=== PATIENT | male | born 1945 | race American Indian/Alaskan Native ===

== ENCOUNTER 2022-01-29 15:57 | Inpatient (IN) | payer MEDICARE ==
[2022-01-30 09:55] LABS: Basophils % (Auto) 0.5 % (0.0-1.8); Eosinophils # (Auto) 0.1 K/mm3 (0.0-0.4); Eosinophils % (Auto) 1.6 % (0.0-4.3); Hemoglobin 13.5 gm/dl (11.8-15.2); Lymphocytes # (Auto) 1.5 K/mm3 (1.2-5.4); Lymphocytes % (Auto) 26.8 % (13.4-35.0); Mean Corpuscular HGB Conc 33 % (32-34); Mean Corpuscular Volume 84 fl (84-94); Monocytes # (Auto) 0.6 K/mm3 (0.0-0.8); Monocytes % (Auto) 10.4 % (0.0-7.3); Platelet Count 116 K/mm3 (140-440); Red Blood Count 4.87 M/mm3 (3.65-5.03); Red Cell Distribution Width 14.2 % (13.2-15.2)
[2022-01-30 10:17] LABS: Alanine Aminotransferase 16 units/L (7-56); Albumin 4.1 g/dL (3.9-5); BUN/Creatinine Ratio 13; Blood Urea Nitrogen 16 mg/dL (9-20); Calcium 9.4 mg/dL (8.4-10.2); HDL Cholesterol 50 mg/dL (40-59); Hemolysis Index 10; LDL Cholesterol,Direct 38 mg/dL (50-130)
--- NOTE | 2022-01-30 10:57 | History and Physical Report ---
GP History & Physical - History of Present Illness Date of admission: 01/29/22 Date of Examination: 01/30/22 Reason for Admission: Danger to self, Failure of Outpatient Treatment, Severe anxiety/depression History of Present Illness: HPI: Pt reportedly had made suicidal statements & had been a little bit threatening to others physically & verbally. The patient was seen today. He is a 76y/o male patient who was admitted to the ted-psych unit for suicidal statements and threats toward others. The patient is confused. He has poor insight and unable to be engaged in the evaluation due to his cognition. The patient could not tell me why he was brought to the hospital. He is rambling about "my life, and what they want me to do." PAST PSYCHIATRIC HISTORY: PAST MEDICAL HISTORY: None reported or document Family Psychiatric History: None reported or documented SOCIAL HISTORY REVIEW OF SYSTEMS MENTAL STATUS EXAMINATION Diagnoses: Dementia with behavioral disturbances Treatment Plan: Patient admitted for inpatient psychiatric evaluation, medication adjustment and close monitoring The patient's behavior, mood, sleep and appetite will be closely monitored. Patient enrolled in individual and group therapeutic sessions and encouraged to attend. Patient provided with a safe and structured environment. Patient's physical health needs will be addressed by the Hospitalist. Hospitalist Consulted Labs including CBC, CMP, Lipid profile and Hemoglobin A1C levels ordered for baseline reference Social Assessment will be completed and the Barrel Straightener will work with patient and family to ensure a suitable and safe disposition Medication adjustment will be made as clinically indicated Restarted home meds Usual Wellness Religion/Preservation: - Start Trazodone 50 mg po QHS & 50 mg po QHS PRN between 10 PM & 2 AM for insomnia - Start Melatonin 5 mg po QHS to promote circadian rhythm The patient agreed on the treatment plan, understood the risk, benefit, alternative treatment, potential consequence of no treatment, and gave informed consent. Estimated days: 7 Legal Status: Voluntary Reaction to Hospitalization: Accepting Medications and Allergies Allergies Allergy/AdvReac Type Severity Reaction Status Date / Time No Known Allergies Allergy Verified 01/29/22 22:41 Home Medications Medication Instructions Recorded Confirmed Last Taken Type Albuterol Sulfate [Proair 90 mcg IH BID PRN 01/30/22 01/30/22 Unknown History Respiclick] Apixaban [Eliquis] 5 mg PO BID 01/30/22 01/30/22 Unknown History AtorvaSTATin [Lipitor] 40 mg PO QHS 01/30/22 01/30/22 Unknown History Clopidogrel [Plavix] 75 mg PO QDAY 01/30/22 01/30/22 Unknown History Docusate Sodium [Colace] 100 mg PO BID 01/30/22 01/30/22 Unknown History FLUoxetine [PROzac] 20 mg PO QDAY 01/30/22 01/30/22 Unknown History Gabapentin 200 mg PO TID 01/30/22 01/30/22 Unknown History Insulin Degludec (Nf) [Tresiba 40 units SQ DAILY 01/30/22 01/30/22 Unknown History Flextouch U-100 (Nf)] Losartan [Cozaar] 50 mg PO QDAY 01/30/22 01/30/22 Unknown History Quetiapine Fumarate [SEROquel] 50 mg PO BID 01/30/22 01/30/22 Unknown History Tamsulosin [Flomax] 0.8 mg PO HS 01/30/22 01/30/22 Unknown History amLODIPine [Norvasc] 5 mg PO DAILY 01/30/22 01/30/22 Unknown History donepeziL [Aricept] 5 mg PO HS 01/30/22 01/30/22 Unknown History Results - Results Labs/Vitals: Laboratory Last Values WBC 5.7 K/mm3 (4.5-11.0) 01/30/22 09:02 RBC 4.87 M/mm3 (3.65-5.03) 01/30/22 09:02 Hgb 13.5 gm/dl (11.8-15.2) 01/30/22 09:02 Hct 41.0 % (35.5-45.6) 01/30/22 09:02 MCV 84 fl (84-94) 01/30/22 09:02 MCH 28 pg (28-32) 01/30/22 09:02 MCHC 33 % (32-34) 01/30/22 09:02 RDW 14.2 % (13.2-15.2) 01/30/22 09:02 Plt Count 116 K/mm3 (140-440) L 01/30/22 09:02 Lymph % (Auto) 26.8 % (13.4-35.0) 01/30/22 09:02 [place] % (Auto) 10.4 % (0.0-7.3) H 01/30/22 09:02 Eos % (Auto) 1.6 % (0.0-4.3) 01/30/22 09:02 Baso % (Auto) 0.5 % (0.0-1.8) 01/30/22 09:02 Lymph # (Auto) 1.5 K/mm3 (1.2-5.4) 01/30/22 09:02 [place] # (Auto) 0.6 K/mm3 (0.0-0.8) 01/30/22 09:02 Eos # (Auto) 0.1 K/mm3 (0.0-0.4) 01/30/22 09:02 Baso # (Auto) 0.0 K/mm3 (0.0-0.1) 01/30/22 09:02 Seg Neutrophils % 60.7 % (40.0-70.0) 01/30/22 09:02 Seg Neutrophils # 3.4 K/mm3 (1.8-7.7) 01/30/22 09:02 Sodium 136 mmol/L (137-145) L 01/30/22 09:02 Potassium 4.2 mmol/L (3.6-5.0) 01/30/22 09:02 Chloride 102.6 mmol/L (98-107) 01/30/22 09:02 Carbon Dioxide 22 mmol/L (22-30) 01/30/22 09:02 Anion Gap 16 mmol/L 01/30/22 09:02 BUN 16 mg/dL (9-20) 01/30/22 09:02 Creatinine 1.2 mg/dL (0.8-1.3) 01/30/22 09:02 Estimated GFR > 60 ml/min 01/30/22 09:02 BUN/Creatinine Ratio 13 % 01/30/22 09:02 Glucose 243 mg/dL (75-100) H 01/30/22 09:02 Hemoglobin A1c 8.9 % (4-6) H 01/30/22 09:02 Calcium 9.4 mg/dL (8.4-10.2) 01/30/22 09:02 Total Bilirubin 0.50 mg/dL (0.1-1.2) 01/30/22 09:02 AST 17 units/L (5-40) 01/30/22 09:02 ALT 16 units/L (7-56) 05/20/22 09:02 Alkaline Phosphatase 89 units/L (35-129) 01/30/22 09:02 Total Protein 7.6 g/dL (6.3-8.2) 01/30/22 09:02 Albumin 4.1 g/dL (3.9-5) 01/30/22 09:02 Albumin/Globulin Ratio 1.2 % 01/30/22 09:02 Triglycerides 76 mg/dL (2-149) 01/30/22 09:02 Cholesterol 100 mg/dL (50-199) 01/30/22 09:02 LDL Cholesterol Direct 38 mg/dL (50-130) L 01/30/22 09:02 HDL Cholesterol 50 mg/dL (40-59) 01/30/22 09:02 Cholesterol/HDL Ratio 2.00 % 01/30/22 09:02 TSH 1.020 mlU/mL (0.270-4.200) 01/30/22 09:02 Last Vital Signs Temp 98.1 F 01/29/22 22:41 Pulse 118 H 01/29/22 22:41 Resp 20 01/29/22 22:41 BP 129/88 01/29/22 22:41 Pulse Ox 99 01/29/22 22:41 Physical Examination - Constitutional Vitals: Vital Signs Temp Pulse Resp BP Pulse Ox 98.1 F 118 H 20 129/88 99 01/29/22 22:41 01/29/22 22:41 01/29/22 22:41 01/29/22 22:41 01/29/22 22:41 Temperature -Last 24 Hours Temperature 98.1 F Mental Status Exam - Vital signs Last Vital Signs Temp 98.1 F 01/29/22 22:41 Pulse 118 H 01/29/22 22:41 Resp 20 01/29/22 22:41 BP 129/88 01/29/22 22:41 Pulse Ox 99 01/29/22 22:41 Physician Certification - Certification Statement Physician Certification Statement: This is an acknowledgement statement that JIMENA GUZMÁN is a 76 year old M who requires inpatient psychiatric admission for treatment which could reasonabl y be expected to improve the patient's condition for Estimated period of time patient will need to remain in the hospital: [ ] Plan for post-hospital care: [ ]
[2022-01-30] MEDS ORDERED: NON-FORMULARY EACH (Albuterol Sulfate [Proair Respiclick] 90 MCG Aer.Pow.Ba) IH PRN (11:02)
[2022-01-30 11:05] LABS: Hepatitis B Surface Antigen Non-Reactive (Negative); Hepatitis C Virus Antibody Non-Reactive (NonReactive)
[2022-01-30] MEDS ORDERED: INSULN SQ SCH (11:15)
[2022-01-30] MEDS ORDERED: INSULIN DEGLUDEC 100 UNIT/ML SQ SCH (11:15)
[2022-01-30] MEDS ORDERED: NON-FORMULARY EACH (Quetiapine Fumarate [Seroquel] 50 MG Tablet) PO SCH (11:15)
[2022-01-30] MEDS ORDERED: ALBUTEROL 2.5 MG/3 ML NEBU IH PRN (11:23)
[2022-01-30] MEDS ORDERED: FLUoxetine 20 MG CAP PO SCH (12:00)
[2022-01-30] MEDS: LOSARTAN 50 MG TAB PO SCH (12:20)
[2022-01-30] MEDS: CLOPIDOGREL 75 MG TAB PO SCH (12:21)
[2022-01-30] MEDS: amLODIPine 5 MG TAB PO SCH (12:23)
[2022-01-30] MEDS: DOCUSATE SODIUM 100 MG CAP PO SCH ×2 (12:23→22:03)
[2022-01-30] MEDS: GABAPENTIN 100 MG CAP PO SCH ×2 (13:43→22:04)
[2022-01-30] MEDS ORDERED: DEXTROSE 50% IN WATER (25GM) 50 ML SYRINGE IV PRN (15:15)
[2022-01-30] MEDS: INSULIN LISPRO 100 UNIT/ML SUB-Q SCH ×2 (16:36→22:19)
--- NOTE | 2022-01-30 21:45 | Consultation ---
History of Present Illness - Reason for Consult Consult date: 01/29/22 Medical management Requesting physician: DAVID MAS - History of Present Illness 76 YO Male Vascular Dementia with Behavioral Disturbance, Cerebral Atherosclerosis, DM, HTN, Encephalopathy admitted to [facility] for psychiatric stabilization. Consult placed by Dr. Mas for medical ma nagement. Patient seen and evaluated in the patient room. No reports of fever, chills, chest pain, palpitation, productive cough, skin rash, recent contact, known exposure to COVID-19. Patient resting comfortably. No reported nursing events. Patient exhibits diminished cognition and aphasia. Patient remains at baseline level of cognition and function. Past History Past Medical History: diabetes, hypertension Past Surgical History: No surgical history, Other (Reviewed) Social history: single. denies: smoking, alcohol abuse, prescription drug abuse Family history: hypertension Medications and Allergies Allergies Allergy/AdvReac Type Severity Reaction Status Date / Time No Known Allergies Allergy Verified 01/29/22 22:41 Home Medications Medication Instructions Recorded Confirmed Last Taken Type Albuterol Sulfate [Proair 90 mcg IH BID PRN 01/30/22 01/30/22 Unknown History Respiclick] Apixaban [Eliquis] 5 mg PO BID 01/30/22 01/30/22 Unknown History AtorvaSTATin [Lipitor] 40 mg PO QHS 01/30/22 01/30/22 Unknown History Clopidogrel [Plavix] 75 mg PO QDAY 01/30/22 01/30/22 Unknown History Docusate Sodium [Colace] 100 mg PO BID 01/30/22 01/30/22 Unknown History FLUoxetine [PROzac] 20 mg PO QDAY 01/30/22 01/30/22 Unknown History Gabapentin 200 mg PO TID 01/30/22 01/30/22 Unknown History Insulin Degludec (Nf) [Tresiba 40 units SQ DAILY 01/30/22 01/30/22 Unknown History Flextouch U-100 (Nf)] Losartan [Cozaar] 50 mg PO QDAY 01/30/22 01/30/22 Unknown History Quetiapine Fumarate [SEROquel] 50 mg PO BID 01/30/22 01/30/22 Unknown History Tamsulosin [Flomax] 0.8 mg PO HS 01/30/22 01/30/22 Unknown History amLODIPine [Norvasc] 5 mg PO DAILY 01/30/22 01/30/22 Unknown History donepeziL [Aricept] 5 mg PO HS 01/30/22 01/30/22 Unknown History Active Meds: Active Medications Albuterol (Albuterol 2.5 Mg/3 Ml Nebu) 2.5 mg IH Q4HRT PRN PRN Reason: Shortness Of Breath Amlodipine Besylate (Amlodipine 5 Mg Tab) 5 mg PO DAILY [facility] Last Admin: 01/30/22 12:23 Dose: 5 mg Atorvastatin Calcium (Atorvastatin 40 Mg Tab) 40 mg PO QHS [facility] Clopidogrel Bisulfate (Clopidogrel 75 Mg Tab) 75 mg PO QDAY [facility] Last Admin: 01/30/22 12:21 Dose: 75 mg Dextrose (Dextrose 50% In Water (25gm) 50 Ml Syringe) 50 ml IV Q30MIN PRN; Protocol PRN Reason: Hypoglycemia Docusate Sodium (Docusate Sodium 100 Mg Cap) 100 mg PO BID [facility] Last Admin: 01/30/22 12:23 Dose: 100 mg Donepezil HCl (Donepezil 5 Mg Tab) 5 mg PO [facility] Fluoxetine HCl (Fluoxetine 20 Mg Cap) 20 mg PO QDAY [facility] Last Admin: 01/30/22 12:21 Dose: 20 mg Gabapentin (Gabapentin 100 Mg Cap) 200 mg PO TID [facility] Last Admin: 01/30/22 13:43 Dose: 200 mg Insulin Glargine (Insulin Glargine 100 Units/Ml) 40 units SUB-Q QHS [facility] Insulin Human Lispro (Insulin Lispro 100 Unit/Ml) 0 unit SUB-Q [facility]; Protocol Last Admin: 01/30/22 16:36 Dose: 6 unit Losartan Potassium (Losartan 50 Mg Tab) 50 mg PO QDAY [facility] Last Admin: 01/30/22 12:20 Dose: 50 mg Quetiapine Fumarate (Quetiapine 25 Mg Tab) 50 mg PO BID [facility] Tamsulosin HCl (Tamsulosin 0.4 Mg Cap) 0.8 mg PO [facility] Review of Systems Constitutional: no weight loss, no weight gain, no fever Ears, nose, mouth and throat: no tinnitis, no decreased hearing, no nasal discharge Cardiovascular: no chest pain, no rapid/irregular heart beat, no syncope Respiratory: no cough, no excessive sputum, no shortness of breath Gastrointestinal: no nausea, no diarrhea, no constipation Genitourinary Male: no hematuria, no urinary frequency, no nocturia Rectal: no pain Musculoskeletal: no low back pain, no redness of joints Integumentary: no pruritis, no sores Neurological: no parathesias, no tingling, no seizures, no syncope Psychiatric: confusion, irritability, no anxiety Endocrine: no cold intolerance, no polyphagia, no excessive thirst, no polyuria Hematologic/Lymphatic: no easy bruising Allergic/Immunologic: no urticaria, no wheezing Exam - Constitutional Vitals: Temp Pulse Resp BP Pulse Ox 98.5 F 83 18 158/87 98 01/30/22 20:58 01/30/22 20:58 01/30/22 20:58 01/30/22 20:58 01/30/22 20:58 General appearance: Present: no acute distress - EENT Eyes: Present: PERRL ENT: hearing intact, clear oral mucosa - Neck Neck: Present: supple, normal ROM - Respiratory Respiratory effort: normal Respiratory: bilateral: CTA - Cardiovascular Heart Sounds: Present: S1 & S2. Absent: rub, click - Extremities Extremities: pulses symmetrical, No edema Peripheral Pulses: within normal limits - Abdominal General gastrointestinal: Present: soft, non-tender, non-distended, normal bowel sounds Male genitourinary: Present: normal - Integumentary Integumentary: Present: clear, warm, dry - Musculoskeletal Musculoskeletal: generalized weakness - Psychiatric Psychiatric: no appropriate mood/affect, no intact judgment & insight, no memory intact, agitated - Neurologic Neurologic: CNII-XII intact, moves all extremities, no gait normal Results - Labs CBC & Chem 7: 01/30/22 09:02 01/30/22 09:02 Labs: Abnormal lab results 01/30/22 01/30/22 01/30/22 Range/Units 06:26 09:02 09:02 Plt Count 116 L (140-440) K/mm3 [place] % (Auto) 10.4 H (0.0-7.3) % Sodium 136 L (137-145) mmol/L Glucose 243 H (75-100) mg/dL POC Glucose 190 H (70-105) mg/dL Hemoglobin A1c (4-6) % LDL Cholesterol Direct 38 L (50-130) mg/dL 05/20/22 05/20/22 05/20/22 Range/Units 09:02 11:30 16:11 Plt Count (140-440) K/mm3 [place] % (Auto) (0.0-7.3) % Sodium (137-145) mmol/L Glucose (75-100) mg/dL POC Glucose 281 H 301 H (70-105) mg/dL Hemoglobin A1c 8.9 H (4-6) % LDL Cholesterol Direct (50-130) mg/dL Assessment and Plan - Patient Problems (1) Vascular dementia with behavioral disturbance Current Visit: Yes Status: Acute Plan to address problem: Verbal prompting, verbal redirection, benzodiazepine therapy as clinically indic ated. (2) Cerebral atherosclerosis Current Visit: Yes Status: Acute Plan to address problem: Antiplatelet therapy as clinically indicated, supportive care. (3) Hypertension Current Visit: Yes Status: Acute Qualifiers: Hypertension type: primary hypertension Qualified Code(s): I10 - Essential (primary) hypertension Plan to address problem: Monitor blood pressure every shift, continue medical management. (4) Diabetes Current Visit: Yes Status: Acute Plan to address problem: Consistent carbohydrate diet, Accu-Chek, insulin protocol, hypoglycemia prot ocol. (5) Advance care planning Current Visit: Yes Status: Acute Plan to address problem: Disease education done, care plan discussed, diagnoses discussed, prognosis discussed, +30 minutes.
[2022-01-30] MEDS: QUEtiapine 25 MG TAB PO SCH (22:03)
[2022-01-30] MEDS: TAMSULOSIN 0.4 MG CAP PO SCH (22:04)
[2022-01-30] MEDS: DONEPEZIL 5 MG TAB PO SCH (22:04)
[2022-01-30] MEDS: INSULIN GLARGINE 100 UNITS/ML SUB-Q SCH (22:18)
[2022-01-31] MEDS: INSULIN LISPRO 100 UNIT/ML SUB-Q SCH ×4 (07:30→22:00)
--- NOTE | 2022-01-31 08:49 | Progress Note ---
Subjective Date of service: 01/31/22 Principal diagnosis: Dementia w/behavioral disturbance Subjective Comment: The patient was seen today. He is confused and has poor insight. He says "they woke up with me last night." He's unable to engage in the evaluation due to his insight. REVIEW OF SYSTEMS MENTAL STATUS EXAMINATION Diagnoses: Dementia with behavioral disturbances Treatment Plan: Patient admitted for inpatient psychiatric evaluation, medication adjustment and close monitoring The patient's behavior, mood, sleep and appetite will be closely monitored. Patient enrolled in individual and group therapeutic sessions and encouraged to attend. Patient provided with a safe and structured environment. Patient's physical health needs will be addressed by the Hospitalist. Hospita list Consulted Labs including CBC, CMP, Lipid profile and Hemoglobin A1C levels ordered for baseline reference Social Assessment will be completed and the Clinical Audiologist will work with patient and family to ensure a suitable and safe disposition Medication adjustment will be made as clinically indicated Increased Prozac 30mg po daily Usual Wellness Tenriism/Preservation: - Start Trazodone 50 mg po QHS & 50 mg po QHS PRN between 10 PM & 2 AM for insomnia - Start Melatonin 5 mg po QHS to promote circadian rhythm The patient agreed on the treatment plan, understood the risk, benefit, alternative treatment, potential consequence of no treatment, and gave informed consent. Estimated days: 7 Medications and Allergies Allergies Allergy/AdvReac Type Severity Reaction Status Date / Time No Known Allergies Allergy Verified 01/29/22 22:41 Home Medications Medication Instructions Recorded Confirmed Last Taken Type Albuterol Sulfate [Proair 90 mcg IH BID PRN 01/30/22 01/30/22 Unknown History Respiclick] Apixaban [Eliquis] 5 mg PO BID 01/30/22 01/30/22 Unknown History AtorvaSTATin [Lipitor] 40 mg PO QHS 01/30/22 01/30/22 Unknown History Clopidogrel [Plavix] 75 mg PO QDAY 01/30/22 01/30/22 Unknown History Docusate Sodium [Colace] 100 mg PO BID 01/30/22 01/30/22 Unknown History FLUoxetine [PROzac] 20 mg PO QDAY 01/30/22 01/30/22 Unknown History Gabapentin 200 mg PO TID 01/30/22 01/30/22 Unknown History Insulin Degludec (Nf) [Tresiba 40 units SQ DAILY 01/30/22 01/30/22 Unknown History Flextouch U-100 (Nf)] Losartan [Cozaar] 50 mg PO QDAY 01/30/22 01/30/22 Unknown History Quetiapine Fumarate [SEROquel] 50 mg PO BID 01/30/22 01/30/22 Unknown History Tamsulosin [Flomax] 0.8 mg PO HS 01/30/22 01/30/22 Unknown History amLODIPine [Norvasc] 5 mg PO DAILY 01/30/22 01/30/22 Unknown History donepeziL [Aricept] 5 mg PO HS 01/30/22 01/30/22 Unknown History Active Meds: Active Medications Albuterol (Albuterol 2.5 Mg/3 Ml Nebu) 2.5 mg IH Q4HRT PRN PRN Reason: Shortness Of Breath Amlodipine Besylate (Amlodipine 5 Mg Tab) 5 mg PO DAILY [facility] Last Admin: 01/30/22 12:23 Dose: 5 mg Atorvastatin Calcium (Atorvastatin 40 Mg Tab) 40 mg PO QHS [facility] Last Admin: 01/30/22 22:04 Dose: 40 mg Clopidogrel Bisulfate (Clopidogrel 75 Mg Tab) 75 mg PO QDAY [facility] Last Admin: 01/30/22 12:21 Dose: 75 mg Dextrose (Dextrose 50% In Water (25gm) 50 Ml Syringe) 50 ml IV Q30MIN PRN; Protocol PRN Reason: Hypoglycemia Docusate Sodium (Docusate Sodium 100 Mg Cap) 100 mg PO BID [facility] Last Admin: 01/30/22 22:03 Dose: 100 mg Donepezil HCl (Donepezil 5 Mg Tab) 5 mg PO [facility] Last Admin: 01/30/22 22:04 Dose: 5 mg Fluoxetine HCl (Fluoxetine 20 Mg Cap) 20 mg PO QDAY [facility] Last Admin: 01/30/22 12:21 Dose: 20 mg Gabapentin (Gabapentin 100 Mg Cap) 200 mg PO TID [facility] Last Admin: 01/30/22 22:04 Dose: 200 mg Insulin Glargine (Insulin Glargine 100 Units/Ml) 40 units SUB-Q QHS [facility] Last Admin: 01/30/22 22:18 Dose: 40 units Insulin Human Lispro (Insulin Lispro 100 Unit/Ml) 0 unit SUB-Q [facility]; P rotocol Last Admin: 01/30/22 22:19 Dose: 3 unit Losartan Potassium (Losartan 50 Mg Tab) 50 mg PO QDAY [facility] Last Admin: 01/30/22 12:20 Dose: 50 mg Quetiapine Fumarate (Quetiapine 25 Mg Tab) 50 mg PO BID [facility] Last Admin: 01/30/22 22:03 Dose: 50 mg Tamsulosin HCl (Tamsulosin 0.4 Mg Cap) 0.8 mg PO HS [facility] Last Admin: 01/30/22 22:04 Dose: 0.8 mg Results - Results Labs/Vitals: Laboratory Last Values WBC 5.7 K/mm3 (4.5-11.0) 01/30/22 09:02 RBC 4.87 M/mm3 (3.65-5.03) 01/30/22 09:02 Hgb 13.5 gm/dl (11.8-15.2) 01/30/22 09:02 Hct 41.0 % (35.5-45.6) 01/30/22 09:02 MCV 84 fl (84-94) 01/30/22 09:02 MCH 28 pg (28-32) 01/30/22 09:02 MCHC 33 % (32-34) 01/30/22 09:02 RDW 14.2 % (13.2-15.2) 01/30/22 09:02 Plt Count 116 K/mm3 (140-440) L 01/30/22 09:02 Lymph % (Auto) 26.8 % (13.4-35.0) 01/30/22 09:02 [place] % (Auto) 10.4 % (0.0-7.3) H 01/30/22 09:02 Eos % (Auto) 1.6 % (0.0-4.3) 01/30/22 09:02 Baso % (Auto) 0.5 % (0.0-1.8) 01/30/22 09:02 Lymph # (Auto) 1.5 K/mm3 (1.2-5.4) 01/30/22 09:02 [place] # (Auto) 0.6 K/mm3 (0.0-0.8) 01/30/22 09:02 Eos # (Auto) 0.1 K/mm3 (0.0-0.4) 01/30/22 09:02 Baso # (Auto) 0.0 K/mm3 (0.0-0.1) 01/30/22 09:02 Seg Neutrophils % 60.7 % (40.0-70.0) 01/30/22 09:02 Seg Neutrophils # 3.4 K/mm3 (1.8-7.7) 01/30/22 09:02 Sodium 136 mmol/L (137-145) L 01/30/22 09:02 Potassium 4.2 mmol/L (3.6-5.0) 01/30/22 09:02 Chloride 102.6 mmol/L (98-107) 01/30/22 09:02 Carbon Dioxide 22 mmol/L (22-30) 01/30/22 09:02 Anion Gap 16 mmol/L 01/30/22 09:02 BUN 16 mg/dL (9-20) 01/30/22 09:02 Creatinine 1.2 mg/dL (0.8-1.3) 01/30/22 09:02 Estimated GFR > 60 ml/min 01/30/22 09:02 BUN/Creatinine Ratio 13 % 01/30/22 09:02 Glucose 243 mg/dL (75-100) H 01/30/22 09:02 POC Glucose 240 mg/dL (70-105) H 01/30/22 19:42 Hemoglobin A1c 8.9 % (4-6) H 01/30/22 09:02 Calcium 9.4 mg/dL (8.4-10.2) 01/30/22 09:02 Total Bilirubin 0.50 mg/dL (0.1-1.2) 01/30/22 09:02 AST 17 units/L (5-40) 01/30/22 09:02 ALT 16 units/L (7-56) 01/30/22 09:02 Alkaline Phosphatase 89 units/L (35-129) 01/30/22 09:02 Total Protein 7.6 g/dL (6.3-8.2) 01/30/22 09:02 Albumin 4.1 g/dL (3.9-5) 01/30/22 09:02 Albumin/Globulin Ratio 1.2 % 01/30/22 09:02 Triglycerides 76 mg/dL (2-149) 01/30/22 09:02 Cholesterol 100 mg/dL (50-199) 01/30/22 09:02 LDL Cholesterol Direct 38 mg/dL (50-130) L 01/30/22 09:02 HDL Cholesterol 50 mg/dL (40-59) 01/30/22 09:02 Cholesterol/HDL Ratio 2.00 % 01/30/22 09:02 TSH 1.020 mlU/mL (0.270-4.200) 01/30/22 09:02 Hepatitis A IgM Ab Non-reactive (NonReactive) 01/30/22 09: Hep Bs Antigen Non-reactive (Negative) 01/30/22: Hep B Core IgM Ab Non-reactive (NonReactive) 01/30/22 09:02 Hepatitis C Antibody Non-reactive (NonReactive) 01/30/22 09:02 Last Vital Signs Temp 98.5 F 01/30/22 20:58 Pulse 83 01/30/22 20:58 Resp 18 01/30/22 20:58 BP 158/87 01/30/22 20:58 Pulse Ox 98 01/30/22 20:58
[2022-01-31] MEDS: GABAPENTIN 100 MG CAP PO SCH ×3 (09:04→20:29)
[2022-01-31] MEDS: DOCUSATE SODIUM 100 MG CAP PO SCH ×2 (09:05→21:19)
[2022-01-31] MEDS: CLOPIDOGREL 75 MG TAB PO SCH (09:05)
[2022-01-31] MEDS: QUEtiapine 25 MG TAB PO SCH ×2 (09:05→21:19)
[2022-01-31] MEDS: FLUoxetine 10 MG TAB PO SCH (09:05)
[2022-01-31] MEDS: amLODIPine 5 MG TAB PO SCH (10:07)
[2022-01-31] MEDS: LOSARTAN 50 MG TAB PO SCH (10:08)
[2022-01-31] MEDS: TAMSULOSIN 0.4 MG CAP PO SCH (21:19)
[2022-01-31] MEDS: DONEPEZIL 5 MG TAB PO SCH (21:19)
[2022-02-01] MEDS: INSULIN GLARGINE 100 UNITS/ML SUB-Q SCH ×2 (06:57→21:48)
[2022-02-01] MEDS: INSULIN LISPRO 100 UNIT/ML SUB-Q SCH ×4 (07:30→21:48)
[2022-02-01] MEDS: GABAPENTIN 100 MG CAP PO SCH ×3 (08:19→21:00)
[2022-02-01] MEDS: DOCUSATE SODIUM 100 MG CAP PO SCH ×2 (09:19→21:05)
[2022-02-01] MEDS: FLUoxetine 10 MG TAB PO SCH (09:20)
[2022-02-01] MEDS: LOSARTAN 50 MG TAB PO SCH (09:20)
[2022-02-01] MEDS: QUEtiapine 25 MG TAB PO SCH ×2 (09:20→21:05)
[2022-02-01] MEDS: CLOPIDOGREL 75 MG TAB PO SCH (09:20)
[2022-02-01] MEDS: amLODIPine 5 MG TAB PO SCH (10:00)
--- NOTE | 2022-02-01 10:50 | Progress Note ---
Subjective Date of service: 02/01/22 Principal diagnosis: Dementia w/behavioral disturbance Subjective Comment: The patient was seen today. He is confused and unable to engage in the evaluation. He is talking nonsensically. He says "I don't know who moved me here." He then says "it was supposed to been three numbers." 01/31 The patient was seen today. He is confused and has poor insight. He says "they woke up with me last night." He's unable to engage in the evaluation due to his insight. REVIEW OF SYSTEMS MENTAL STATUS EXAMINATION Diagnoses: Dementia with behavioral disturbances Treatment Plan: Patient admitted for inpatient psychiatric evaluation, medication adjustment and close monitoring The patient's behavior, mood, sleep and appetite will be closely monitored. Patient enrolled in individual and group therapeutic sessions and encouraged to attend. Patient provided with a safe and structured environment. Patient's physical health needs will be addressed by the Hospitalist. Hospitalist Consulted Labs including CBC, CMP, Lipid profile and Hemoglobin A1C levels ordered for baseline reference Social Assessment will be completed and the Elementary Esl Teacher will work with patient and family to ensure a suitable and safe disposition Medication adjustment will be made as clinically indicated Increased Prozac 30mg po daily for underlying depression yesterday Usual Wellness Judaism/Preservation: - Start Trazodone 50 mg po QHS & 50 mg po QHS PRN between 10 PM & 2 AM for insomnia - Start Melatonin 5 mg po QHS to promote circadian rhythm The patient agreed on the treatment plan, understood the risk, benefit, alternative treatment, potential consequence of no treatment, and gave informed consent. Estimated days: 7 Medications and Allergies Allergies Allergy/AdvReac Type Severity Reaction Status Date / Time No Known Allergies Allergy Verified 01/29/22 22:41 Home Medications Medication Instructions Recorded Confirmed Last Taken Type Albuterol Sulfate [Proair 90 mcg IH BID PRN 01/30/22 01/30/22 Unknown History Respiclick] Apixaban [Eliquis] 5 mg PO BID 01/30/22 01/30/22 Unknown History AtorvaSTATin [Lipitor] 40 mg PO QHS 01/30/22 01/30/22 Unknown History Clopidogrel [Plavix] 75 mg PO QDAY 01/30/22 01/30/22 Unknown History Docusate Sodium [Colace] 100 mg PO BID 01/30/22 01/30/22 Unknown History FLUoxetine [PROzac] 20 mg PO QDAY 01/30/22 01/30/22 Unknown History Gabapentin 200 mg PO TID 01/30/22 01/30/22 Unknown History Insulin Degludec (Nf) [Tresiba 40 units SQ DAILY 01/30/22 01/30/22 Unknown History Flextouch U-100 (Nf)] Losartan [Cozaar] 50 mg PO QDAY 01/30/22 01/30/22 Unknown History Quetiapine Fumarate [SEROquel] 50 mg PO BID 01/30/22 01/30/22 Unknown History Tamsulosin [Flomax] 0.8 mg PO HS 01/30/22 01/30/22 Unknown History amLODIPine [Norvasc] 5 mg PO DAILY 01/30/22 01/30/22 Unknown History donepeziL [Aricept] 5 mg PO HS 01/30/22 01/30/22 Unknown History Active Meds: Active Medications Albuterol (Albuterol 2.5 Mg/3 Ml Nebu) 2.5 mg IH Q4HRT PRN PRN Reason: Shortness Of Breath Amlodipine Besylate (Amlodipine 5 Mg Tab) 5 mg PO DAILY [facility] Last Admin: 01/31/22 10:07 Dose: 5 mg Atorvastatin Calcium (Atorvastatin 40 Mg Tab) 40 mg PO QHS [facility] Last Admin: 01/31/22 21:19 Dose: 40 mg Clopidogrel Bisulfate (Clopidogrel 75 Mg Tab) 75 mg PO QDAY [facility] Last Admin: 02/01/22 09:20 Dose: 75 mg Dextrose (Dextrose 50% In Water (25gm) 50 Ml Syringe) 50 ml IV Q30MIN PRN; Protocol PRN Reason: Hypoglycemia Docusate Sodium (Docusate Sodium 100 Mg Cap) 100 mg PO BID [facility] Last Admin: 02/01/22 09:19 Dose: 100 mg Donepezil HCl (Donepezil 5 Mg Tab) 5 mg PO [facility] Last Admin: 01/31/22 21:19 Dose: 5 mg Fluoxetine HCl (Fluoxetine 10 Mg Tab) 30 mg PO QDAY [facility] Last Admin: 02/01/22 09:20 Dose: 30 mg Gabapentin (Gabapentin 100 Mg Cap) 200 mg PO TID [facility] Last Admin: 02/01/22 08:19 Dose: 200 mg Insulin Glargine (Insulin Glargine 100 Units/Ml) 40 units SUB-Q QHS [facility] Last Admin: 02/01/22 06:57 Dose: 40 units Insulin Human Lispro (Insulin Lispro 100 Unit/Ml) 0 unit SUB-Q ACHS [facility]; Protocol Last Admin: 01/31/22 22:00 Dose: 8 unit Losartan Potassium (Losartan 50 Mg Tab) 50 mg PO QDAY [facility] Last Admin: 02/01/22 09:20 Dose: 50 mg Quetiapine Fumarate (Quetiapine 25 Mg Tab) 50 mg PO BID [facility] Last Admin: 02/01/22 09:20 Dose: 50 mg Tamsulosin HCl (Tamsulosin 0.4 Mg Cap) 0.8 mg PO HS [facility] Last Admin: 01/31/22 21:19 Dose: 0.8 mg Results - Results Labs/Vitals: Laboratory Last Values WBC 5.7 K/mm3 (4.5-11.0) 01/30/22 09:02 RBC 4.87 M/mm3 (3.65-5.03) 01/30/22 09:02 Hgb 13.5 gm/dl (11.8-15.2) 01/30/22 09:02 Hct 41.0 % (35.5-45.6) 01/30/22 09:02 MCV 84 fl (84-94) 01/30/22 09:02 MCH 28 pg (28-32) 01/30/22 09:02 MCHC 33 % (32-34) 01/30/22 09:02 RDW 14.2 % (13.2-15.2) 01/30/22 09:02 Plt Count 116 K/mm3 (140-440) L 01/30/22 09:02 Lymph % (Auto) 26.8 % (13.4-35.0) 01/30/22 09:02 [place] % (Auto) 10.4 % (0.0-7.3) H 01/30/22 09:02 Eos % (Auto) 1.6 % (0.0-4.3) 01/30/22 09:02 Baso % (Auto) 0.5 % (0.0-1.8) 01/30/22 09:02 Lymph # (Auto) 1.5 K/mm3 (1.2-5.4) 01/30/22 09:02 [place] # (Auto) 0.6 K/mm3 (0.0-0.8) 01/30/22 09:02 Eos # (Auto) 0.1 K/mm3 (0.0-0.4) 01/30/22 09:02 Baso # (Auto) 0.0 K/mm3 (0.0-0.1) 01/30/22 09:02 Seg Neutrophils % 60.7 % (40.0-70.0) 01/30/22 09:02 Seg Neutrophils # 3.4 K/mm3 (1.8-7.7) 01/30/22 09:02 Sodium 136 mmol/L (137-145) L 01/30/22 09:02 Potassium 4.2 mmol/L (3.6-5.0) 01/30/22 09:02 Chloride 102.6 mmol/L (98-107) 01/30/22 09:02 Carbon Dioxide 22 mmol/L (22-30) 01/30/22 09:02 Anion Gap 16 mmol/L 01/30/22 09:02 BUN 16 mg/dL (9-20) 01/30/22 09:02 Creatinine 1.2 mg/dL (0.8-1.3) 01/30/22 09:02 Estimated GFR > 60 ml/min 01/30/22 09:02 BUN/Creatinine Ratio 13 % 01/30/22 09:02 Glucose 243 mg/dL (75-100) H 01/30/22 09:02 POC Glucose 151 mg/dL (70-105) H 02/01/22 06:26 Hemoglobin A1c 8.9 % (4-6) H 01/30/22 09:02 Calcium 9.4 mg/dL (8.4-10.2) 01/30/22 09:02 Total Bilirubin 0.50 mg/dL (0.1-1.2) 01/30/22 09:02 AST 17 units/L (5-40) 01/30/22 09:02 ALT 16 units/L (7-56) 01/30/22 09:02 Alkaline Phosphatase 89 units/L (35-129) 01/30/22 09:02 Total Protein 7.6 g/dL (6.3-8.2) 01/30/22 09:02 Albumin 4.1 g/dL (3.9-5) 01/30/22 09:02 Albumin/Globulin Ratio 1.2 % 01/30/22 09:02 Triglycerides 76 mg/dL (2-149) 01/30/22 09:02 Cholesterol 100 mg/dL (50-199) 01/30/22 09:02 LDL Cholesterol Direct 38 mg/dL (50-130) L 01/30/22 09:02 HDL Cholesterol 50 mg/dL (40-59) 01/30/22 09:02 Cholesterol/HDL Ratio 2.00 % 01/30/22 09:02 TSH 1.020 mlU/mL (0.270-4.200) 01/30/22 09:02 Hepatitis A IgM Ab Non-reactive (NonReactive) 01/30/22 09:02 Hep Bs Antigen Non-reactive (Negative) 01/30/22 09:02 Hep B Core IgM Ab Non-reactive (NonReactive) 01/30/22 09:02 Hepatitis C Antibody Non-reactive (NonReactive) 01/30/22 09:02 Last Vital Signs Temp 98.2 F 02/01/22 08:21 Pulse 86 02/01/22 09:20 Resp 20 02/01/22 08:21 BP 127/76 02/01/22 09:20 Pulse Ox 100 02/01/22 08:21
[2022-02-01] MEDS: DONEPEZIL 5 MG TAB PO SCH (21:05)
[2022-02-01] MEDS: TAMSULOSIN 0.4 MG CAP PO SCH (21:05)
[2022-02-02] MEDS: INSULIN LISPRO 100 UNIT/ML SUB-Q SCH ×4 (07:43→22:29)
[2022-02-02] MEDS: GABAPENTIN 100 MG CAP PO SCH ×3 (08:09→20:27)
[2022-02-02] MEDS: FLUoxetine 10 MG TAB PO SCH (09:29)
[2022-02-02] MEDS: amLODIPine 5 MG TAB PO SCH (09:29)
[2022-02-02] MEDS: CLOPIDOGREL 75 MG TAB PO SCH (09:30)
[2022-02-02] MEDS: LOSARTAN 50 MG TAB PO SCH (09:30)
[2022-02-02] MEDS: DOCUSATE SODIUM 100 MG CAP PO SCH ×2 (09:30→21:25)
[2022-02-02] MEDS: QUEtiapine 25 MG TAB PO SCH ×2 (09:30→21:25)
--- NOTE | 2022-02-02 10:56 | Progress Note ---
Assessment and Plan - Patient Problems (1) Vascular dementia with behavioral disturbance Current Visit: Yes Status: Acute Plan to address problem: Verbal prompting, verbal redirection, benzodiazepine therapy as clinically indicated. (2) Cerebral atherosclerosis Current Visit: Yes Status: Acute Plan to address problem: Antiplatelet therapy as clinically indicated, supportive care. (3) Hypertension Current Visit: Yes Status: Acute Qualifiers: Hypertension type: primary hypertension Qualified Code(s): I10 - Essential (primary) hypertension Plan to address problem: Monitor blood pressure every shift, continue medical management. (4) Diabetes Current Visit: Yes Status: Acute Plan to address problem: Consistent carbohydrate diet, Accu-Chek, insulin protocol, hypoglycemia protocol. (5) Advance care planning Current Visit: Yes Status: Acute Plan to address problem: Disease education done, care plan discussed, diagnoses discussed, prognosis discussed, +30 minutes. History Interval history: 76 YO Male Vascular Dementia with Behavioral Disturbance, Cerebral Athe rosclerosis, DM, HTN, Encephalopathy admitted to [facility] for psychiatric stabilization. Consult placed by Dr. Zhang for medical management. Patient seen and evaluated in the recreation room. Patient resting comfortably. No reported nursing events. Patient exhibits diminished cognition and aphasia. Patient remains at baseline level of cognition and function. Hospitalist Physical - Constitutional Vitals: Temp Pulse Resp BP Pulse Ox 98.2 F 101 H 18 121/71 98 02/01/22 22:00 02/02/22 09:30 02/01/22 22:00 02/02/22 09:29 02/01/22 22:00 General appearance: Present: no acute distress - EENT Eyes: Present: PERRL ENT: hearing decreased - Neck Neck: Present: supple - Respiratory Respiratory effort: normal Respiratory: bilateral: diminished - Cardiovascular Rhythm: regular Heart Sounds: Present: S1 & S2 - Extremities Extremities: no ischemia Peripheral Pulses: within normal limits - Abdominal General gastrointestinal: soft, non-tender, non-distended - Integumentary Integumentary: Present: clear, dry - Psychiatric Psychiatric: cooperative - Neurologic Neurologic: CNII-XII intact Results - Labs CBC & Chem 7: 01/30/22 09:02 01/30/22 09:02 Labs: Laboratory Last Values WBC 5.7 K/mm3 (4.5-11.0) 01/30/22 09:02 RBC 4.87 M/mm3 (3.65-5.03) 01/30/22 09:02 Hgb 13.5 gm/dl (11.8-15.2) 01/30/22 09:02 Hct 41.0 % (35.5-45.6) 01/30/22 09:02 MCV 84 fl (84-94) 01/30/22 09:02 MCH 28 pg (28-32) 01/30/22 09:02 MCHC 33 % (32-34) 01/30/22 09:02 RDW 14.2 % (13.2-15.2) 01/30/22 09:02 Plt Count 116 K/mm3 (140-440) L 01/30/22 09:02 Lymph % (Auto) 26.8 % (13.4-35.0) 01/30/22 09:02 [place] % (Auto) 10.4 % (0.0-7.3) H 01/30/22 09:02 Eos % (Auto) 1.6 % (0.0-4.3) 01/30/22 09:02 Baso % (Auto) 0.5 % (0.0-1.8) 01/30/22 09:02 Lymph # (Auto) 1.5 K/mm3 (1.2-5.4) 01/30/22 09:02 [place] # (Auto) 0.6 K/mm3 (0.0-0.8) 01/30/22 09:02 Eos # (Auto) 0.1 K/mm3 (0.0-0.4) 01/30/22 09:02 Baso # (Auto) 0.0 K/mm3 (0.0-0.1) 01/30/22 09:02 Seg Neutrophils % 60.7 % (40.0-70.0) 01/30/22 09:02 Seg Neutrophils # 3.4 K/mm3 (1.8-7.7) 01/30/22 09:02 Sodium 136 mmol/L (137-145) L 01/30/22 09:02 Potassium 4.2 mmol/L (3.6-5.0) 01/30/22 09:02 Chloride 102.6 mmol/L (98-107) 01/30/22 09:02 Carbon Dioxide 22 mmol/L (22-30) 01/30/22 09:02 Anion Gap 16 mmol/L 01/30/22 09:02 BUN 16 mg/dL (9-20) 01/30/22 09:02 Creatinine 1.2 mg/dL (0.8-1.3) 01/30/22 09:02 Estimated GFR > 60 ml/min 01/30/22 09:02 BUN/Creatinine Ratio 13 % 01/30/22 09:02 Glucose 243 mg/dL (75-100) H 01/30/22 09:02 POC Glucose 160 mg/dL (70-105) H 02/02/22 06:08 Hemoglobin A1c 8.9 % (4-6) H 01/30/22 09:02 Calcium 9.4 mg/dL (8.4-10.2) 01/30/22 09:02 Total Bilirubin 0.50 mg/dL (0.1-1.2) 01/30/22 09:02 AST 17 units/L (5-40) 01/30/22 09:02 ALT 16 units/L (7-56) 01/30/22 09:02 Alkaline Phosphatase 89 units/L (35-129) 01/30/22 09:02 Total Protein 7.6 g/dL (6.3-8.2) 01/30/22 09:02 Albumin 4.1 g/dL (3.9-5) 01/30/22 09:02 Albumin/Globulin Ratio 1.2 % 01/30/22 09:02 Triglycerides 76 mg/dL (2-149) 01/30/22 09:02 Cholesterol 100 mg/dL (50-199) 01/30/22 09:02 LDL Cholesterol Direct 38 mg/dL (50-130) L 01/30/22 09:02 HDL Cholesterol 50 mg/dL (40-59) 01/30/22 09:02 Cholesterol/HDL Ratio 2.00 % 01/30/22 09:02 TSH 1.020 mlU/mL (0.270-4.200) 01/30/22 09:02 Hepatitis A IgM Ab Non-reactive (NonReactive) 01/30/22: Hep Bs Antigen Non-reactive (Negative) 01/30/22: Hep B Core IgM Ab Non-reactive (NonReactive) 01/30/22 09: Hepatitis C Antibody Non-reactive (NonReactive) 01/30/22 09:02 Manuel/IV: Voiding Method Toilet Active Medications - Current Medications Current Medications: Generic Name Dose Route Start Last Admin Trade Name Freq PRN Reason Stop Dose Admin Albuterol 2.5 mg 01/30/22 11:23 Albuterol 2.5 Mg/3 Ml Nebu IH Q4HRT PRN Shortness Of Breath Amlodipine Besylate 5 mg 01/30/22 12:00 02/02/22 09:29 Amlodipine 5 Mg Tab PO 5 mg DAILY TIFFANIE Administration Atorvastatin Calcium 40 mg 01/30/22 22:00 02/01/22 21:05 Atorvastatin 40 Mg Tab PO 40 mg QHS TIFFANIE Administration Clopidogrel Bisulfate 75 mg 01/30/22 12:00 02/02/22 09:30 Clopidogrel 75 Mg Tab PO 75 mg QDAY TIFFANIE Administration Dextrose 50 ml 01/30/22 15:15 Dextrose 50% In Water (25gm) 50 Ml Syringe IV Q30MIN PRN Hypoglycemia Protocol Docusate Sodium 100 mg 01/30/22 12:00 02/02/22 09:30 Docusate Sodium 100 Mg Cap PO 100 mg BID TIFFANIE Administration Donepezil HCl 5 mg 01/30/22 22:00 02/01/22 21:05 Donepezil 5 Mg Tab PO 5 mg HS TIFFANIE Administration Fluoxetine HCl 30 mg 01/31/22 10:00 02/02/22 09:29 Fluoxetine 10 Mg Tab PO 30 mg QDAY TIFFANIE Administration Gabapentin 200 mg 01/30/22 14:00 02/02/22 08:09 Gabapentin 100 Mg Cap PO 200 mg TID TIFFANIE Administration Insulin Glargine 40 units 01/30/22 22:00 02/01/22 21:48 Insulin Glargine 100 Units/Ml SUB-Q 40 units QHS TIFFANIE Administration Insulin Human Lispro 0 unit 01/30/22 16:30 02/02/22 07:43 Insulin Lispro 100 Unit/Ml SUB-Q 2 unit ACHS TIFFANIE Administration Protocol Losartan Potassium 50 mg 01/30/22 12:00 02/02/22 09:30 Losartan 50 Mg Tab PO 50 mg QDAY TIFFANIE Administration Quetiapine Fumarate 50 mg 01/30/22 22:00 02/02/22 09:30 Quetiapine 25 Mg Tab PO 50 mg BID TIFFANIE Administration Tamsulosin HCl 0.8 mg 01/30/22 22:00 02/01/22 21:05 Tamsulosin 0.4 Mg Cap PO 0.8 mg HS TIFFANIE Administration
--- NOTE | 2022-02-02 12:23 | Progress Note ---
Subjective Date of service: 02/02/22 Principal diagnosis: Dementia w/behavioral disturbance Subjective Comment: The patient was seen today. He is a little less confused today. He says he's doing okay. The patient says "I thought I was going home today." He denies SI/HI or hallucinations. He says he slept okay. 02/01 The patient was seen today. He is confused and unable to engage in the evaluation. He is talking nonsensically. He says "I don't know who moved me here ." He then says "it was supposed to been three numbers." 01/31 The patient was seen today. He is confused and has poor insight. He says "they woke up with me last night." He's unable to engage in the evaluation due to his insight. REVIEW OF SYSTEMS MENTAL STATUS EXAMINATION Diagnoses: Dementia with behavioral disturbances Treatment Plan: Patient admitted for inpatient psychiatric evaluation, medication adjustment and close monitoring The patient's behavior, mood, sleep and appetite will be closely monitored. Patient enrolled in individual and group therapeutic sessions and encouraged to attend. Patient provided with a safe and structured environment. Patient's physical health needs will be addressed by the Hospitalist. Hospitalist Consulted Labs including CBC, CMP, Lipid profile and Hemoglobin A1C levels ordered for baseline reference Social Assessment will be completed and the Channel Marketing Specialist will work with patient and family to ensure a suitable and safe disposition Medication adjustment will be made as clinically indicated Prozac 30mg po daily for underlying depression Usual Wellness Holiness/Preservation: - Start Trazodone 50 mg po QHS & 50 mg po QHS PRN between 10 PM & 2 AM for insomnia - Start Melatonin 5 mg po QHS to promote circadian rhythm The patient agreed on the treatment plan, understood the risk, benefit, alternative treatment, potential consequence of no treatment, and gave informed consent. Estimated days: 7 Medications and Allergies Allergies Allergy/AdvReac Type Severity Reaction Status Date / Time No Known Allergies Allergy Verified 01/29/22 22:41 Home Medications Medication Instructions Recorded Confirmed Last Taken Type Albuterol Sulfate [Proair 90 mcg IH BID PRN 01/30/22 01/30/22 Unknown History Respiclick] Apixaban [Eliquis] 5 mg PO BID 01/30/22 01/30/22 Unknown History AtorvaSTATin [Lipitor] 40 mg PO QHS 01/30/22 01/30/22 Unknown History Clopidogrel [Plavix] 75 mg PO QDAY 01/30/22 01/30/22 Unknown History Docusate Sodium [Colace] 100 mg PO BID 01/30/22 01/30/22 Unknown History FLUoxetine [PROzac] 20 mg PO QDAY 01/30/22 01/30/22 Unknown History Gabapentin 200 mg PO TID 01/30/22 01/30/22 Unknown History Insulin Degludec (Nf) [Tresiba 40 units SQ DAILY 01/30/22 01/30/22 Unknown History Flextouch U-100 (Nf)] Losartan [Cozaar] 50 mg PO QDAY 01/30/22 01/30/22 Unknown History Quetiapine Fumarate [SEROquel] 50 mg PO BID 01/30/22 01/30/22 Unknown History Tamsulosin [Flomax] 0.8 mg PO 01/30/22 01/30/22 Unknown History amLODIPine [Norvasc] 5 mg PO DAILY 01/30/22 01/30/22 Unknown History donepeziL [Aricept] 5 mg PO 01/30/22 01/30/22 Unknown History Active Meds: Active Medications Albuterol (Albuterol 2.5 Mg/3 Ml Nebu) 2.5 mg IH Q4HRT PRN PRN Reason: Shortness Of Breath Amlodipine Besylate (Amlodipine 5 Mg Tab) 5 mg PO DAILY [facility] Last Admin: 02/02/22 09:29 Dose: 5 mg Atorvastatin Calcium (Atorvastatin 40 Mg Tab) 40 mg PO QHS [facility] Last Admin: 02/01/22 21:05 Dose: 40 mg Clopidogrel Bisulfate (Clopidogrel 75 Mg Tab) 75 mg PO QDAY [facility] Last Admin: 02/02/22 09:30 Dose: 75 mg Dextrose (Dextrose 50% In Water (25gm) 50 Ml Syringe) 50 ml IV Q30MIN PRN; Protocol PRN Reason: Hypoglycemia Docusate Sodium (Docusate Sodium 100 Mg Cap) 100 mg PO BID [facility] Last Admin: 02/02/22 09:30 Dose: 100 mg Donepezil HCl (Donepezil 5 Mg Tab) 5 mg PO [facility] Last Admin: 02/01/22 21:05 Dose: 5 mg Fluoxetine HCl (Fluoxetine 10 Mg Tab) 30 mg PO QDAY [facility] Last Admin: 02/02/22 09:29 Dose: 30 mg Gabapentin (Gabapentin 100 Mg Cap) 200 mg PO TID [facility] Last Admin: 02/02/22 08:09 Dose: 200 mg Insulin Glargine (Insulin Glargine 100 Units/Ml) 40 units SUB-Q QHS [facility] Last Admin: 02/01/22 21:48 Dose: 40 units Insulin Human Lispro (Insulin Lispro 100 Unit/Ml) 0 unit SUB-Q ACHS [facility]; Protocol Last Admin: 02/02/22 12:01 Dose: 2 unit Losartan Potassium (Losartan 50 Mg Tab) 50 mg PO QDAY [facility] Last Admin: 02/02/22 09:30 Dose: 50 mg Quetiapine Fumarate (Quetiapine 25 Mg Tab) 50 mg PO BID [facility] Last Admin: 02/02/22 09:30 Dose: 50 mg Tamsulosin HCl (Tamsulosin 0.4 Mg Cap) 0.8 mg PO HS [facility] Last Admin: 02/01/22 21:05 Dose: 0.8 mg Results - Results Labs/Vitals: Laboratory Last Values WBC 5.7 K/mm3 (4.5-11.0) 01/30/22 09:02 RBC 4.87 M/mm3 (3.65-5.03) 01/30/22 09:02 Hgb 13.5 gm/dl (11.8-15.2) 01/30/22 09:02 Hct 41.0 % (35.5-45.6) 01/30/22 09:02 MCV 84 fl (84-94) 01/30/22 09:02 MCH 28 pg (28-32) 01/30/22 09:02 MCHC 33 % (32-34) 01/30/22 09:02 RDW 14.2 % (13.2-15.2) 01/30/22 09:02 Plt Count 116 K/mm3 (140-440) L 01/30/22 09:02 Lymph % (Auto) 26.8 % (13.4-35.0) 01/30/22 09:02 [place] % (Auto) 10.4 % (0.0-7.3) H 01/30/22 09:02 Eos % (Auto) 1.6 % (0.0-4.3) 01/30/22 09:02 Baso % (Auto) 0.5 % (0.0-1.8) 01/30/22 09:02 Lymph # (Auto) 1.5 K/mm3 (1.2-5.4) 01/30/22 09:02 [place] # (Auto) 0.6 K/mm3 (0.0-0.8) 01/30/22 09:02 Eos # (Auto) 0.1 K/mm3 (0.0-0.4) 01/30/22 09:02 Baso # (Auto) 0.0 K/mm3 (0.0-0.1) 01/30/22 09:02 Seg Neutrophils % 60.7 % (40.0-70.0) 01/30/22 09:02 Seg Neutrophils # 3.4 K/mm3 (1.8-7.7) 01/30/22 09:02 Sodium 136 mmol/L (137-145) L 01/30/22 09:02 Potassium 4.2 mmol/L (3.6-5.0) 01/30/22 09:02 Chloride 102.6 mmol/L (98-107) 01/30/22 09:02 Carbon Dioxide 22 mmol/L (22-30) 01/30/22 09:02 Anion Gap 16 mmol/L 01/30/22 09:02 BUN 16 mg/dL (9-20) 01/30/22 09:02 Creatinine 1.2 mg/dL (0.8-1.3) 01/30/22 09:02 Estimated GFR > 60 ml/min 01/30/22 09:02 BUN/Creatinine Ratio 13 % 01/30/22 09:02 Glucose 243 mg/dL (75-100) H 01/30/22 09:02 POC Glucose 160 mg/dL (70-105) H 02/02/22 06:08 Hemoglobin A1c 8.9 % (4-6) H 01/30/22 09:02 Calcium 9.4 mg/dL (8.4-10.2) 01/30/22 09:02 Total Bilirubin 0.50 mg/dL (0.1-1.2) 01/30/22 09:02 AST 17 units/L (5-40) 01/30/22 09:02 ALT 16 units/L (7-56) 01/30/22 09:02 Alkaline Phosphatase 89 units/L (35-129) 01/30/22 09:02 Total Protein 7.6 g/dL (6.3-8.2) 01/30/22 09: Albumin 4.1 g/dL (3.9-5) 01/30/22 09: Albumin/Globulin Ratio 1.2 % 01/30/22 09:02 Triglycerides 76 mg/dL (2-149) 01/30/22 09: Cholesterol 100 mg/dL (50-199) 01/30/22 09: LDL Cholesterol Direct 38 mg/dL (50-130) L 01/30/22 09:02 HDL Cholesterol 50 mg/dL (40-59) 01/30/22 09: Cholesterol/HDL Ratio 2.00 % 01/30/22 09: TSH 1.020 mlU/mL (0.270-4.200) 01/30/22 09:02 Hepatitis A IgM Ab Non-reactive (NonReactive) 01/30/22 09: Hep Bs Antigen Non-reactive (Negative) 01/30/22: Hep B Core IgM Ab Non-reactive (NonReactive) 01/30/22 09: Hepatitis C Antibody Non-reactive (NonReactive) 01/30/22 09:02 Last Vital Signs Temp 98.2 F 02/01/22 22:00 Pulse 101 H 02/02/22 09:30 Resp 18 02/01/22 22:00 BP 121/71 02/02/22 09:29 Pulse Ox 98 02/01/22 22:00
[2022-02-02] MEDS: TAMSULOSIN 0.4 MG CAP PO SCH (21:24)
[2022-02-02] MEDS: DONEPEZIL 5 MG TAB PO SCH (21:24)
[2022-02-02] MEDS: INSULIN GLARGINE 100 UNITS/ML SUB-Q SCH (22:29)
[2022-02-03] MEDS: INSULIN LISPRO 100 UNIT/ML SUB-Q SCH ×4 (07:35→23:00)
--- NOTE | 2022-02-03 10:06 | Progress Note ---
Subjective Date of service: 02/03/22 Principal diagnosis: Dementia w/behavioral disturbance Subjective Comment: The patient was seen today. He has poor insight. He is calm and cooperative. He is confused but answers some simple questions. He says "I have a hard time saying what I want to say." The patient says "I thought I was going home." He could not articulate how he was feeling. 02/02 The patient was seen today. He is a little less confused today. He says he's doing okay. The patient says "I thought I was going home today." He denies SI/HI or hallucinations. He says he slept okay. 02/01 The patient was seen today. He is confused and unable to engage in the evaluation. He is talking nonsensically. He says "I don't know who moved me here." He then says "it was supposed to been three numbers." 01/31 The patient was seen today. He is confused and has poor insight. He says "they woke up with me last night." He's unable to engage in the evaluation due to his insight. REVIEW OF SYSTEMS MENTAL STATUS EXAMINATION Diagnoses: Dementia with behavioral disturbances Treatment Plan: Patient admitted for inpatient psychiatric evaluation, medication adjustment and close monitoring The patient's behavior, mood, sleep and appetite will be closely monitored. Patient enrolled in individual and group therapeutic sessions and encouraged to attend. Patient provided with a safe and structured environment. Patient's physical health needs will be addressed by the Hospitalist. Hospitalist Consulted Labs including CBC, CMP, Lipid profile and Hemoglobin A1C levels ordered for baseline reference Social Assessment will be completed and the Sintering Plant Supervisor will work with patient and family to ensure a suitable and safe disposition Medication adjustment will be made as clinically indicated No changes made today. Usual Wellness Hindu/Preservation: - Start Trazodone 50 mg po QHS & 50 mg po QHS PRN between 10 PM & 2 AM for insomnia - Start Melatonin 5 mg po QHS to promote circadian rhythm The patient agreed on the treatment plan, understood the risk, benefit, al ternative treatment, potential consequence of no treatment, and gave informed consent. Estimated days: 7 Medications and Allergies Allergies Allergy/AdvReac Type Severity Reaction Status Date / Time No Known Allergies Allergy Verified 01/29/22 22:41 Home Medications Medication Instructions Recorded Confirmed Last Taken Type Albuterol Sulfate [Proair 90 mcg IH BID PRN 01/30/22 01/30/22 Unknown History Respiclick] Apixaban [Eliquis] 5 mg PO BID 01/30/22 01/30/22 Unknown History AtorvaSTATin [Lipitor] 40 mg PO QHS 01/30/22 01/30/22 Unknown History Clopidogrel [Plavix] 75 mg PO QDAY 01/30/22 01/30/22 Unknown History Docusate Sodium [Colace] 100 mg PO BID 01/30/22 01/30/22 Unknown History FLUoxetine [PROzac] 20 mg PO QDAY 01/30/22 01/30/22 Unknown History Gabapentin 200 mg PO TID 01/30/22 01/30/22 Unknown History Insulin Degludec (Nf) [Tresiba 40 units SQ DAILY 01/30/22 01/30/22 Unknown History Flextouch U-100 (Nf)] Losartan [Cozaar] 50 mg PO QDAY 01/30/22 01/30/22 Unknown History Quetiapine Fumarate [SEROquel] 50 mg PO BID 01/30/22 01/30/22 Unknown History Tamsulosin [Flomax] 0.8 mg PO HS 01/30/22 01/30/22 Unknown History amLODIPine [Norvasc] 5 mg PO DAILY 01/30/22 01/30/22 Unknown History donepeziL [Aricept] 5 mg PO HS 01/30/22 01/30/22 Unknown History Active Meds: Active Medications Albuterol (Albuterol 2.5 Mg/3 Ml Nebu) 2.5 mg IH Q4HRT PRN PRN Reason: Shortness Of Breath Amlodipine Besylate (Amlodipine 5 Mg Tab) 5 mg PO DAILY [facility] Last Admin: 02/02/22 09:29 Dose: 5 mg Atorvastatin Calcium (Atorvastatin 40 Mg Tab) 40 mg PO QHS [facility] Last Admin: 02/02/22 21:25 Dose: 40 mg Clopidogrel Bisulfate (Clopidogrel 75 Mg Tab) 75 mg PO QDAY [facility] Last Admin: 02/02/22 09:30 Dose: 75 mg Dextrose (Dextrose 50% In Water (25gm) 50 Ml Syringe) 50 ml IV Q30MIN PRN; Protocol PRN Reason: Hypoglycemia Docusate Sodium (Docusate Sodium 100 Mg Cap) 100 mg PO BID [facility] Last Admin: 02/02/22 21:25 Dose: 100 mg Donepezil HCl (Donepezil 5 Mg Tab) 5 mg PO HS [facility] Last Admin: 02/02/22 21:24 Dose: 5 mg Fluoxetine HCl (Fluoxetine 10 Mg Tab) 30 mg PO QDAY [facility] Last Admin: 02/02/22 09:29 Dose: 30 mg Gabapentin (Gabapentin 100 Mg Cap) 200 mg PO TID [facility] Last Admin: 02/02/22 20:27 Dose: 200 mg Insulin Glargine (Insulin Glargine 100 Units/Ml) [facility] Admin: 02/02/22 22:29 Dose: 40 units Insulin Human Lispro (Insulin Lispro 100 Unit/Ml) 0 unit SUB-Q ACHS [facility]; Protocol Last Admin: 02/03/22 07:35 Dose: Not Given Losartan Potassium (Losartan 50 Mg Tab) 50 mg PO QDAY [facility] Last Admin: 02/02/22 09:30 Dose: 50 mg Quetiapine Fumarate (Quetiapine 25 Mg Tab) 50 mg PO BID [facility] Last Admin: 02/02/22 21:25 Dose: 50 mg Tamsulosin HCl (Tamsulosin 0.4 Mg Cap) 0.8 mg PO HS [facility] Last Admin: 02/02/22 21:24 Dose: 0.8 mg Results - Results Labs/Vitals: Laboratory Last Values WBC 5.7 K/mm3 (4.5-11.0) 01/30/22 09:02 RBC 4.87 M/mm3 (3.65-5.03) 01/30/22 09:02 Hgb 13.5 gm/dl (11.8-15.2) 01/30/22 09:02 Hct 41.0 % (35.5-45.6) 01/30/22 09:02 MCV 84 fl (84-94) 01/30/22 09:02 MCH 28 pg (28-32) 01/30/22 09:02 MCHC 33 % (32-34) 01/30/22 09:02 RDW 14.2 % (13.2-15.2) 01/30/22 09:02 Plt Count 116 K/mm3 (140-440) L 01/30/22 09:02 Lymph % (Auto) 26.8 % (13.4-35.0) 01/30/22 09:02 [place] % (Auto) 10.4 % (0.0-7.3) H 01/30/22 09:02 Eos % (Auto) 1.6 % (0.0-4.3) 01/30/22 09:02 Baso % (Auto) 0.5 % (0.0-1.8) 01/30/22 09:02 Lymph # (Auto) 1.5 K/mm3 (1.2-5.4) 01/30/22 09:02 [place] # (Auto) 0.6 K/mm3 (0.0-0.8) 01/30/22 09:02 Eos # (Auto) 0.1 K/mm3 (0.0-0.4) 01/30/22 09:02 Baso # (Auto) 0.0 K/mm3 (0.0-0.1) 01/30/22 09:02 Seg Neutrophils % 60.7 % (40.0-70.0) 01/30/22 09:02 Seg Neutrophils # 3.4 K/mm3 (1.8-7.7) 01/30/22 09:02 Sodium 136 mmol/L (137-145) L 01/30/22 09:02 Potassium 4.2 mmol/L (3.6-5.0) 01/30/22 09:02 Chloride 102.6 mmol/L (98-107) 01/30/22 09:02 Carbon Dioxide 22 mmol/L (22-30) 01/30/22 09:02 Anion Gap 16 mmol/L 01/30/22 09:02 BUN 16 mg/dL (9-20) 01/30/22 09:02 Creatinine 1.2 mg/dL (0.8-1.3) 01/30/22 09:02 Estimated GFR > 60 ml/min 01/30/22 09:02 BUN/Creatinine Ratio 13 % 01/30/22 09:02 Glucose 243 mg/dL (75-100) H 01/30/22 09:02 POC Glucose 134 mg/dL (70-105) H 02/03/22 07:12 Hemoglobin A1c 8.9 % (4-6) H 01/30/22 09:02 Calcium 9.4 mg/dL (8.4-10.2) 01/30/22 09:02 Total Bilirubin 0.50 mg/dL (0.1-1.2) 01/30/22 09:02 AST 17 units/L (5-40) 01/30/22 09:02 ALT 16 units/L (7-56) 01/30/22 09:02 Alkaline Phosphatase 89 units/L (35-129) 01/30/22 09:02 Total Protein 7.6 g/dL (6.3-8.2) 01/30/22 09:02 Albumin 4.1 g/dL (3.9-5) 01/30/22 09:02 Albumin/Globulin Ratio 1.2 % 01/30/22 09:02 Triglycerides 76 mg/dL (2-149) 01/30/22 09:02 Cholesterol 100 mg/dL (50-199) 01/30/22 09:02 LDL Cholesterol Direct 38 mg/dL (50-130) L 01/30/22 09:02 HDL Cholesterol 50 mg/dL (40-59) 01/30/22 09:02 Cholesterol/HDL Ratio 2.00 % 01/30/22 09:02 TSH 1.020 mlU/mL (0.270-4.200) 01/30/22 09:02 Hepatitis A IgM Ab Non-reactive (NonReactive) 01/30/22 09:02 Hep Bs Antigen Non-reactive (Negative) 01/30/22 09: Hep B Core IgM Ab Non-reactive (NonReactive) 01/30/22 09:02 Hepatitis C Antibody Non-reactive (NonReactive) 01/30/22 09:02 Last Vital Signs Temp 97.5 F L 02/02/22: Pulse 82 02/02/22: Resp 18 02/02/22: BP 155/84 02/02/22: Pulse Ox 97 02/02/22 20:22
[2022-02-03] MEDS: GABAPENTIN 100 MG CAP PO SCH ×3 (10:47→22:13)
[2022-02-03] MEDS: FLUoxetine 10 MG TAB PO SCH (10:47)
[2022-02-03] MEDS: QUEtiapine 25 MG TAB PO SCH ×2 (10:47→22:12)
[2022-02-03] MEDS: DOCUSATE SODIUM 100 MG CAP PO SCH ×2 (10:47→22:13)
[2022-02-03] MEDS: CLOPIDOGREL 75 MG TAB PO SCH (10:48)
[2022-02-03] MEDS: amLODIPine 5 MG TAB PO SCH (10:48)
[2022-02-03] MEDS: LOSARTAN 50 MG TAB PO SCH (10:48)
--- NOTE | 2022-02-03 14:49 | Progress Note ---
Assessment and Plan - Patient Problems (1) Vascular dementia with behavioral disturbance Current Visit: Yes Status: Acute Plan to address problem: Verbal prompting, verbal redirection, benzodiazepine therapy as clinically indicated. (2) Cerebral atherosclerosis Current Visit: Yes Status: Acute Plan to address problem: Antiplatelet therapy as clinically indicated, supportive care. (3) Hypertension Current Visit: Yes Status: Acute Qualifiers: Hypertension type: primary hypertension Qualified Code(s): I10 - Essential (primary) hypertension Plan to address problem: Monitor blood pressure every shift, continue medical management. (4) Diabetes Current Visit: Yes Status: Acute Plan to address problem: Consistent carbohydrate diet, Accu-Chek, insulin protocol, hypoglycemia protocol. (5) Advance care planning Current Visit: Yes Status: Acute Plan to address problem: Disease education done, care plan discussed, diagnoses discussed, prognosis discussed, +30 minutes. History Interval history: 76 YO Male Vascular Dementia with Behavioral Disturbance, Cerebral Athe rosclerosis, DM, HTN, Encephalopathy admitted to [facility] for psychiatric stabilization. Consult placed by Dr. Zhang for medical management. Patient seen and evaluated in the recreation room. Patient resting comfortably. No reported nursing events. Patient exhibits diminished cognition and aphasia. Patient remains at baseline level of cognition and function. Hospitalist Physical - Constitutional Vitals: Temp Pulse Resp BP Pulse Ox 97.5 F L 90 16 113/76 99 02/03/22 07:37 02/03/22 07:37 02/03/22 07:37 02/03/22 07:37 02/03/22 07:37 General appearance: Present: no acute distress - EENT Eyes: Present: PERRL ENT: hearing decreased - Neck Neck: Present: supple - Respiratory Respiratory effort: normal Respiratory: bilateral: diminished - Cardiovascular Rhythm: regular Heart Sounds: Present: S1 & S2 - Extremities Extremities: no ischemia Peripheral Pulses: within normal limits - Abdominal General gastrointestinal: soft, non-tender, non-distended - Integumentary Integumentary: Present: clear, dry - Psychiatric Psychiatric: cooperative - Neurologic Neurologic: CNII-XII intact Results - Labs CBC & Chem 7: 01/30/22 09:02 01/30/22 09:02 Labs: Laboratory Last Values WBC 5.7 K/mm3 (4.5-11.0) 01/30/22 09:02 RBC 4.87 M/mm3 (3.65-5.03) 01/30/22 09:02 Hgb 13.5 gm/dl (11.8-15.2) 01/30/22 09:02 Hct 41.0 % (35.5-45.6) 01/30/22 09:02 MCV 84 fl (84-94) 01/30/22 09:02 MCH 28 pg (28-32) 01/30/22 09:02 MCHC 33 % (32-34) 01/30/22 09:02 RDW 14.2 % (13.2-15.2) 01/30/22 09:02 Plt Count 116 K/mm3 (140-440) L 01/30/22 09:02 Lymph % (Auto) 26.8 % (13.4-35.0) 01/30/22 09:02 [place] % (Auto) 10.4 % (0.0-7.3) H 01/30/22 09:02 Eos % (Auto) 1.6 % (0.0-4.3) 01/30/22 09:02 Baso % (Auto) 0.5 % (0.0-1.8) 01/30/22 09:02 Lymph # (Auto) 1.5 K/mm3 (1.2-5.4) 01/30/22 09:02 [place] # (Auto) 0.6 K/mm3 (0.0-0.8) 01/30/22 09:02 Eos # (Auto) 0.1 K/mm3 (0.0-0.4) 01/30/22 09:02 Baso # (Auto) 0.0 K/mm3 (0.0-0.1) 01/30/22 09:02 Seg Neutrophils % 60.7 % (40.0-70.0) 01/30/22 09:02 Seg Neutrophils # 3.4 K/mm3 (1.8-7.7) 01/30/22 09:02 Sodium 136 mmol/L (137-145) L 01/30/22 09:02 Potassium 4.2 mmol/L (3.6-5.0) 01/30/22 09:02 Chloride 102.6 mmol/L (98-107) 01/30/22 09:02 Carbon Dioxide 22 mmol/L (22-30) 01/30/22 09:02 Anion Gap 16 mmol/L 01/30/22 09:02 BUN 16 mg/dL (9-20) 01/30/22 09:02 Creatinine 1.2 mg/dL (0.8-1.3) 01/30/22 09:02 Estimated GFR > 60 ml/min 01/30/22 09:02 BUN/Creatinine Ratio 13 % 01/30/22 09:02 Glucose 243 mg/dL (75-100) H 01/30/22 09:02 POC Glucose 218 mg/dL (70-105) H 02/03/22 11:48 Hemoglobin A1c 8.9 % (4-6) H 01/30/22 09:02 Calcium 9.4 mg/dL (8.4-10.2) 01/30/22 09:02 Total Bilirubin 0.50 mg/dL (0.1-1.2) 01/30/22 09:02 AST 17 units/L (5-40) 01/30/22 09:02 ALT 16 units/L (7-56) 01/30/22 09:02 Alkaline Phosphatase 89 units/L (35-129) 01/30/22 09:02 Total Protein 7.6 g/dL (6.3-8.2) 01/30/22 09:02 Albumin 4.1 g/dL (3.9-5) 01/30/22 09:02 Albumin/Globulin Ratio 1.2 % 01/30/22 09:02 Triglycerides 76 mg/dL (2-149) 01/30/22 09:02 Cholesterol 100 mg/dL (50-199) 01/30/22 09:02 LDL Cholesterol Direct 38 mg/dL (50-130) L 01/30/22 09:02 HDL Cholesterol 50 mg/dL (40-59) 01/30/22 09:02 Cholesterol/HDL Ratio 2.00 % 01/30/22 09:02 TSH 1.020 mlU/mL (0.270-4.200) 01/30/22 09:02 Hepatitis A IgM Ab Non-reactive (NonReactive) 01/30/22: Hep Bs Antigen Non-reactive (Negative) 01/30/22: Hep B Core IgM Ab Non-reactive (NonReactive) 01/30/22 09: Hepatitis C Antibody Non-reactive (NonReactive) 01/30/22 09:02 Manuel/IV: Voiding Method Toilet Active Medications - Current Medications Current Medications: Generic Name Dose Route Start Last Admin Trade Name Freq PRN Reason Stop Dose Admin Albuterol 2.5 mg 01/30/22 11:23 Albuterol 2.5 Mg/3 Ml Nebu IH Q4HRT PRN Shortness Of Breath Amlodipine Besylate 5 mg 01/30/22 12:00 02/03/22 10:48 Amlodipine 5 Mg Tab PO Not Given DAILY TIFF[facility] Atorvastatin Calcium 40 mg 01/30/22 22:00 02/02/22 21:25 Atorvastatin 40 Mg Tab PO 40 mg QHS TIFFANIE Administration Clopidogrel Bisulfate 75 mg 01/30/22 12:00 02/03/22 10:48 Clopidogrel 75 Mg Tab PO 75 mg QDAY TIFFANIE Administration Dextrose 50 ml 01/30/22 15:15 Dextrose 50% In Water (25gm) 50 Ml Syringe IV Q30MIN PRN Hypoglycemia Protocol Docusate Sodium 100 mg 01/30/22 12:00 02/03/22 10:47 Docusate Sodium 100 Mg Cap PO 100 mg BID TIFFANIE Administration Donepezil HCl 5 mg 01/30/22 22:00 02/02/22 21:24 Donepezil 5 Mg Tab PO 5 mg HS TIFF[facility]IE Administration Fluoxetine HCl 30 mg 01/31/22 10:00 02/03/22 10:47 Fluoxetine 10 Mg Tab PO 30 mg QDAY TIFF[facility]IE Administration Gabapentin 200 mg 01/30/22 14:00 02/03/22 14:27 Gabapentin 100 Mg Cap PO 200 mg TID TIFFANIE Administration Insulin Glargine 40 units 01/30/22 22:00 02/02/22 22:29 Insulin Glargine 100 Units/Ml SUB-Q 40 units QHS [facility]FF[facility]IE Administration Insulin Human Lispro 0 unit 01/30/22 16:30 02/03/22 11:57 Insulin Lispro 100 Unit/Ml SUB-Q 3 unit ACHS TIFF[facility]IE Administration Protocol Losartan Potassium 50 mg 01/30/22 12:00 02/03/22 10:48 Losartan 50 Mg Tab PO Not Given QDAY TIFFANIE Quetiapine Fumarate 50 mg 01/30/22 22:00 02/03/22 10:47 Quetiapine 25 Mg Tab PO 50 mg BID [facility] Administration Tamsulosin HCl 0.8 mg 01/30/22 22:00 02/02/22 21:24 Tamsulosin 0.4 Mg Cap PO 0.8 mg HS TIFFANIE Administration
[2022-02-03] MEDS: DONEPEZIL 5 MG TAB PO SCH (22:13)
[2022-02-03] MEDS: TAMSULOSIN 0.4 MG CAP PO SCH (22:13)
[2022-02-03] MEDS: INSULIN GLARGINE 100 UNITS/ML SUB-Q SCH (23:01)
[2022-02-04] MEDS: GABAPENTIN 100 MG CAP PO SCH ×3 (08:30→21:23)
[2022-02-04] MEDS: INSULIN LISPRO 100 UNIT/ML SUB-Q SCH ×4 (09:42→21:29)
--- NOTE | 2022-02-04 11:07 | Progress Note ---
Subjective Date of service: 02/04/22 Principal diagnosis: Dementia w/behavioral disturbance Subjective Comment: The patient was seen today. He is calm and cooperative. It's difficult for him to articulate his thoughts. He did say he's feels okay and slept fine. 02/03 The patient was seen today. He has poor insight. He is calm and cooperative. He is confused but answers some simple questions. He says "I have a hard time saying what I want to say." The patient says "I thought I was going home." He could not articulate how he was feeling. 02/02 The patient was seen today. He is a little less confused today. He says he's doing okay. The patient says "I thought I was going home today." He denies SI/HI or hallucinations. He says he slept okay. 02/01 The patient was seen today. He is confused and unable to engage in the evaluation. He is talking nonsensically. He says "I don't know who moved me here." He then says "it was supposed to been three numbers." 01/31 The patient was seen today. He is confused and has poor insight. He says "they woke up with me last night." He's unable to engage in the evaluation due to his insight. REVIEW OF SYSTEMS MENTAL STATUS EXAMINATION Diagnoses: Dementia with behavioral disturbances Treatment Plan: Patient admitted for inpatient psychiatric evaluation, medication adjustment and close monitoring The patient's behavior, mood, sleep and appetite will be closely monitored. Patient enrolled in individual and group therapeutic sessions and encouraged to attend. Patient provided with a safe and structured environment. Patient's physical health needs will be addressed by the Hospitalist. Hospitalist Consulted Labs including CBC, CMP, Lipid profile and Hemoglobin A1C levels ordered for baseline reference Social Assessment will be completed and the Paper Final Inspector will work with patient and family to ensure a suitable and safe disposition Medication adjustment will be made as clinically indicated No changes made today. Usual Wellness Evangelical/Preservation: - Start Trazodone 50 mg po QHS & 50 mg po QHS PRN between 10 PM & 2 AM for insomnia - Start Melatonin 5 mg po QHS to promote circadian rhythm The patient agreed on the treatment plan, understood the risk, benefit, alternative treatment, potential consequence of no treatment, and gave informed consent. Estimated days: 7 Medications and Allergies Allergies Allergy/AdvReac Type Severity Reaction Status Date / Time No Known Allergies Allergy Verified 01/29/22 22:41 Home Medications Medication Instructions Recorded Confirmed Last Taken Type Albuterol Sulfate [Proair 90 mcg IH BID PRN 01/30/22 01/30/22 Unknown History Respiclick] Apixaban [Eliquis] 5 mg PO BID 01/30/22 01/30/22 Unknown History AtorvaSTATin [Lipitor] 40 mg PO QHS 01/30/22 01/30/22 Unknown History Clopidogrel [Plavix] 75 mg PO QDAY 01/30/22 01/30/22 Unknown History Docusate Sodium [Colace] 100 mg PO BID 01/30/22 01/30/22 Unknown History FLUoxetine [PROzac] 20 mg PO QDAY 01/30/22 01/30/22 Unknown History Gabapentin 200 mg PO TID 01/30/22 01/30/22 Unknown History Insulin Degludec (Nf) [Tresiba 40 units SQ DAILY 01/30/22 01/30/22 Unknown History Flextouch U-100 (Nf)] Losartan [Cozaar] 50 mg PO QDAY 01/30/22 01/30/22 Unknown History Quetiapine Fumarate [SEROquel] 50 mg PO BID 01/30/22 01/30/22 Unknown History Tamsulosin [Flomax] 0.8 mg PO HS 01/30/22 01/30/22 Unknown History amLODIPine [Norvasc] 5 mg PO DAILY 01/30/22 01/30/22 Unknown History donepeziL [Aricept] 5 mg PO HS 01/30/22 01/30/22 Unknown History Active Meds: Active Medications Albuterol (Albuterol 2.5 Mg/3 Ml Nebu) 2.5 mg IH Q4HRT PRN PRN Reason: Shortness Of Breath Amlodipine Besylate (Amlodipine 5 Mg Tab) 5 mg PO DAILY [facility] Last Admin: 02/03/22 10:48 Dose: Not Given Atorvastatin Calcium (Atorvastatin 40 Mg Tab) 40 mg PO QHS [facility] Last Admin: 02/03/22 22:13 Dose: 40 mg Clopidogrel Bisulfate (Clopidogrel 75 Mg Tab) 75 mg PO QDAY [facility] Last Admin: 02/03/22 10:48 Dose: 75 mg Dextrose (Dextrose 50% In Water (25gm) 50 Ml Syringe) 50 ml IV Q30MIN PRN; Protocol PRN Reason: Hypoglycemia Docusate Sodium (Docusate Sodium 100 Mg Cap) 100 mg PO BID [facility] Last Admin: 02/03/22 22:13 Dose: 100 mg Donepezil HCl (Donepezil 5 Mg Tab) 5 mg PO HS [facility] Last Admin: 02/03/22 22:13 Dose: 5 mg Fluoxetine HCl (Fluoxetine 10 Mg Tab) 30 mg PO QDAY [facility] Last Admin: 02/03/22 10:47 Dose: 30 mg Gabapentin (Gabapentin 100 Mg Cap) 200 mg PO TID [facility] Last Admin: 02/03/22 22:13 Dose: 200 mg Insulin Glargine (Insulin Glargine 100 Units/Ml) 40 units SUB-Q QHS [facility] Last Admin: 02/03/22 23:01 Dose: 40 units Insulin Human Lispro (Insulin Lispro 100 Unit/Ml) 0 unit SUB-Q ACHS [facility]; Protocol Last Admin: 02/04/22 09:42 Dose: Not Given Losartan Potassium (Losartan 50 Mg Tab) 50 mg PO QDAY [facility] Last Admin: 02/03/22 10:48 Dose: Not Given Quetiapine Fumarate (Quetiapine 25 Mg Tab) 50 mg PO BID [facility] Last Admin: 02/03/22 22:12 Dose: 50 mg Tamsulosin HCl (Tamsulosin 0.4 Mg Cap) 0.8 mg PO [facility] Last Admin: 02/03/22 22:13 Dose: 0.8 mg Results - Results Labs/Vitals: Laboratory Last Values WBC 5.7 K/mm3 (4.5-11.0) 01/30/22 09:02 RBC 4.87 M/mm3 (3.65-5.03) 01/30/22 09:02 Hgb 13.5 gm/dl (11.8-15.2) 01/30/22 09:02 Hct 41.0 % (35.5-45.6) 01/30/22 09:02 MCV 84 fl (84-94) 01/30/22 09:02 MCH 28 pg (28-32) 01/30/22 09:02 MCHC 33 % (32-34) 01/30/22 09:02 RDW 14.2 % (13.2-15.2) 01/30/22 09:02 Plt Count 116 K/mm3 (140-440) L 01/30/22 09:02 Lymph % (Auto) 26.8 % (13.4-35.0) 01/30/22 09:02 [place] % (Auto) 10.4 % (0.0-7.3) H 01/30/22 09:02 Eos % (Auto) 1.6 % (0.0-4.3) 01/30/22 09:02 Baso % (Auto) 0.5 % (0.0-1.8) 01/30/22 09:02 Lymph # (Auto) 1.5 K/mm3 (1.2-5.4) 01/30/22 09:02 [place] # (Auto) 0.6 K/mm3 (0.0-0.8) 01/30/22 09:02 Eos # (Auto) 0.1 K/mm3 (0.0-0.4) 01/30/22 09:02 Baso # (Auto) 0.0 K/mm3 (0.0-0.1) 01/30/22 09:02 Seg Neutrophils % 60.7 % (40.0-70.0) 01/30/22 09:02 Seg Neutrophils # 3.4 K/mm3 (1.8-7.7) 01/30/22 09:02 Sodium 136 mmol/L (137-145) L 01/30/22 09:02 Potassium 4.2 mmol/L (3.6-5.0) 01/30/22 09:02 Chloride 102.6 mmol/L (98-107) 01/30/22 09:02 Carbon Dioxide 22 mmol/L (22-30) 01/30/22 09:02 Anion Gap 16 mmol/L 01/30/22 09:02 BUN 16 mg/dL (9-20) 01/30/22 09:02 Creatinine 1.2 mg/dL (0.8-1.3) 01/30/22 09:02 Estimated GFR > 60 ml/min 01/30/22 09:02 BUN/Creatinine Ratio 13 % 01/30/22 09:02 Glucose 243 mg/dL (75-100) H 01/30/22 09:02 POC Glucose 180 mg/dL (70-105) H 02/04/22 07:44 Hemoglobin A1c 8.9 % (4-6) H 01/30/22 09:02 Calcium 9.4 mg/dL (8.4-10.2) 01/30/22 09:02 Total Bilirubin 0.50 mg/dL (0.1-1.2) 01/30/22 09:02 AST 17 units/L (5-40) 01/30/22 09:02 ALT 16 units/L (7-56) 01/30/22 09:02 Alkaline Phosphatase 89 units/L (35-129) 01/30/22 09:02 Total Protein 7.6 g/dL (6.3-8.2) 01/30/22 09:02 Albumin 4.1 g/dL (3.9-5) 01/30/22 09: Albumin/Globulin Ratio 1.2 % 01/30/22 09:02 Triglycerides 76 mg/dL (2-149) 01/30/22 09:02 Cholesterol 100 mg/dL (50-199) 01/30/22 09:02 LDL Cholesterol Direct 38 mg/dL (50-130) L 01/30/22 09:02 HDL Cholesterol 50 mg/dL (40-59) 01/30/22 09:02 Cholesterol/HDL Ratio 2.00 % 01/30/22 09:02 TSH 1.020 mlU/mL (0.270-4.200) 01/30/22 09:02 Hepatitis A IgM Ab Non-reactive (NonReactive) 01/30/22 09:02 Hep Bs Antigen Non-reactive (Negative) 01/30/22 09: Hep B Core IgM Ab Non-reactive (NonReactive) 01/30/22 09:02 Hepatitis C Antibody Non-reactive (NonReactive) 01/30/22 09:02 Last Vital Signs Temp 98.3 F 02/03/22 20:00 Pulse 76 02/03/22 20:00 Resp 18 02/03/22 20:00 BP 151/84 02/03/22 20:00 Pulse Ox 98 02/03/22 20:00
--- NOTE | 2022-02-04 11:36 | Event Note ---
Date: 02/04/22 I attempted to speak to the pateint's daughter, Filippo Wisdom ([phone]) to update her on the patient's progress, treatment plan and discharge plan. I got a message saying "call rejected."
[2022-02-04] MEDS: amLODIPine 5 MG TAB PO SCH (12:48)
[2022-02-04] MEDS: DOCUSATE SODIUM 100 MG CAP PO SCH ×2 (12:48→21:25)
[2022-02-04] MEDS: FLUoxetine 10 MG TAB PO SCH (12:48)
[2022-02-04] MEDS: CLOPIDOGREL 75 MG TAB PO SCH (12:48)
[2022-02-04] MEDS: QUEtiapine 25 MG TAB PO SCH ×2 (12:48→21:23)
[2022-02-04] MEDS: LOSARTAN 50 MG TAB PO SCH (12:50)
--- NOTE | 2022-02-04 19:54 | Progress Note ---
Assessment and Plan - Patient Problems (1) Vascular dementia with behavioral disturbance Current Visit: Yes Status: Acute Plan to address problem: Verbal prompting, verbal redirection, benzodiazepine therapy as clinically indicated. (2) Cerebral atherosclerosis Current Visit: Yes Status: Acute Plan to address problem: Antiplatelet therapy as clinically indicated, supportive care. (3) Hypertension Current Visit: Yes Status: Acute Qualifiers: Hypertension type: primary hypertension Qualified Code(s): I10 - Essential (primary) hypertension Plan to address problem: Monitor blood pressure every shift, continue medical management. (4) Diabetes Current Visit: Yes Status: Acute Plan to address problem: Consistent carbohydrate diet, Accu-Chek, insulin protocol, hypoglycemia protocol. (5) Advance care planning Current Visit: Yes Status: Acute Plan to address problem: Disease education done, care plan discussed, diagnoses discussed, prognosis discussed, +30 minutes. History Interval history: 76 YO Male Vascular Dementia with Behavioral Disturbance, Cerebral Athe rosclerosis, DM, HTN, Encephalopathy admitted to [facility] for psychiatric stabilization. Consult placed by Dr. Zhang for medical management. Patient seen and evaluated in the recreation room. Patient resting comfortably. No reported nursing events. Patient exhibits diminished cognition and aphasia. Patient remains at baseline level of cognition and function. Hospitalist Physical - Constitutional Vitals: Temp Pulse Resp BP Pulse Ox 98.4 F 90 16 159/85 99 02/04/22 11:25 02/04/22 11:25 02/04/22 11:25 02/04/22 11:25 02/04/22 11:25 General appearance: Present: no acute distress - EENT Eyes: Present: PERRL ENT: hearing decreased - Neck Neck: Present: supple - Respiratory Respiratory effort: normal Respiratory: bilateral: diminished - Cardiovascular Rhythm: regular Heart Sounds: Present: S1 & S2 - Extremities Extremities: no ischemia Peripheral Pulses: within normal limits - Abdominal General gastrointestinal: soft, non-tender, non-distended - Integumentary Integumentary: Present: clear, dry - Psychiatric Psychiatric: cooperative - Neurologic Neurologic: CNII-XII intact Results - Labs CBC & Chem 7: 01/30/22 09:02 01/30/22 09:02 Labs: Laboratory Last Values WBC 5.7 K/mm3 (4.5-11.0) 01/30/22 09:02 RBC 4.87 M/mm3 (3.65-5.03) 01/30/22 09:02 Hgb 13.5 gm/dl (11.8-15.2) 01/30/22 09:02 Hct 41.0 % (35.5-45.6) 01/30/22 09:02 MCV 84 fl (84-94) 01/30/22 09:02 MCH 28 pg (28-32) 01/30/22 09:02 MCHC 33 % (32-34) 01/30/22 09:02 RDW 14.2 % (13.2-15.2) 01/30/22 09:02 Plt Count 116 K/mm3 (140-440) L 01/30/22 09:02 Lymph % (Auto) 26.8 % (13.4-35.0) 01/30/22 09:02 [place] % (Auto) 10.4 % (0.0-7.3) H 01/30/22 09:02 Eos % (Auto) 1.6 % (0.0-4.3) 01/30/22 09:02 Baso % (Auto) 0.5 % (0.0-1.8) 01/30/22 09:02 Lymph # (Auto) 1.5 K/mm3 (1.2-5.4) 01/30/22 09:02 [place] # (Auto) 0.6 K/mm3 (0.0-0.8) 01/30/22 09:02 Eos # (Auto) 0.1 K/mm3 (0.0-0.4) 01/30/22 09:02 Baso # (Auto) 0.0 K/mm3 (0.0-0.1) 01/30/22 09:02 Seg Neutrophils % 60.7 % (40.0-70.0) 01/30/22 09:02 Seg Neutrophils # 3.4 K/mm3 (1.8-7.7) 01/30/22 09:02 Sodium 136 mmol/L (137-145) L 01/30/22 09:02 Potassium 4.2 mmol/L (3.6-5.0) 01/30/22 09:02 Chloride 102.6 mmol/L (98-107) 01/30/22 09:02 Carbon Dioxide 22 mmol/L (22-30) 01/30/22 09:02 Anion Gap 16 mmol/L 01/30/22 09:02 BUN 16 mg/dL (9-20) 01/30/22 09:02 Creatinine 1.2 mg/dL (0.8-1.3) 01/30/22 09:02 Estimated GFR > 60 ml/min 01/30/22 09:02 BUN/Creatinine Ratio 13 % 01/30/22 09:02 Glucose 243 mg/dL (75-100) H 01/30/22 09:02 POC Glucose 284 mg/dL (70-105) H 02/04/22 16:32 Hemoglobin A1c 8.9 % (4-6) H 01/30/22 09:02 Calcium 9.4 mg/dL (8.4-10.2) 01/30/22 09:02 Total Bilirubin 0.50 mg/dL (0.1-1.2) 01/30/22 09:02 AST 17 units/L (5-40) 01/30/22 09:02 ALT 16 units/L (7-56) 01/30/22 09:02 Alkaline Phosphatase 89 units/L (35-129) 01/30/22 09:02 Total Protein 7.6 g/dL (6.3-8.2) 01/30/22 09:02 Albumin 4.1 g/dL (3.9-5) 01/30/22 09:02 Albumin/Globulin Ratio 1.2 % 01/30/22 09:02 Triglycerides 76 mg/dL (2-149) 01/30/22 09:02 Cholesterol 100 mg/dL (50-199) 01/30/22 09:02 LDL Cholesterol Direct 38 mg/dL (50-130) L 01/30/22 09:02 HDL Cholesterol 50 mg/dL (40-59) 01/30/22 09:02 Cholesterol/HDL Ratio 2.00 % 01/30/22 09:02 TSH 1.020 mlU/mL (0.270-4.200) 01/30/22 09:02 Hepatitis A IgM Ab Non-reactive (NonReactive) 01/30/22 09: Hep Bs Antigen Non-reactive (Negative) 01/30/22: Hep B Core IgM Ab Non-reactive (NonReactive) 01/30/22 09: Hepatitis C Antibody Non-reactive (NonReactive) 05/20/22 09:02 Manuel/IV: Voiding Method Toilet Active Medications - Current Medications Current Medications: Generic Name Dose Route Start Last Admin Trade Name Freq PRN Reason Stop Dose Admin Albuterol 2.5 mg 01/30/22 11:23 Albuterol 2.5 Mg/3 Ml Nebu IH Q4HRT PRN Shortness Of Breath Amlodipine Besylate 5 mg 01/30/22 12:00 02/04/22 12:48 Amlodipine 5 Mg Tab PO 5 mg DAILY TIFFANIE Administration Atorvastatin Calcium 40 mg 01/30/22 22:00 02/03/22 22:13 Atorvastatin 40 Mg Tab PO 40 mg QHS TIFFANIE Administration Clopidogrel Bisulfate 75 mg 01/30/22 12:00 02/04/22 12:48 Clopidogrel 75 Mg Tab PO 75 mg QDAY TIFFANIE Administration Dextrose 50 ml 01/30/22 15:15 Dextrose 50% In Water (25gm) 50 Ml Syringe IV Q30MIN PRN Hypoglycemia Protocol Docusate Sodium 100 mg 01/30/22 12:00 02/04/22 12:48 Docusate Sodium 100 Mg Cap PO 100 mg BID TIFFANIE Administration Donepezil HCl 5 mg 01/30/22 22:00 02/03/22 22:13 Donepezil 5 Mg Tab PO 5 mg HS TIFFANIE Administration Fluoxetine HCl 30 mg 01/31/22 10:00 02/04/22 12:48 Fluoxetine 10 Mg Tab PO 30 mg QDAY TIFFANIE Administration Gabapentin 200 mg 01/30/22 14:00 02/04/22 13:24 Gabapentin 100 Mg Cap PO 200 mg TID TIFFANIE Administration Insulin Glargine 40 units 01/30/22 22:00 02/03/22 23:01 Insulin Glargine 100 Units/Ml SUB-Q 40 units QHS TIFFANIE Administration Insulin Human Lispro 0 unit 01/30/22 16:30 02/04/22 16:43 Insulin Lispro 100 Unit/Ml SUB-Q 4 unit ACHS TIFFANIE Administration Protocol Losartan Potassium 50 mg 01/30/22 12:00 02/04/22 12:50 Losartan 50 Mg Tab PO 50 mg QDAY TIFFANIE Administration Quetiapine Fumarate 50 mg 01/30/22 22:00 02/04/22 12:48 Quetiapine 25 Mg Tab PO 50 mg BID TIFFANIE Administration Tamsulosin HCl 0.8 mg 01/30/22 22:00 02/03/22 22:13 Tamsulosin 0.4 Mg Cap PO 0.8 mg HS TIFFANIE Administration
[2022-02-04] MEDS: TAMSULOSIN 0.4 MG CAP PO SCH (21:24)
[2022-02-04] MEDS: DONEPEZIL 5 MG TAB PO SCH (21:26)
[2022-02-04] MEDS: INSULIN GLARGINE 100 UNITS/ML SUB-Q SCH (21:27)
[2022-02-05] MEDS: INSULIN LISPRO 100 UNIT/ML SUB-Q SCH ×4 (07:58→22:11)
--- NOTE | 2022-02-05 08:27 | Progress Note ---
Subjective Date of service: 02/05/22 Principal diagnosis: Dementia w/behavioral disturbance Subjective Comment: The patient was seen today. He is sitting in the dayroom eating breakfast. He is calm and cooperative. The patient is confused, but pleasant. He says he slept good. The patient says "I'm hoping to go home" he then laughs. He denies SI/HI or hallucinations. 02/04 The patient was seen today. He is calm and cooperative. It's difficult for him to articulate his thoughts. He did say he's feels okay and slept fine. 02/03 The patient was seen today. He has poor insight. He is calm and cooperative. He is confused but answers some simple questions. He says "I have a hard time saying what I want to say." The patient says "I thought I was going home." He could not articulate how he was feeling. 02/02 The patient was seen today. He is a little less confused today. He says he's doing okay. The patient says "I thought I was going home today." He denies SI/HI or hallucinations. He says he slept okay. 02/01 The patient was seen today. He is confused and unable to engage in the evaluation. He is talking nonsensically. He says "I don't know who moved me here." He then says "it was supposed to been three numbers." 01/31 The patient was seen today. He is confused and has poor insight. He says "they woke up with me last night." He's unable to engage in the evaluation due to his insight. REVIEW OF SYSTEMS MENTAL STATUS EXAMINATION Diagnoses: Dementia with behavioral disturbances Treatment Plan: Patient admitted for inpatient psychiatric evaluation, medication adjustment and close monitoring The patient's behavior, mood, sleep and appetite will be closely monitored. Patient enrolled in individual and group therapeutic sessions and encouraged to attend. Patient provided with a safe and structured environment. Patient's physical health needs will be addressed by the Hospitalist. Hospitalist Consulted Labs including CBC, CMP, Lipid profile and Hemoglobin A1C levels ordered for baseline reference Social Assessment will be completed and the [facility] will work with patient and family to ensure a suitable and safe disposition Medication adjustment will be made as clinically indicated No changes made today. Usual Wellness [employer]/Preservation: - Start Trazodone 50 mg po QHS & 50 mg po QHS PRN between 10 PM & 2 AM for insomnia - Start Melatonin 5 mg po QHS to promote circadian rhythm The patient agreed on the treatment plan, understood the risk, benefit, alternative treatment, potential consequence of no treatment, and gave informed consent. Estimated days: 7 Medications and Allergies Allergies Allergy/AdvReac Type Severity Reaction Status Date / Time No Known Allergies Allergy Verified 01/29/22 22:41 Home Medications Medication Instructions Recorded Confirmed Last Taken Type Albuterol Sulfate [Proair 90 mcg IH BID PRN 01/30/22 01/30/22 Unknown History Respiclick] Apixaban [Eliquis] 5 mg PO BID 01/30/22 01/30/22 Unknown History AtorvaSTATin [Lipitor] 40 mg PO QHS 01/30/22 01/30/22 Unknown History Clopidogrel [Plavix] 75 mg PO QDAY 01/30/22 01/30/22 Unknown History Docusate Sodium [Colace] 100 mg PO BID 01/30/22 01/30/22 Unknown History FLUoxetine [PROzac] 20 mg PO QDAY 01/30/22 01/30/22 Unknown History Gabapentin 200 mg PO TID 01/30/22 01/30/22 Unknown History Insulin Degludec (Nf) [Tresiba 40 units SQ DAILY 01/30/22 01/30/22 Unknown History Flextouch U-100 (Nf)] Losartan [Cozaar] 50 mg PO QDAY 01/30/22 01/30/22 Unknown History Quetiapine Fumarate [SEROquel] 50 mg PO BID 01/30/22 01/30/22 Unknown History Tamsulosin [Flomax] 0.8 mg PO HS 01/30/22 01/30/22 Unknown History amLODIPine [Norvasc] 5 mg PO DAILY 01/30/22 01/30/22 Unknown History donepeziL [Aricept] 5 mg PO HS 01/30/22 01/30/22 Unknown History Active Meds: Active Medications Albuterol (Albuterol 2.5 Mg/3 Ml Nebu) 2.5 mg IH Q4HRT PRN PRN Reason: Shortness Of Breath Amlodipine Besylate (Amlodipine 5 Mg Tab) 5 mg PO DAILY TIFFANIE Last Admin: 02/04/22 12:48 Dose: 5 mg Atorvastatin Calcium (Atorvastatin 40 Mg Tab) 40 mg PO QHS REPLACED BY [facility] Last Admin: 02/04/22 21:24 Dose: 40 mg Clopidogrel Bisulfate (Clopidogrel 75 Mg Tab) 75 mg PO QDAY REPLACED BY [facility] Last Admin: 02/04/22 12:48 Dose: 75 mg Dextrose (Dextrose 50% In Water (25gm) 50 Ml Syringe) 50 ml IV Q30MIN PRN; Protocol PRN Reason: Hypoglycemia Docusate Sodium (Docusate Sodium 100 Mg Cap) 100 mg PO BID REPLACED BY [facility] Last Admin: 02/04/22 21:25 Dose: 100 mg Donepezil HCl (Donepezil 5 Mg Tab) 5 mg PO HS REPLACED BY [facility] Last Admin: 02/04/22 21:26 Dose: 5 mg Fluoxetine HCl (Fluoxetine 10 Mg Tab) 30 mg PO QDAY REPLACED BY [facility] Last Admin: 02/04/22 12:48 Dose: 30 mg Gabapentin (Gabapentin 100 Mg Cap) 200 mg PO TID REPLACED BY [facility] Last Admin: 02/04/22 21:23 Dose: 200 mg Insulin Glargine (Insulin Glargine 100 Units/Ml) 40 units SUB-Q QHS REPLACED BY [facility] Last Admin: 02/04/22 21:27 Dose: 40 units Insulin Human Lispro (Insulin Lispro 100 Unit/Ml) 0 unit SUB-Q [facility] REPLACED BY [facility]; Protocol Last Admin: 02/04/22 21:29 Dose: 4 unit Losartan Potassium (Losartan 50 Mg Tab) 50 mg PO QDAY REPLACED BY [facility] Last Admin: 02/04/22 12:50 Dose: 50 mg Quetiapine Fumarate (Quetiapine 25 Mg Tab) 50 mg PO BID REPLACED BY [facility] Last Admin: 02/04/22 21:23 Dose: 50 mg Tamsulosin HCl (Tamsulosin 0.4 Mg Cap) 0.8 mg PO [facility] Last Admin: 02/04/22 21:24 Dose: 0.8 mg Results - Results Labs/Vitals: Laboratory Last Values WBC 5.7 K/mm3 (4.5-11.0) 01/30/22 09:02 RBC 4.87 M/mm3 (3.65-5.03) 01/30/22 09:02 Hgb 13.5 gm/dl (11.8-15.2) 01/30/22 09:02 Hct 41.0 % (35.5-45.6) 01/30/22 09:02 MCV 84 fl (84-94) 01/30/22 09:02 MCH 28 pg (28-32) 01/30/22 09:02 MCHC 33 % (32-34) 01/30/22 09:02 RDW 14.2 % (13.2-15.2) 01/30/22 09:02 Plt Count 116 K/mm3 (140-440) L 01/30/22 09:02 Lymph % (Auto) 26.8 % (13.4-35.0) 01/30/22 09:02 [place] % (Auto) 10.4 % (0.0-7.3) H 01/30/22 09:02 Eos % (Auto) 1.6 % (0.0-4.3) 01/30/22 09:02 Baso % (Auto) 0.5 % (0.0-1.8) 01/30/22 09:02 Lymph # (Auto) 1.5 K/mm3 (1.2-5.4) 01/30/22 09:02 [place] # (Auto) 0.6 K/mm3 (0.0-0.8) 01/30/22 09:02 Eos # (Auto) 0.1 K/mm3 (0.0-0.4) 01/30/22 09:02 Baso # (Auto) 0.0 K/mm3 (0.0-0.1) 01/30/22 09:02 Seg Neutrophils % 60.7 % (40.0-70.0) 01/30/22 09:02 Seg Neutrophils # 3.4 K/mm3 (1.8-7.7) 01/30/22 09:02 Sodium 136 mmol/L (137-145) L 01/30/22 09:02 Potassium 4.2 mmol/L (3.6-5.0) 01/30/22 09:02 Chloride 102.6 mmol/L (98-107) 01/30/22 09:02 Carbon Dioxide 22 mmol/L (22-30) 01/30/22 09:02 Anion Gap 16 mmol/L 01/30/22 09:02 BUN 16 mg/dL (9-20) 01/30/22 09:02 Creatinine 1.2 mg/dL (0.8-1.3) 01/30/22 09:02 Estimated GFR > 60 ml/min 01/30/22 09:02 BUN/Creatinine Ratio 13 % 01/30/22 09:02 Glucose 243 mg/dL (75-100) H 01/30/22 09:02 POC Glucose 311 mg/dL (70-105) H 02/05/22 05:33 Hemoglobin A1c 8.9 % (4-6) H 01/30/22 09:02 Calcium 9.4 mg/dL (8.4-10.2) 01/30/22 09:02 Total Bilirubin 0.50 mg/dL (0.1-1.2) 01/30/22 09:02 AST 17 units/L (5-40) 01/30/22 09:02 ALT 16 units/L (7-56) 01/30/22 09:02 Alkaline Phosphatase 89 units/L (35-129) 01/30/22 09:02 Total Protein 7.6 g/dL (6.3-8.2) 01/30/22 09:02 Albumin 4.1 g/dL (3.9-5) 01/30/22 09:02 Albumin/Globulin Ratio 1.2 % 01/30/22 09:02 Triglycerides 76 mg/dL (2-149) 01/30/22 09:02 Cholesterol 100 mg/dL (50-199) 01/30/22 09:02 LDL Cholesterol Direct 38 mg/dL (50-130) L 01/30/22 09:02 HDL Cholesterol 50 mg/dL (40-59) 01/30/22 09:02 Cholesterol/HDL Ratio 2.00 % 01/30/22 09:02 TSH 1.020 mlU/mL (0.270-4.200) 01/30/22 09:02 Hepatitis A IgM Ab Non-reactive (NonReactive) 01/30/22 09:02 Hep Bs Antigen Non-reactive (Negative) 01/30/22 09:02 Hep B Core IgM Ab Non-reactive (NonReactive) 01/30/22 09:02 Hepatitis C Antibody Non-reactive (NonReactive) 01/30/22 09:02 Last Vital Signs Temp 98.4 F 02/04/22 11:25 Pulse 90 02/04/22 11:25 Resp 16 02/04/22 11:25 BP 159/85 02/04/22 11:25 Pulse Ox 99 02/04/22 11:25
[2022-02-05] MEDS: FLUoxetine 10 MG TAB PO SCH (10:19)
[2022-02-05] MEDS: CLOPIDOGREL 75 MG TAB PO SCH (10:19)
[2022-02-05] MEDS: QUEtiapine 25 MG TAB PO SCH ×2 (10:19→21:23)
[2022-02-05] MEDS: GABAPENTIN 100 MG CAP PO SCH ×3 (10:19→21:22)
[2022-02-05] MEDS: DOCUSATE SODIUM 100 MG CAP PO SCH ×2 (10:19→21:23)
[2022-02-05] MEDS: amLODIPine 5 MG TAB PO SCH (10:22)
[2022-02-05] MEDS: LOSARTAN 50 MG TAB PO SCH (10:22)
--- NOTE | 2022-02-05 18:39 | Progress Note ---
Assessment and Plan - Patient Problems (1) Vascular dementia with behavioral disturbance Current Visit: Yes Status: Acute Plan to address problem: Verbal prompting, verbal redirection, benzodiazepine therapy as clinically indicated. (2) Cerebral atherosclerosis Current Visit: Yes Status: Acute Plan to address problem: Antiplatelet therapy as clinically indicated, supportive care. (3) Hypertension Current Visit: Yes Status: Acute Qualifiers: Hypertension type: primary hypertension Qualified Code(s): I10 - Essential (primary) hypertension Plan to address problem: Monitor blood pressure every shift, continue medical management. (4) Diabetes Current Visit: Yes Status: Acute Plan to address problem: Consistent carbohydrate diet, Accu-Chek, insulin protocol, hypoglycemia protocol. (5) Advance care planning Current Visit: Yes Status: Acute Plan to address problem: Disease education done, care plan discussed, diagnoses discussed, prognosis discussed, +30 minutes. History Interval history: 76 YO Male Vascular Dementia with Behavioral Disturbance, Cerebral Athe rosclerosis, DM, HTN, Encephalopathy admitted to [facility] for psychiatric stabilization. Consult placed by Dr. Zhang for medical management. Patient seen and evaluated in the recreation room. Patient resting comfortably. No reported nursing events. Patient exhibits diminished cognition and aphasia. Patient remains at baseline level of cognition and function. Hospitalist Physical - Constitutional Vitals: Temp Pulse Resp BP Pulse Ox 98.4 F 90 16 159/85 99 02/04/22 11:25 02/04/22 11:25 02/04/22 11:25 02/04/22 11:25 02/04/22 11:25 General appearance: Present: no acute distress - EENT Eyes: Present: PERRL ENT: hearing intact - Neck Neck: Present: supple - Respiratory Respiratory effort: normal Respiratory: bilateral: diminished - Cardiovascular Rhythm: regular Heart Sounds: Present: S1 & S2 - Extremities Extremities: no ischemia Peripheral Pulses: within normal limits - Abdominal General gastrointestinal: soft, non-tender, non-distended - Integumentary Integumentary: Present: clear, dry - Psychiatric Psychiatric: cooperative - Neurologic Neurologic: CNII-XII intact Results - Labs CBC & Chem 7: 01/30/22 09:02 01/30/22 09:02 Labs: Laboratory Last Values WBC 5.7 K/mm3 (4.5-11.0) 01/30/22 09:02 RBC 4.87 M/mm3 (3.65-5.03) 01/30/22 09:02 Hgb 13.5 gm/dl (11.8-15.2) 01/30/22 09:02 Hct 41.0 % (35.5-45.6) 01/30/22 09:02 MCV 84 fl (84-94) 01/30/22 09:02 MCH 28 pg (28-32) 01/30/22 09:02 MCHC 33 % (32-34) 01/30/22 09:02 RDW 14.2 % (13.2-15.2) 01/30/22 09:02 Plt Count 116 K/mm3 (140-440) L 01/30/22 09:02 Lymph % (Auto) 26.8 % (13.4-35.0) 01/30/22 09:02 [place] % (Auto) 10.4 % (0.0-7.3) H 01/30/22 09:02 Eos % (Auto) 1.6 % (0.0-4.3) 01/30/22 09:02 Baso % (Auto) 0.5 % (0.0-1.8) 01/30/22 09:02 Lymph # (Auto) 1.5 K/mm3 (1.2-5.4) 01/30/22 09:02 [place] # (Auto) 0.6 K/mm3 (0.0-0.8) 01/30/22 09:02 Eos # (Auto) 0.1 K/mm3 (0.0-0.4) 01/30/22 09:02 Baso # (Auto) 0.0 K/mm3 (0.0-0.1) 01/30/22 09:02 Seg Neutrophils % 60.7 % (40.0-70.0) 01/30/22 09:02 Seg Neutrophils # 3.4 K/mm3 (1.8-7.7) 01/30/22 09:02 Sodium 136 mmol/L (137-145) L 01/30/22 09:02 Potassium 4.2 mmol/L (3.6-5.0) 01/30/22 09:02 Chloride 102.6 mmol/L (98-107) 01/30/22 09:02 Carbon Dioxide 22 mmol/L (22-30) 01/30/22 09:02 Anion Gap 16 mmol/L 01/30/22 09:02 BUN 16 mg/dL (9-20) 01/30/22 09:02 Creatinine 1.2 mg/dL (0.8-1.3) 01/30/22 09:02 Estimated GFR > 60 ml/min 01/30/22 09:02 BUN/Creatinine Ratio 13 % 01/30/22 09:02 Glucose 243 mg/dL (75-100) H 01/30/22 09:02 POC Glucose 300 mg/dL (70-105) H 02/05/22 16:11 Hemoglobin A1c 8.9 % (4-6) H 01/30/22 09:02 Calcium 9.4 mg/dL (8.4-10.2) 01/30/22 09:02 Total Bilirubin 0.50 mg/dL (0.1-1.2) 01/30/22 09:02 AST 17 units/L (5-40) 01/30/22 09:02 ALT 16 units/L (7-56) 01/30/22 09:02 Alkaline Phosphatase 89 units/L (35-129) 01/30/22 09:02 Total Protein 7.6 g/dL (6.3-8.2) 01/30/22 09:02 Albumin 4.1 g/dL (3.9-5) 01/30/22 09:02 Albumin/Globulin Ratio 1.2 % 01/30/22 09:02 Triglycerides 76 mg/dL (2-149) 01/30/22 09:02 Cholesterol 100 mg/dL (50-199) 01/30/22 09:02 LDL Cholesterol Direct 38 mg/dL (50-130) L 01/30/22 09:02 HDL Cholesterol 50 mg/dL (40-59) 01/30/22 09:02 Cholesterol/HDL Ratio 2.00 % 01/30/22 09:02 TSH 1.020 mlU/mL (0.270-4.200) 01/30/22 09:02 Hepatitis A IgM Ab Non-reactive (NonReactive) 01/30/22: Hep Bs Antigen Non-reactive (Negative) 01/30/22: Hep B Core IgM Ab Non-reactive (NonReactive) 01/30/22 09: Hepatitis C Antibody Non-reactive (NonReactive) 05/20/22 09:02 Manuel/IV: Voiding Method Toilet Active Medications - Current Medications Current Medications: Generic Name Dose Route Start Last Admin Trade Name Freq PRN Reason Stop Dose Admin Albuterol 2.5 mg 01/30/22 11:23 Albuterol 2.5 Mg/3 Ml Nebu IH Q4HRT PRN Shortness Of Breath Amlodipine Besylate 5 mg 01/30/22 12:00 02/05/22 10:22 Amlodipine 5 Mg Tab PO Not Given DAILY TIFFANIE Atorvastatin Calcium 40 mg 01/30/22 22:00 02/04/22 21:24 Atorvastatin 40 Mg Tab PO 40 mg QHS TIFFANIE Administration Clopidogrel Bisulfate 75 mg 01/30/22 12:00 02/05/22 10:19 Clopidogrel 75 Mg Tab PO 75 mg QDAY TIFFANIE Administration Dextrose 50 ml 01/30/22 15:15 Dextrose 50% In Water (25gm) 50 Ml Syringe IV Q30MIN PRN Hypoglycemia Protocol Docusate Sodium 100 mg 01/30/22 12:00 02/05/22 10:19 Docusate Sodium 100 Mg Cap PO 100 mg BID TIFFANIE Administration Donepezil HCl 5 mg 01/30/22 22:00 02/04/22 21:26 Donepezil 5 Mg Tab PO 5 mg HS TIFFANIE Administration Fluoxetine HCl 30 mg 01/31/22 10:00 02/05/22 10:19 Fluoxetine 10 Mg Tab PO 30 mg QDAY TIFFANIE Administration Gabapentin 200 mg 01/30/22 14:00 02/05/22 17:41 Gabapentin 100 Mg Cap PO Not Given TID TIFFANIE Insulin Glargine 40 units 01/30/22 22:00 02/04/22 21:27 Insulin Glargine 100 Units/Ml SUB-Q 40 units QHS TIFFANIE Administration Insulin Human Lispro 0 unit 01/30/22 16:30 02/05/22 17:03 Insulin Lispro 100 Unit/Ml SUB-Q 6 unit ACHS TIFFANIE Administration Protocol Losartan Potassium 50 mg 01/30/22 12:00 02/05/22 10:22 Losartan 50 Mg Tab PO Not Given QDAY TIFFANIE Quetiapine Fumarate 50 mg 01/30/22 22:00 02/05/22 10:19 Quetiapine 25 Mg Tab PO 50 mg BID TIFFANIE Administration Tamsulosin HCl 0.8 mg 01/30/22 22:00 02/04/22 21:24 Tamsulosin 0.4 Mg Cap PO 0.8 mg HS TIFFANIE Administration
[2022-02-05] MEDS: TAMSULOSIN 0.4 MG CAP PO SCH (21:23)
[2022-02-05] MEDS: DONEPEZIL 5 MG TAB PO SCH (21:23)
[2022-02-05] MEDS: INSULIN GLARGINE 100 UNITS/ML SUB-Q SCH (22:13)
[2022-02-06] MEDS: GABAPENTIN 100 MG CAP PO SCH ×3 (09:16→20:18)
[2022-02-06] MEDS: INSULIN LISPRO 100 UNIT/ML SUB-Q SCH ×4 (09:16→22:30)
--- NOTE | 2022-02-06 10:00 | Progress Note ---
Subjective Date of service: 02/06/22 Principal diagnosis: Dementia w/behavioral disturbance Subjective Comment: 02/06:The patient was seen today. he is calm and cooperative. the patient continues to present with confusion " I still want to speak with the police." he denies suicidal/homicidal ideation. No changes made today. 02/05: The patient was seen today. He is sitting in the dayroom eating breakfast. He is calm and cooperative. The patient is confused, but pleasant. He says he slept good. The patient says "I'm hoping to go home" he then laughs. He denies SI/HI or hallucinations. 02/04 The patient was seen today. He is calm and cooperative. It's difficult for him to articulate his thoughts. He did say he's feels okay and slept fine. 02/03 The patient was seen today. He has poor insight. He is calm and cooperative. He is confused but answers some simple questions. He says "I have a hard time saying what I want to say." The patient says "I thought I was going home." He could not articulate how he was feeling. 02/02 The patient was seen today. He is a little less confused today. He says he's doing okay. The patient says "I thought I was going home today." He denies SI/HI or hallucinations. He says he slept okay. 02/01 The patient was seen today. He is confused and unable to engage in the evaluation. He is talking nonsensically. He says "I don't know who moved me here." He then says "it was supposed to been three numbers." 01/31 The patient was seen today. He is confused and has poor insight. He says "they woke up with me last night." He's unable to engage in the evaluation due to his insight. REVIEW OF SYSTEMS MENTAL STATUS EXAMINATION Diagnoses: Dementia with behavioral disturbances Treatment Plan: Patient admitted for inpatient psychiatric evaluation, medication adjustment and close monitoring The patient's behavior, mood, sleep and appetite will be closely monitored. Patient enrolled in individual and group therapeutic sessions and encouraged to attend. Patient provided with a safe and structured environment. Patient's physical health needs will be addressed by the Hospitalist. Hospitalist Consulted Labs including CBC, CMP, Lipid profile and Hemoglobin A1C levels ordered for baseline reference Social Assessment will be completed and the Air Carrier Inspector will work with patient and family to ensure a suitable and safe disposition Medication adjustment will be made as clinically indicated No changes made today. Usual Wellness Jew/Preservation: - Start Trazodone 50 mg po QHS & 50 mg po QHS PRN between 10 PM & 2 AM for insomnia - Start Melatonin 5 mg po QHS to promote circadian rhythm The patient agreed on the treatment plan, understood the risk, benefit, alternative treatment, potential consequence of no treatment, and gave informed consent. Estimated days: 7 Medications and Allergies Medications and Allergies Allergies Allergy/AdvReac Type Severity Reaction Status Date / Time No Known Allergies Allergy Verified 01/29/22 22:41 Home Medications Medication Instructions Recorded Confirmed Last Taken Type Albuterol Sulfate [Proair 90 mcg IH BID PRN 01/30/22 01/30/22 Unknown History Respiclick] Apixaban [Eliquis] 5 mg PO BID 01/30/22 01/30/22 Unknown History AtorvaSTATin [Lipitor] 40 mg PO QHS 01/30/22 01/30/22 Unknown History Clopidogrel [Plavix] 75 mg PO QDAY 01/30/22 01/30/22 Unknown History Docusate Sodium [Colace] 100 mg PO BID 01/30/22 01/30/22 Unknown History FLUoxetine [PROzac] 20 mg PO QDAY 01/30/22 01/30/22 Unknown History Gabapentin 200 mg PO TID 01/30/22 01/30/22 Unknown History Insulin Degludec (Nf) [Tresiba 40 units SQ DAILY 01/30/22 01/30/22 Unknown History Flextouch U-100 (Nf)] Losartan [Cozaar] 50 mg PO QDAY 01/30/22 01/30/22 Unknown History Quetiapine Fumarate [SEROquel] 50 mg PO BID 01/30/22 01/30/22 Unknown History Tamsulosin [Flomax] 0.8 mg PO HS 01/30/22 01/30/22 Unknown History amLODIPine [Norvasc] 5 mg PO DAILY 01/30/22 01/30/22 Unknown History donepeziL [Aricept] 5 mg PO HS 01/30/22 01/30/22 Unknown History Active Meds: Active Medications Albuterol (Albuterol 2.5 Mg/3 Ml Nebu) 2.5 mg IH Q4HRT PRN PRN Reason: Shortness Of Breath Amlodipine Besylate (Amlodipine 5 Mg Tab) 5 mg PO DAILY [facility] Last Admin: 02/05/22 10:22 Dose: Not Given Atorvastatin Calcium (Atorvastatin 40 Mg Tab) 40 mg PO QHS [facility] Last Admin: 02/05/22 21:23 Dose: 40 mg Clopidogrel Bisulfate (Clopidogrel 75 Mg Tab) 75 mg PO QDAY [facility] Last Admin: 02/05/22 10:19 Dose: 75 mg Dextrose (Dextrose 50% In Water (25gm) 50 Ml Syringe) 50 ml IV Q30MIN PRN; Protocol PRN Reason: Hypoglycemia Docusate Sodium (Docusate Sodium 100 Mg Cap) 100 mg PO BID [facility] Last Admin: 02/05/22 21:23 Dose: 100 mg Donepezil HCl (Donepezil 5 Mg Tab) 5 mg PO [facility] Last Admin: 02/05/22 21:23 Dose: 5 mg Fluoxetine HCl (Fluoxetine 10 Mg Tab) 30 mg PO QDAY [facility] Last Admin: 02/05/22 10:19 Dose: 30 mg Gabapentin (Gabapentin 100 Mg Cap) 200 mg PO TID [facility] Last Admin: 02/06/22 09:16 Dose: 200 mg Insulin Glargine (Insulin Glargine 100 Units/Ml) 40 units SUB-Q QHS [facility] Last Admin: 02/05/22 22:13 Dose: 40 units Insulin Human Lispro (Insulin Lispro 100 Unit/Ml) 0 unit SUB-Q ACHS [facility]; Protocol Last Admin: 02/06/22 09:16 Dose: Not Given Losartan Potassium (Losartan 50 Mg Tab) 50 mg PO QDAY [facility] Last Admin: 02/05/22 10:22 Dose: Not Given Quetiapine Fumarate (Quetiapine 25 Mg Tab) 50 mg PO BID [facility] Last Admin: 02/05/22 21:23 Dose: 50 mg Tamsulosin HCl (Tamsulosin 0.4 Mg Cap) 0.8 mg PO [facility] Last Admin: 02/05/22 21:23 Dose: 0.8 mg Results - Results Labs/Vitals: Laboratory Last Values WBC 5.7 K/mm3 (4.5-11.0) 01/30/22 09:02 RBC 4.87 M/mm3 (3.65-5.03) 01/30/22 09:02 Hgb 13.5 gm/dl (11.8-15.2) 01/30/22 09:02 Hct 41.0 % (35.5-45.6) 01/30/22 09:02 MCV 84 fl (84-94) 01/30/22 09:02 MCH 28 pg (28-32) 01/30/22 09:02 MCHC 33 % (32-34) 01/30/22 09:02 RDW 14.2 % (13.2-15.2) 01/30/22 09:02 Plt Count 116 K/mm3 (140-440) L 01/30/22 09:02 Lymph % (Auto) 26.8 % (13.4-35.0) 01/30/22 09:02 [place] % (Auto) 10.4 % (0.0-7.3) H 01/30/22 09:02 Eos % (Auto) 1.6 % (0.0-4.3) 01/30/22 09:02 Baso % (Auto) 0.5 % (0.0-1.8) 01/30/22 09:02 Lymph # (Auto) 1.5 K/mm3 (1.2-5.4) 01/30/22 09:02 [place] # (Auto) 0.6 K/mm3 (0.0-0.8) 01/30/22 09:02 Eos # (Auto) 0.1 K/mm3 (0.0-0.4) 01/30/22 09:02 Baso # (Auto) 0.0 K/mm3 (0.0-0.1) 01/30/22 09:02 Seg Neutrophils % 60.7 % (40.0-70.0) 01/30/22 09:02 Seg Neutrophils # 3.4 K/mm3 (1.8-7.7) 01/30/22 09:02 Sodium 136 mmol/L (137-145) L 01/30/22 09:02 Potassium 4.2 mmol/L (3.6-5.0) 01/30/22 09:02 Chloride 102.6 mmol/L (98-107) 01/30/22 09:02 Carbon Dioxide 22 mmol/L (22-30) 01/30/22 09:02 Anion Gap 16 mmol/L 01/30/22 09:02 BUN 16 mg/dL (9-20) 01/30/22 09:02 Creatinine 1.2 mg/dL (0.8-1.3) 01/30/22 09:02 Estimated GFR > 60 ml/min 01/30/22 09:02 BUN/Creatinine Ratio 13 % 01/30/22 09:02 Glucose 243 mg/dL (75-100) H 01/30/22 09:02 POC Glucose 127 mg/dL (70-105) H 02/06/22 07:39 Hemoglobin A1c 8.9 % (4-6) H 01/30/22 09:02 Calcium 9.4 mg/dL (8.4-10.2) 01/30/22 09:02 Total Bilirubin 0.50 mg/dL (0.1-1.2) 01/30/22 09:02 AST 17 units/L (5-40) 01/30/22 09:02 ALT 16 units/L (7-56) 01/30/22 09:02 Alkaline Phosphatase 89 units/L (35-129) 01/30/22 09:02 Total Protein 7.6 g/dL (6.3-8.2) 01/30/22 09:02 Albumin 4.1 g/dL (3.9-5) 01/30/22 09:02 Albumin/Globulin Ratio 1.2 % 01/30/22 09:02 Triglycerides 76 mg/dL (2-149) 01/30/22 09:02 Cholesterol 100 mg/dL (50-199) 01/30/22 09:02 LDL Cholesterol Direct 38 mg/dL (50-130) L 01/30/22 09:02 HDL Cholesterol 50 mg/dL (40-59) 01/30/22 09:02 Cholesterol/HDL Ratio 2.00 % 01/30/22 09:02 TSH 1.020 mlU/mL (0.270-4.200) 01/30/22 09:02 Hepatitis A IgM Ab Non-reactive (NonReactive) 01/30/22 09:02 Hep Bs Antigen Non-reactive (Negative) 01/30/22 09:02 Hep B Core IgM Ab Non-reactive (NonReactive) 01/30/22 09:02 Hepatitis C Antibody Non-reactive (NonReactive) 01/30/22 09:02 Last Vital Signs Temp 98.2 F 02/05/22 19:48 Pulse 85 02/05/22 19:48 Resp 17 02/05/22 19:48 BP 172/88 02/05/22 19:48 Pulse Ox 99 02/05/22 19:48
[2022-02-06] MEDS: amLODIPine 5 MG TAB PO SCH (10:38)
[2022-02-06] MEDS: DOCUSATE SODIUM 100 MG CAP PO SCH ×2 (10:39→21:52)
[2022-02-06] MEDS: LOSARTAN 50 MG TAB PO SCH (10:40)
[2022-02-06] MEDS: QUEtiapine 25 MG TAB PO SCH ×2 (10:41→21:53)
[2022-02-06] MEDS: FLUoxetine 10 MG TAB PO SCH (10:41)
[2022-02-06] MEDS: CLOPIDOGREL 75 MG TAB PO SCH (10:41)
[2022-02-06] MEDS: TAMSULOSIN 0.4 MG CAP PO SCH (21:52)
[2022-02-06] MEDS: DONEPEZIL 5 MG TAB PO SCH (21:52)
[2022-02-06] MEDS: INSULIN GLARGINE 100 UNITS/ML SUB-Q SCH (22:30)
[2022-02-07] MEDS: INSULIN LISPRO 100 UNIT/ML SUB-Q SCH ×4 (08:35→22:08)
[2022-02-07] MEDS: GABAPENTIN 100 MG CAP PO SCH ×3 (08:36→20:36)
--- NOTE | 2022-02-07 09:41 | Progress Note ---
Subjective Date of service: 02/07/22 Principal diagnosis: Dementia w/behavioral disturbance Subjective Comment: 02/07: The patient was seen today. The patient is tangential and confused. " I would like to call the magician helper; I'm trying to get home." 02/06:The patient was seen today. He is calm and cooperative. the patient continues to present with confusion " I still want to speak with the police." he denies suicidal/homicidal ideation. No changes made today. 02/05: The patient was seen today. He is sitting in the dayroom eating breakfast. He is calm and cooperative. The patient is confused, but pleasant. He says he slept good. The patient says "I'm hoping to go home" he then laughs. He denies SI/HI or hallucinations. 02/04 The patient was seen today. He is calm and cooperative. It's difficult for him to articulate his thoughts. He did say he's feels okay and slept fine. 02/03 The patient was seen today. He has poor insight. He is calm and cooperative. He is confused but answers some simple questions. He says "I have a hard time saying what I want to say." The patient says "I thought I was going home." He could not articulate how he was feeling. 02/02 The patient was seen today. He is a little less confused today. He says he's doing okay. The patient says "I thought I was going home today." He denies SI/HI or hallucinations. He says he slept okay. 02/01 The patient was seen today. He is confused and unable to engage in the evaluation. He is talking nonsensically. He says "I don't know who moved me here." He then says "it was supposed to been three numbers." 01/31 The patient was seen today. He is confused and has poor insight. He says "they woke up with me last night." He's unable to engage in the evaluation due to his insight. REVIEW OF SYSTEMS MENTAL STATUS EXAMINATION Diagnoses: Dementia with behavioral disturbances Treatment Plan: Patient admitted for inpatient psychiatric evaluation, medication adjustment and close monitoring The patient's behavior, mood, sleep and appetite will be closely monitored. Patient enrolled in individual and group therapeutic sessions and encouraged to attend. Patient provided with a safe and structured environment. Patient's physical health needs will be addressed by the Hospitalist. Hospitalist Consulted Labs including CBC, CMP, Lipid profile and Hemoglobin A1C levels ordered for baseline reference Social Assessment will be completed and the Coding Analyst will work with patient and family to ensure a suitable and safe disposition Medication adjustment will be made as clinically indicated No changes made today. Usual Wellness Hoahaoism/Preservation: - Start Trazodone 50 mg po QHS & 50 mg po QHS PRN between 10 PM & 2 AM for insomnia - Start Melatonin 5 mg po QHS to promote circadian rhythm The patient agreed on the treatment plan, understood the risk, benefit, alternative treatment, potential consequence of no treatment, and gave informed consent. Estimated days: 7 Medications and Allergies Medications and Allergies Allergies Allergy/AdvReac Type Severity Reaction Status Date / Time No Known Allergies Allergy Verified 01/29/22 22:41 Home Medications Medication Instructions Recorded Confirmed Last Taken Type Albuterol Sulfate [Proair 90 mcg IH BID PRN 01/30/22 01/30/22 Unknown History Respiclick] Apixaban [Eliquis] 5 mg PO BID 01/30/22 01/30/22 Unknown History AtorvaSTATin [Lipitor] 40 mg PO QHS 01/30/22 01/30/22 Unknown History Clopidogrel [Plavix] 75 mg PO QDAY 01/30/22 01/30/22 Unknown History Docusate Sodium [Colace] 100 mg PO BID 01/30/22 01/30/22 Unknown History FLUoxetine [PROzac] 20 mg PO QDAY 01/30/22 01/30/22 Unknown History Gabapentin 200 mg PO TID 01/30/22 01/30/22 Unknown History Insulin Degludec (Nf) [Tresiba 40 units SQ DAILY 01/30/22 01/30/22 Unknown History Flextouch U-100 (Nf)] Losartan [Cozaar] 50 mg PO QDAY 01/30/22 01/30/22 Unknown History Quetiapine Fumarate [SEROquel] 50 mg PO BID 01/30/22 01/30/22 Unknown History Tamsulosin [Flomax] 0.8 mg PO HS 01/30/22 01/30/22 Unknown History amLODIPine [Norvasc] 5 mg PO DAILY 01/30/22 01/30/22 Unknown History donepeziL [Aricept] 5 mg PO HS 01/30/22 01/30/22 Unknown History Active Meds: Active Medications Albuterol (Albuterol 2.5 Mg/3 Ml Nebu) 2.5 mg IH Q4HRT PRN PRN Reason: Shortness Of Breath Amlodipine Besylate (Amlodipine 5 Mg Tab) 5 mg PO DAILY [facility] Last Admin: 02/06/22 10:38 Dose: 5 mg Atorvastatin Calcium (Atorvastatin 40 Mg Tab) 40 mg PO QHS [facility] Last Admin: 02/06/22 21:53 Dose: 40 mg Clopidogrel Bisulfate (Clopidogrel 75 Mg Tab) 75 mg PO QDAY [facility] Last Admin: 02/06/22 10:41 Dose: 75 mg Dextrose (Dextrose 50% In Water (25gm) 50 Ml Syringe) 50 ml IV Q30MIN PRN; Protocol PRN Reason: Hypoglycemia Docusate Sodium (Docusate Sodium 100 Mg Cap) 100 mg PO BID [facility] Last Admin: 02/06/22 21:52 Dose: 100 mg Donepezil HCl (Donepezil 5 Mg Tab) 5 mg PO [facility] Last Admin: 02/06/22 21:52 Dose: 5 mg Fluoxetine HCl (Fluoxetine 10 Mg Tab) 30 mg PO QDAY [facility] Last Admin: 02/06/22 10:41 Dose: 30 mg Gabapentin (Gabapentin 100 Mg Cap) 200 mg PO TID [facility] Last Admin: 02/07/22 08:36 Dose: 200 mg Insulin Glargine (Insulin Glargine 100 Units/Ml) 40 units SUB-Q QHS [facility] Last Admin: 02/06/22 22:30 Dose: 40 units Insulin Human Lispro (Insulin Lispro 100 Unit/Ml) 0 unit SUB-Q [facility]; Protocol Last Admin: 02/07/22 08:35 Dose: 2 unit Losartan Potassium (Losartan 50 Mg Tab) 50 mg PO QDAY [facility] Last Admin: 02/06/22 10:40 Dose: 50 mg Quetiapine Fumarate (Quetiapine 25 Mg Tab) 50 mg PO BID [facility] Last Admin: 02/06/22 21:53 Dose: 50 mg Tamsulosin HCl (Tamsulosin 0.4 Mg Cap) 0.8 mg PO [facility] Last Admin: 02/06/22 21:52 Dose: 0.8 mg Results - Results Labs/Vitals: Laboratory Last Values WBC 5.7 K/mm3 (4.5-11.0) 05/20/22 09:02 RBC 4.87 M/mm3 (3.65-5.03) 01/30/22 09:02 Hgb 13.5 gm/dl (11.8-15.2) 01/30/22 09:02 Hct 41.0 % (35.5-45.6) 01/30/22 09:02 MCV 84 fl (84-94) 01/30/22 09:02 MCH 28 pg (28-32) 01/30/22 09:02 MCHC 33 % (32-34) 01/30/22 09:02 RDW 14.2 % (13.2-15.2) 01/30/22 09:02 Plt Count 116 K/mm3 (140-440) L 01/30/22 09:02 Lymph % (Auto) 26.8 % (13.4-35.0) 01/30/22 09:02 [place] % (Auto) 10.4 % (0.0-7.3) H 01/30/22 09:02 Eos % (Auto) 1.6 % (0.0-4.3) 01/30/22 09:02 Baso % (Auto) 0.5 % (0.0-1.8) 01/30/22 09:02 Lymph # (Auto) 1.5 K/mm3 (1.2-5.4) 01/30/22 09:02 [place] # (Auto) 0.6 K/mm3 (0.0-0.8) 01/30/22 09:02 Eos # (Auto) 0.1 K/mm3 (0.0-0.4) 01/30/22 09:02 Baso # (Auto) 0.0 K/mm3 (0.0-0.1) 01/30/22 09:02 Seg Neutrophils % 60.7 % (40.0-70.0) 01/30/22 09:02 Seg Neutrophils # 3.4 K/mm3 (1.8-7.7) 01/30/22 09:02 Sodium 136 mmol/L (137-145) L 01/30/22 09:02 Potassium 4.2 mmol/L (3.6-5.0) 01/30/22 09:02 Chloride 102.6 mmol/L (98-107) 01/30/22 09:02 Carbon Dioxide 22 mmol/L (22-30) 01/30/22 09:02 Anion Gap 16 mmol/L 01/30/22 09:02 BUN 16 mg/dL (9-20) 01/30/22 09:02 Creatinine 1.2 mg/dL (0.8-1.3) 01/30/22 09:02 Estimated GFR > 60 ml/min 01/30/22 09:02 BUN/Creatinine Ratio 13 % 01/30/22 09:02 Glucose 243 mg/dL (75-100) H 01/30/22 09:02 POC Glucose 181 mg/dL (70-105) H 02/07/22 06:09 Hemoglobin A1c 8.9 % (4-6) H 01/30/22 09:02 Calcium 9.4 mg/dL (8.4-10.2) 01/30/22 09:02 Total Bilirubin 0.50 mg/dL (0.1-1.2) 01/30/22 09:02 AST 17 units/L (5-40) 01/30/22 09:02 ALT 16 units/L (7-56) 01/30/22 09:02 Alkaline Phosphatase 89 units/L (35-129) 01/30/22 09:02 Total Protein 7.6 g/dL (6.3-8.2) 01/30/22 09:02 Albumin 4.1 g/dL (3.9-5) 01/30/22 09:02 Albumin/Globulin Ratio 1.2 % 01/30/22 09:02 Triglycerides 76 mg/dL (2-149) 01/30/22 09:02 Cholesterol 100 mg/dL (50-199) 01/30/22 09:02 LDL Cholesterol Direct 38 mg/dL (50-130) L 01/30/22 09:02 HDL Cholesterol 50 mg/dL (40-59) 01/30/22 09:02 Cholesterol/HDL Ratio 2.00 % 01/30/22 09:02 TSH 1.020 mlU/mL (0.270-4.200) 01/30/22 09:02 Hepatitis A IgM Ab Non-reactive (NonReactive) 01/30/22 09:02 Hep Bs Antigen Non-reactive (Negative) 01/30/22 09:02 Hep B Core IgM Ab Non-reactive (NonReactive) 01/30/22 09:02 Hepatitis C Antibody Non-reactive (NonReactive) 01/30/22 09:02 Last Vital Signs Temp 98.2 F 02/06/22 19:43 Pulse 88 02/06/22 22:00 Resp 17 02/06/22 19:43 BP 171/91 02/06/22 22:00 Pulse Ox 98 02/06/22 22:00
[2022-02-07] MEDS: QUEtiapine 25 MG TAB PO SCH ×2 (11:27→21:36)
[2022-02-07] MEDS: CLOPIDOGREL 75 MG TAB PO SCH (11:28)
[2022-02-07] MEDS: amLODIPine 5 MG TAB PO SCH (11:28)
[2022-02-07] MEDS: FLUoxetine 10 MG TAB PO SCH (11:28)
[2022-02-07] MEDS: DOCUSATE SODIUM 100 MG CAP PO SCH ×2 (11:29→21:36)
[2022-02-07] MEDS: LOSARTAN 50 MG TAB PO SCH (11:30)
[2022-02-07] MEDS: DONEPEZIL 5 MG TAB PO SCH (21:35)
[2022-02-07] MEDS: TAMSULOSIN 0.4 MG CAP PO SCH (21:36)
[2022-02-07] MEDS: INSULIN GLARGINE 100 UNITS/ML SUB-Q SCH (22:08)
[2022-02-08] MEDS: INSULIN LISPRO 100 UNIT/ML SUB-Q SCH ×4 (08:06→23:06)
[2022-02-08] MEDS: GABAPENTIN 100 MG CAP PO SCH ×3 (09:24→20:52)
[2022-02-08] MEDS: DOCUSATE SODIUM 100 MG CAP PO SCH ×2 (09:24→21:42)
[2022-02-08] MEDS: CLOPIDOGREL 75 MG TAB PO SCH (09:25)
[2022-02-08] MEDS: QUEtiapine 25 MG TAB PO SCH ×2 (09:25→21:42)
[2022-02-08] MEDS: FLUoxetine 10 MG TAB PO SCH (09:25)
[2022-02-08] MEDS: LOSARTAN 50 MG TAB PO SCH (09:34)
[2022-02-08] MEDS: amLODIPine 5 MG TAB PO SCH (09:34)
--- NOTE | 2022-02-08 09:58 | Progress Note ---
Subjective Date of service: 02/08/22 Principal diagnosis: Dementia w/behavioral disturbance Subjective Comment: 02/08:The patient was seen in his room this morning. The patient is confused " they're talking about me going back to school. " No changes made. 02/07: The patient was seen today. The patient is tangential and confused. " I would like to call the sheriff sergeant; I'm trying to get home." 02/06:The patient was seen today. He is calm and cooperative. the patient continues to present with confusion " I still want to speak with the police." he denies suicidal/homicidal ideation. No changes made today. 02/05: The patient was seen today. He is sitting in the dayroom eating breakfast. He is calm and cooperative. The patient is confused, but pleasant. He says he slept good. The patient says "I'm hoping to go home" he then laughs. He denies SI/HI or hallucinations. 02/04 The patient was seen today. He is calm and cooperative. It's difficult for him to articulate his thoughts. He did say he's feels okay and slept fine. 02/03 The patient was seen today. He has poor insight. He is calm and cooperative. He is confused but answers some simple questions. He says "I have a hard time saying what I want to say." The patient says "I thought I was going home." He could not articulate how he was feeling. 02/02 The patient was seen today. He is a little less confused today. He says he's doing okay. The patient says "I thought I was going home today." He denies SI/HI or hallucinations. He says he slept okay. 02/01 The patient was seen today. He is confused and unable to engage in the evaluation. He is talking nonsensically. He says "I don't know who moved me here." He then says "it was supposed to been three numbers." 01/31 The patient was seen today. He is confused and has poor insight. He says "they woke up with me last night." He's unable to engage in the evaluation due to his insight. REVIEW OF SYSTEMS MENTAL STATUS EXAMINATION Diagnoses: Dementia with behavioral disturbances Treatment Plan: Patient admitted for inpatient psychiatric evaluation, medication adjustment and close monitoring The patient's behavior, mood, sleep and appetite will be closely monitored. Patient enrolled in individual and group therapeutic sessions and encouraged to attend. Patient provided with a safe and structured environment. Patient's physical health needs will be addressed by the Hospitalist. Hospitalist Consulted Labs including CBC, CMP, Lipid profile and Hemoglobin A1C levels ordered for baseline reference Social Assessment will be completed and the [employer] Farm[employer] will work with patient and family to ensure a suitable and safe disposition Medication adjustment will be made as clinically indicated No changes made today. Usual Wellness Baptism/Preservation: - Start Trazodone 50 mg po QHS & 50 mg po QHS PRN between 10 PM & 2 AM for insomnia - Start Melatonin 5 mg po QHS to promote circadian rhythm The patient agreed on the treatment plan, understood the risk, benefit, alternative treatment, potential consequence of no treatment, and gave informed consent. Estimated days: 7 Medications and Allergies Medications and Allergies Allergies Allergy/AdvReac Type Severity Reaction Status Date / Time No Known Allergies Allergy Verified 01/29/22 22:41 Home Medications Medication Instructions Recorded Confirmed Last Taken Type Albuterol Sulfate [Proair 90 mcg IH BID PRN 01/30/22 01/30/22 Unknown History Respiclick] Apixaban [Eliquis] 5 mg PO BID 01/30/22 01/30/22 Unknown History AtorvaSTATin [Lipitor] 40 mg PO QHS 01/30/22 01/30/22 Unknown History Clopidogrel [Plavix] 75 mg PO QDAY 01/30/22 01/30/22 Unknown History Docusate Sodium [Colace] 100 mg PO BID 01/30/22 01/30/22 Unknown History FLUoxetine [PROzac] 20 mg PO QDAY 01/30/22 01/30/22 Unknown History Gabapentin 200 mg PO TID 01/30/22 01/30/22 Unknown History Insulin Degludec (Nf) [Tresiba 40 units SQ DAILY 01/30/22 01/30/22 Unknown History Flextouch U-100 (Nf)] Losartan [Cozaar] 50 mg PO QDAY 01/30/22 01/30/22 Unknown History Quetiapine Fumarate [SEROquel] 50 mg PO BID 01/30/22 01/30/22 Unknown History Tamsulosin [Flomax] 0.8 mg PO HS 01/30/22 01/30/22 Unknown History amLODIPine [Norvasc] 5 mg PO DAILY 01/30/22 01/30/22 Unknown History donepeziL [Aricept] 5 mg PO HS 01/30/22 01/30/22 Unknown History Active Meds: Active Medications Albuterol (Albuterol 2.5 Mg/3 Ml Nebu) 2.5 mg IH Q4HRT PRN PRN Reason: Shortness Of Breath Amlodipine Besylate (Amlodipine 5 Mg Tab) 5 mg PO DAILY [facility] Last Admin: 02/08/22 09:34 Dose: Not Given Atorvastatin Calcium (Atorvastatin 40 Mg Tab) 40 mg PO QHS [facility] Last Admin: 02/07/22 21:36 Dose: 40 mg Clopidogrel Bisulfate (Clopidogrel 75 Mg Tab) 75 mg PO QDAY [facility] Last Admin: 02/08/22 09:25 Dose: 75 mg Dextrose (Dextrose 50% In Water (25gm) 50 Ml Syringe) 50 ml IV Q30MIN PRN; Protocol PRN Reason: Hypoglycemia Docusate Sodium (Docusate Sodium 100 Mg Cap) 100 mg PO BID [facility] Last Admin: 02/08/22 09:24 Dose: 100 mg Donepezil HCl (Donepezil 5 Mg Tab) 5 mg PO [facility] Last Admin: 02/07/22 21:35 Dose: 5 mg Fluoxetine HCl (Fluoxetine 10 Mg Tab) 30 mg PO QDAY [facility] Last Admin: 02/08/22 09:25 Dose: 30 mg Gabapentin (Gabapentin 100 Mg Cap) 200 mg PO TID [facility] Last Admin: 02/08/22 09:24 Dose: 200 mg Insulin Glargine (Insulin Glargine 100 Units/Ml) [facility] Last Admin: 02/07/22 22:08 Dose: 40 units Insulin Human Lispro (Insulin Lispro 100 Unit/Ml) 0 unit SUB-Q [facility]; Protocol Last Admin: 02/08/22 08:06 Dose: 2 unit Losartan Potassium (Losartan 50 Mg Tab) 50 mg PO QDAY [facility] Last Admin: 02/08/22 09:34 Dose: Not Given Quetiapine Fumarate (Quetiapine 25 Mg Tab) 50 mg PO BID [facility] Last Admin: 02/08/22 09:25 Dose: 50 mg Tamsulosin HCl (Tamsulosin 0.4 Mg Cap) 0.8 mg PO [facility] Last Admin: 02/07/22 21:36 Dose: 0.8 mg Results - Results Labs/Vitals: Laboratory Last Values WBC 5.7 K/mm3 (4.5-11.0) 01/30/22 09:02 RBC 4.87 M/mm3 (3.65-5.03) 01/30/22 09:02 Hgb 13.5 gm/dl (11.8-15.2) 01/30/22 09:02 Hct 41.0 % (35.5-45.6) 01/30/22 09:02 MCV 84 fl (84-94) 01/30/22 09:02 MCH 28 pg (28-32) 01/30/22 09:02 MCHC 33 % (32-34) 01/30/22 09:02 RDW 14.2 % (13.2-15.2) 01/30/22 09:02 Plt Count 116 K/mm3 (140-440) L 01/30/22 09:02 Lymph % (Auto) 26.8 % (13.4-35.0) 01/30/22 09:02 [place] % (Auto) 10.4 % (0.0-7.3) H 01/30/22 09:02 Eos % (Auto) 1.6 % (0.0-4.3) 01/30/22 09:02 Baso % (Auto) 0.5 % (0.0-1.8) 01/30/22 09:02 Lymph # (Auto) 1.5 K/mm3 (1.2-5.4) 01/30/22 09:02 [place] # (Auto) 0.6 K/mm3 (0.0-0.8) 01/30/22 09:02 Eos # (Auto) 0.1 K/mm3 (0.0-0.4) 01/30/22 09:02 Baso # (Auto) 0.0 K/mm3 (0.0-0.1) 01/30/22 09:02 Seg Neutrophils % 60.7 % (40.0-70.0) 01/30/22 09:02 Seg Neutrophils # 3.4 K/mm3 (1.8-7.7) 01/30/22 09:02 Sodium 136 mmol/L (137-145) L 01/30/22 09:02 Potassium 4.2 mmol/L (3.6-5.0) 01/30/22 09:02 Chloride 102.6 mmol/L (98-107) 01/30/22 09:02 Carbon Dioxide 22 mmol/L (22-30) 01/30/22 09:02 Anion Gap 16 mmol/L 01/30/22 09:02 BUN 16 mg/dL (9-20) 01/30/22 09:02 Creatinine 1.2 mg/dL (0.8-1.3) 01/30/22 09:02 Estimated GFR > 60 ml/min 01/30/22 09:02 BUN/Creatinine Ratio 13 % 01/30/22 09:02 Glucose 243 mg/dL (75-100) H 01/30/22 09:02 POC Glucose 161 mg/dL (70-105) H 02/08/22 06:35 Hemoglobin A1c 8.9 % (4-6) H 01/30/22 09:02 Calcium 9.4 mg/dL (8.4-10.2) 01/30/22 09:02 Total Bilirubin 0.50 mg/dL (0.1-1.2) 01/30/22 09:02 AST 17 units/L (5-40) 01/30/22 09:02 ALT 16 units/L (7-56) 01/30/22 09:02 Alkaline Phosphatase 89 units/L (35-129) 01/30/22 09:02 Total Protein 7.6 g/dL (6.3-8.2) 01/30/22 09:02 Albumin 4.1 g/dL (3.9-5) 01/30/22 09:02 Albumin/Globulin Ratio 1.2 % 01/30/22 09:02 Triglycerides 76 mg/dL (2-149) 01/30/22 09:02 Cholesterol 100 mg/dL (50-199) 01/30/22 09:02 LDL Cholesterol Direct 38 mg/dL (50-130) L 01/30/22 09:02 HDL Cholesterol 50 mg/dL (40-59) 01/30/22 09:02 Cholesterol/HDL Ratio 2.00 % 01/30/22 09:02 TSH 1.020 mlU/mL (0.270-4.200) 01/30/22 09:02 Hepatitis A IgM Ab Non-reactive (NonReactive) 01/30/22 09:02 Hep Bs Antigen Non-reactive (Negative) 01/30/22 09:02 Hep B Core IgM Ab Non-reactive (NonReactive) 01/30/22 09:02 Hepatitis C Antibody Non-reactive (NonReactive) 01/30/22 09:02 Last Vital Signs Temp 98.3 F 02/07/22 22:20 Pulse 82 02/07/22 22:20 Resp 16 02/07/22 22:20 BP 151/87 02/07/22 22:20 Pulse Ox 98 02/07/22 22:20
--- NOTE | 2022-02-08 18:52 | Progress Note ---
Assessment and Plan - Patient Problems (1) Vascular dementia with behavioral disturbance Current Visit: Yes Status: Acute Plan to address problem: Verbal prompting, verbal redirection, benzodiazepine therapy as clinically indicated. (2) Cerebral atherosclerosis Current Visit: Yes Status: Acute Plan to address problem: Antiplatelet therapy as clinically indicated, supportive care. (3) Hypertension Current Visit: Yes Status: Acute Qualifiers: Hypertension type: primary hypertension Qualified Code(s): I10 - Essential (primary) hypertension Plan to address problem: Monitor blood pressure every shift, continue medical management. (4) Diabetes Current Visit: Yes Status: Acute Plan to address problem: Consistent carbohydrate diet, Accu-Chek, insulin protocol, hypoglycemia protocol. (5) Advance care planning Current Visit: Yes Status: Acute Plan to address problem: Disease education done, care plan discussed, diagnoses discussed, prognosis discussed, +30 minutes. History Interval history: 76 YO Male Vascular Dementia with Behavioral Disturbance, Cerebral Athe rosclerosis, DM, HTN, Encephalopathy admitted to [facility] for psychiatric stabilization. Consult placed by Dr. Zhang for medical management. Patient seen and evaluated in the recreation room. Patient resting comfortably. No reported nursing events. Patient exhibits diminished cognition and aphasia. Patient remains at baseline level of cognition and function. Hospitalist Physical - Constitutional Vitals: Temp Pulse Resp BP Pulse Ox 97.8 F 92 H 18 152/81 97 02/08/22 18:28 02/08/22 18:28 02/08/22 18:28 02/08/22 18:28 02/08/22 18:28 General appearance: Present: no acute distress - EENT Eyes: Present: PERRL ENT: hearing decreased - Neck Neck: Present: supple - Respiratory Respiratory effort: normal Respiratory: bilateral: diminished - Cardiovascular Rhythm: regular Heart Sounds: Present: S1 & S2 - Extremities Extremities: no ischemia Peripheral Pulses: within normal limits - Abdominal General gastrointestinal: soft, non-tender, non-distended - Integumentary Integumentary: Present: clear, erythema - Psychiatric Psychiatric: cooperative - Neurologic Neurologic: CNII-XII intact Results - Labs CBC & Chem 7: 01/30/22 09:02 01/30/22 09:02 Labs: Laboratory Last Values WBC 5.7 K/mm3 (4.5-11.0) 01/30/22 09:02 RBC 4.87 M/mm3 (3.65-5.03) 01/30/22 09:02 Hgb 13.5 gm/dl (11.8-15.2) 01/30/22 09:02 Hct 41.0 % (35.5-45.6) 01/30/22 09:02 MCV 84 fl (84-94) 01/30/22 09:02 MCH 28 pg (28-32) 01/30/22 09:02 MCHC 33 % (32-34) 01/30/22 09:02 RDW 14.2 % (13.2-15.2) 01/30/22 09:02 Plt Count 116 K/mm3 (140-440) L 01/30/22 09:02 Lymph % (Auto) 26.8 % (13.4-35.0) 01/30/22 09:02 [place] % (Auto) 10.4 % (0.0-7.3) H 01/30/22 09:02 Eos % (Auto) 1.6 % (0.0-4.3) 01/30/22 09:02 Baso % (Auto) 0.5 % (0.0-1.8) 01/30/22 09:02 Lymph # (Auto) 1.5 K/mm3 (1.2-5.4) 01/30/22 09:02 [place] # (Auto) 0.6 K/mm3 (0.0-0.8) 01/30/22 09:02 Eos # (Auto) 0.1 K/mm3 (0.0-0.4) 01/30/22 09:02 Baso # (Auto) 0.0 K/mm3 (0.0-0.1) 01/30/22 09:02 Seg Neutrophils % 60.7 % (40.0-70.0) 01/30/22 09:02 Seg Neutrophils # 3.4 K/mm3 (1.8-7.7) 01/30/22 09:02 Sodium 136 mmol/L (137-145) L 01/30/22 09:02 Potassium 4.2 mmol/L (3.6-5.0) 01/30/22 09:02 Chloride 102.6 mmol/L (98-107) 01/30/22 09:02 Carbon Dioxide 22 mmol/L (22-30) 01/30/22 09:02 Anion Gap 16 mmol/L 01/30/22 09:02 BUN 16 mg/dL (9-20) 01/30/22 09:02 Creatinine 1.2 mg/dL (0.8-1.3) 01/30/22 09:02 Estimated GFR > 60 ml/min 01/30/22 09:02 BUN/Creatinine Ratio 13 % 01/30/22 09:02 Glucose 243 mg/dL (75-100) H 01/30/22 09:02 POC Glucose 347 mg/dL (70-105) H 02/08/22 16:35 Hemoglobin A1c 8.9 % (4-6) H 01/30/22 09:02 Calcium 9.4 mg/dL (8.4-10.2) 01/30/22 09:02 Total Bilirubin 0.50 mg/dL (0.1-1.2) 01/30/22 09:02 AST 17 units/L (5-40) 01/30/22 09:02 ALT 16 units/L (7-56) 01/30/22 09:02 Alkaline Phosphatase 89 units/L (35-129) 01/30/22 09:02 Total Protein 7.6 g/dL (6.3-8.2) 01/30/22 09:02 Albumin 4.1 g/dL (3.9-5) 01/30/22 09:02 Albumin/Globulin Ratio 1.2 % 01/30/22 09:02 Triglycerides 76 mg/dL (2-149) 01/30/22 09:02 Cholesterol 100 mg/dL (50-199) 01/30/22 09:02 LDL Cholesterol Direct 38 mg/dL (50-130) L 01/30/22 09:02 HDL Cholesterol 50 mg/dL (40-59) 01/30/22 09:02 Cholesterol/HDL Ratio 2.00 % 01/30/22 09:02 TSH 1.020 mlU/mL (0.270-4.200) 01/30/22 09:02 Hepatitis A IgM Ab Non-reactive (NonReactive) 01/30/22 09: Hep Bs Antigen Non-reactive (Negative) 01/30/22: Hep B Core IgM Ab Non-reactive (NonReactive) 01/30/22 09: Hepatitis C Antibody Non-reactive (NonReactive) 01/30/22 09:02 Manuel/IV: Voiding Method Toilet Active Medications - Current Medications Current Medications: Generic Name Dose Route Start Last Admin Trade Name Freq PRN Reason Stop Dose Admin Albuterol 2.5 mg 01/30/22 11:23 Albuterol 2.5 Mg/3 Ml Nebu IH Q4HRT PRN Shortness Of Breath Amlodipine Besylate 5 mg 01/30/22 12:00 02/08/22 09:34 Amlodipine 5 Mg Tab PO Not Given DAILY TIFFANIE Atorvastatin Calcium 40 mg 01/30/22 22:00 02/07/22 21:36 Atorvastatin 40 Mg Tab PO 40 mg QHS TIFFANIE Administration Clopidogrel Bisulfate 75 mg 01/30/22 12:00 02/08/22 09:25 Clopidogrel 75 Mg Tab PO 75 mg QDAY TIFFANIE Administration Dextrose 50 ml 01/30/22 15:15 Dextrose 50% In Water (25gm) 50 Ml Syringe IV Q30MIN PRN Hypoglycemia Protocol Docusate Sodium 100 mg 01/30/22 12:00 02/08/22 09:24 Docusate Sodium 100 Mg Cap PO 100 mg BID TIFFANIE Administration Donepezil HCl 5 mg 01/30/22 22:00 02/07/22 21:35 Donepezil 5 Mg Tab PO 5 mg HS TIFFANIE Administration Fluoxetine HCl 30 mg 01/31/22 10:00 02/08/22 09:25 Fluoxetine 10 Mg Tab PO 30 mg QDAY TIFFANIE Administration Gabapentin 200 mg 01/30/22 14:00 02/08/22 13:22 Gabapentin 100 Mg Cap PO 200 mg TID TIFFANIE Administration Insulin Glargine 40 units 01/30/22 22:00 02/07/22 22:08 Insulin Glargine 100 Units/Ml SUB-Q 40 units QHS TIFFANIE Administration Insulin Human Lispro 0 unit 01/30/22 16:30 02/08/22 16:47 Insulin Lispro 100 Unit/Ml SUB-Q 6 unit ACHS TIFFANIE Administration Protocol Losartan Potassium 50 mg 01/30/22 12:00 02/08/22 09:34 Losartan 50 Mg Tab PO Not Given QDAY TIFFANIE Quetiapine Fumarate 50 mg 01/30/22 22:00 02/08/22 09:25 Quetiapine 25 Mg Tab PO 50 mg BID TIFFANIE Administration Tamsulosin HCl 0.8 mg 01/30/22 22:00 02/07/22 21:36 Tamsulosin 0.4 Mg Cap PO 0.8 mg HS TIFFANIE Administration Nutrition/Malnutrition Assess - Dietary Evaluation Nutrition/Malnutrition Findings: Nutrition Notes Start: 02/06/22 11:26 Freq: Status: Active Protocol: Document 02/06/22 11:26 JAMAR (Rec: 02/06/22 11:28 [id number]) Nutrition Notes Need for Assessment generated from: LOS Initial or Follow up Brief Note Current Diet Cardiac/Consistent CHO Height 5 ft 8 in Weight 80 kg [place] Body Weight (kg) 70.00 BMI 26.8 Weight Status Appropriate Subjective/Other Information Pt screened for LOS. He has consumed 100% of meals since admission. Percent of energy/protein needs met: 100% energy and pro Current % PO Good (75-100%) Minimum of two criteria No Is patient on ventilator? No Is Patient Ambulatory and/or Out of Bed Yes REE-([facility]-ambulatory/OOB) [ 1962.350 NUTR.[id number]] [facility] Additional Notes Pro needs 1-1.2g/k-96g/ day Fluid needs 1ml/kcal Nutrition Intervention Revisit per MD consult or patient Sign Off request:
--- NOTE | 2022-02-08 18:53 | Progress Note ---
Assessment and Plan - Patient Problems (1) Vascular dementia with behavioral disturbance Current Visit: Yes Status: Acute Plan to address problem: Verbal prompting, verbal redirection, benzodiazepine therapy as clinically indicated. (2) Cerebral atherosclerosis Current Visit: Yes Status: Acute Plan to address problem: Antiplatelet therapy as clinically indicated, supportive care. (3) Hypertension Current Visit: Yes Status: Acute Qualifiers: Hypertension type: primary hypertension Qualified Code(s): I10 - Essential (primary) hypertension Plan to address problem: Monitor blood pressure every shift, continue medical management. (4) Diabetes Current Visit: Yes Status: Acute Plan to address problem: Consistent carbohydrate diet, Accu-Chek, insulin protocol, hypoglycemia protocol. (5) Advance care planning Current Visit: Yes Status: Acute Plan to address problem: Disease education done, care plan discussed, diagnoses discussed, prognosis discussed, +30 minutes. History Interval history: 76 YO Male Vascular Dementia with Behavioral Disturbance, Cerebral Athe rosclerosis, DM, HTN, Encephalopathy admitted to [facility] for psychiatric stabilization. Consult placed by Dr. Zhang for medical management. Patient seen and evaluated in the recreation room. Patient resting comfortably. No reported nursing events. Patient exhibits diminished cognition and aphasia. Patient remains at baseline level of cognition and function. Hospitalist Physical - Constitutional Vitals: Temp Pulse Resp BP Pulse Ox 97.8 F 92 H 18 152/81 97 02/08/22 18:28 02/08/22 18:28 02/08/22 18:28 02/08/22 18:28 02/08/22 18:28 General appearance: Present: no acute distress - EENT Eyes: Present: PERRL ENT: hearing decreased - Neck Neck: Present: supple - Respiratory Respiratory effort: normal Respiratory: bilateral: CTA - Cardiovascular Rhythm: regular Heart Sounds: Present: S1 & S2 - Extremities Extremities: no ischemia Peripheral Pulses: within normal limits - Abdominal General gastrointestinal: soft, non-tender, non-distended - Integumentary Integumentary: Present: clear, dry - Psychiatric Psychiatric: cooperative - Neurologic Neurologic: CNII-XII intact Results - Labs CBC & Chem 7: 01/30/22 09:02 01/30/22 09:02 Labs: Laboratory Last Values WBC 5.7 K/mm3 (4.5-11.0) 01/30/22 09:02 RBC 4.87 M/mm3 (3.65-5.03) 01/30/22 09:02 Hgb 13.5 gm/dl (11.8-15.2) 01/30/22 09:02 Hct 41.0 % (35.5-45.6) 01/30/22 09:02 MCV 84 fl (84-94) 01/30/22 09:02 MCH 28 pg (28-32) 01/30/22 09:02 MCHC 33 % (32-34) 01/30/22 09:02 RDW 14.2 % (13.2-15.2) 01/30/22 09:02 Plt Count 116 K/mm3 (140-440) L 01/30/22 09:02 Lymph % (Auto) 26.8 % (13.4-35.0) 01/30/22 09:02 [place] % (Auto) 10.4 % (0.0-7.3) H 01/30/22 09:02 Eos % (Auto) 1.6 % (0.0-4.3) 01/30/22 09:02 Baso % (Auto) 0.5 % (0.0-1.8) 01/30/22 09:02 Lymph # (Auto) 1.5 K/mm3 (1.2-5.4) 01/30/22 09:02 [place] # (Auto) 0.6 K/mm3 (0.0-0.8) 01/30/22 09:02 Eos # (Auto) 0.1 K/mm3 (0.0-0.4) 01/30/22 09:02 Baso # (Auto) 0.0 K/mm3 (0.0-0.1) 01/30/22 09:02 Seg Neutrophils % 60.7 % (40.0-70.0) 01/30/22 09:02 Seg Neutrophils # 3.4 K/mm3 (1.8-7.7) 01/30/22 09:02 Sodium 136 mmol/L (137-145) L 01/30/22 09:02 Potassium 4.2 mmol/L (3.6-5.0) 01/30/22 09:02 Chloride 102.6 mmol/L (98-107) 01/30/22 09:02 Carbon Dioxide 22 mmol/L (22-30) 01/30/22 09:02 Anion Gap 16 mmol/L 01/30/22 09:02 BUN 16 mg/dL (9-20) 01/30/22 09:02 Creatinine 1.2 mg/dL (0.8-1.3) 01/30/22 09:02 Estimated GFR > 60 ml/min 01/30/22 09:02 BUN/Creatinine Ratio 13 % 01/30/22 09:02 Glucose 243 mg/dL (75-100) H 01/30/22 09:02 POC Glucose 352 mg/dL (70-105) H 02/08/22 18:46 Hemoglobin A1c 8.9 % (4-6) H 01/30/22 09:02 Calcium 9.4 mg/dL (8.4-10.2) 01/30/22 09:02 Total Bilirubin 0.50 mg/dL (0.1-1.2) 01/30/22 09:02 AST 17 units/L (5-40) 01/30/22 09:02 ALT 16 units/L (7-56) 01/30/22 09:02 Alkaline Phosphatase 89 units/L (35-129) 01/30/22 09:02 Total Protein 7.6 g/dL (6.3-8.2) 01/30/22 09:02 Albumin 4.1 g/dL (3.9-5) 01/30/22 09:02 Albumin/Globulin Ratio 1.2 % 01/30/22 09:02 Triglycerides 76 mg/dL (2-149) 01/30/22 09:02 Cholesterol 100 mg/dL (50-199) 01/30/22 09:02 LDL Cholesterol Direct 38 mg/dL (50-130) L 01/30/22 09:02 HDL Cholesterol 50 mg/dL (40-59) 01/30/22 09:02 Cholesterol/HDL Ratio 2.00 % 01/30/22 09:02 TSH 1.020 mlU/mL (0.270-4.200) 01/30/22 09:02 Hepatitis A IgM Ab Non-reactive (NonReactive) 01/30/22: Hep Bs Antigen Non-reactive (Negative) 01/30/22: Hep B Core IgM Ab Non-reactive (NonReactive) 01/30/22 09: Hepatitis C Antibody Non-reactive (NonReactive) 01/30/22 09:02 Manuel/IV: Voiding Method Toilet Active Medications - Current Medications Current Medications: Generic Name Dose Route Start Last Admin Trade Name Freq PRN Reason Stop Dose Admin Albuterol 2.5 mg 01/30/22 11:23 Albuterol 2.5 Mg/3 Ml Nebu IH Q4HRT PRN Shortness Of Breath Amlodipine Besylate 5 mg 01/30/22 12:00 02/08/22 09:34 Amlodipine 5 Mg Tab PO Not Given DAILY TIFFANIE Atorvastatin Calcium 40 mg 01/30/22 22:00 02/07/22 21:36 Atorvastatin 40 Mg Tab PO 40 mg QHS TIFFANIE Administration Clopidogrel Bisulfate 75 mg 01/30/22 12:00 02/08/22 09:25 Clopidogrel 75 Mg Tab PO 75 mg QDAY TIFFANIE Administration Dextrose 50 ml 01/30/22 15:15 Dextrose 50% In Water (25gm) 50 Ml Syringe IV Q30MIN PRN Hypoglycemia Protocol Docusate Sodium 100 mg 01/30/22 12:00 02/08/22 09:24 Docusate Sodium 100 Mg Cap PO 100 mg BID TIFFANIE Administration Donepezil HCl 5 mg 01/30/22 22:00 02/07/22 21:35 Donepezil 5 Mg Tab PO 5 mg HS TIFFANIE Administration Fluoxetine HCl 30 mg 01/31/22 10:00 02/08/22 09:25 Fluoxetine 10 Mg Tab PO 30 mg QDAY TIFFANIE Administration Gabapentin 200 mg 01/30/22 14:00 02/08/22 13:22 Gabapentin 100 Mg Cap PO 200 mg TID TIFFANIE Administration Insulin Glargine 40 units 01/30/22 22:00 02/07/22 22:08 Insulin Glargine 100 Units/Ml SUB-Q 40 units QHS TIFFANIE Administration Insulin Human Lispro 0 unit 01/30/22 16:30 02/08/22 16:47 Insulin Lispro 100 Unit/Ml SUB-Q 6 unit ACHS TIFFANIE Administration Protocol Losartan Potassium 50 mg 01/30/22 12:00 02/08/22 09:34 Losartan 50 Mg Tab PO Not Given QDAY TIFFANIE Quetiapine Fumarate 50 mg 01/30/22 22:00 02/08/22 09:25 Quetiapine 25 Mg Tab PO 50 mg BID TIFFANIE Administration Tamsulosin HCl 0.8 mg 01/30/22 22:00 02/07/22 21:36 Tamsulosin 0.4 Mg Cap PO 0.8 mg HS TIFFANIE Administration Nutrition/Malnutrition Assess - Dietary Evaluation Nutrition/Malnutrition Findings: Nutrition Notes Start: 02/06/22 11:26 Freq: Status: Active Protocol: Document 02/06/22 11:26 JAMAR (Rec: 02/06/22 11:28 [facility] [id number]) Nutrition Notes Need for Assessment generated from: LOS Initial or Follow up Brief Note Current Diet Cardiac/Consistent CHO Height 5 ft 8 in Weight 80 kg [place] Body Weight (kg) 70.00 BMI 26.8 Weight Status Appropriate Subjective/Other Information Pt screened for LOS. He has consumed 100% of meals since admission. Percent of energy/protein needs met: 100% energy and pro Current % PO Good (75-100%) Minimum of two criteria No Is patient on ventilator? No Is Patient Ambulatory and/or Out of Bed Yes REE-([place]-ambulatory/OOB) [ 1962.350 NUTR.MSJOOB] [facility] Additional Notes Pro needs 1-1.2g/k-96g/ day Fluid needs 1ml/kcal Nutrition Intervention Revisit per MD consult or patient Sign Off request:
[2022-02-08] MEDS: TAMSULOSIN 0.4 MG CAP PO SCH (21:41)
[2022-02-08] MEDS: DONEPEZIL 5 MG TAB PO SCH (21:41)
[2022-02-08] MEDS: INSULIN GLARGINE 100 UNITS/ML SUB-Q SCH (23:05)
--- NOTE | 2022-02-09 09:08 | Progress Note ---
Subjective Date of service: 02/09/22 Principal diagnosis: Dementia w/behavioral disturbance Subjective Comment: 02/09: The patient was seen in his room this morning. He is calm and cooperative. He continues to be confused. Increase Seroquel to 100mg po QHS. 02/08:The patient was seen in his room this morning. The patient is confused " they're talking about me going back to school. " No changes made. 02/07: The patient was seen today. The patient is tangential and confused. " I would like to call the film printer; I'm trying to get home." 02/06:The patient was seen today. He is calm and cooperative. the patient cont inues to present with confusion " I still want to speak with the police." he denies suicidal/homicidal ideation. No changes made today. 02/05: The patient was seen today. He is sitting in the dayroom eating breakfast. He is calm and cooperative. The patient is confused, but pleasant. He says he slept good. The patient says "I'm hoping to go home" he then laughs. He denies SI/HI or hallucinations. 02/04 The patient was seen today. He is calm and cooperative. It's difficult for him to articulate his thoughts. He did say he's feels okay and slept fine. 02/03 The patient was seen today. He has poor insight. He is calm and cooperative. He is confused but answers some simple questions. He says "I have a hard time saying what I want to say." The patient says "I thought I was going home." He could not articulate how he was feeling. 02/02 The patient was seen today. He is a little less confused today. He says he's doing okay. The patient says "I thought I was going home today." He denies SI/HI or hallucinations. He says he slept okay. 02/01 The patient was seen today. He is confused and unable to engage in the evaluation. He is talking nonsensically. He says "I don't know who moved me here." He then says "it was supposed to been three numbers." 01/31 The patient was seen today. He is confused and has poor insight. He says "they woke up with me last night." He's unable to engage in the evaluation due to his insight. REVIEW OF SYSTEMS MENTAL STATUS EXAMINATION Diagnoses: Dementia with behavioral disturbances Treatment Plan: Patient admitted for inpatient psychiatric evaluation, medication adjustment and close monitoring The patient's behavior, mood, sleep and appetite will be closely monitored. Patient enrolled in individual and group therapeutic sessions and encouraged to attend. Patient provided with a safe and structured environment. Patient's physical health needs will be addressed by the Hospitalist. Hospitalist Consulted Labs including CBC, CMP, Lipid profile and Hemoglobin A1C levels ordered for baseline reference Social Assessment will be completed and the Software Licensing Specialist will work with patient and family to ensure a suitable and safe disposition Medication adjustment will be made as clinically indicated No changes made today. Usual Wellness Jainism/Preservation: - Start Trazodone 50 mg po QHS & 50 mg po QHS PRN between 10 PM & 2 AM for insomnia - Start Melatonin 5 mg po QHS to promote circadian rhythm The patient agreed on the treatment plan, understood the risk, benefit, alternative treatment, potential consequence of no treatment, and gave informed consent. Estimated days: 7 Medications and Allergies Medications and Allergies Allergies Allergy/AdvReac Type Severity Reaction Status Date / Time No Known Allergies Allergy Verified 01/29/22 22:41 Home Medications Medication Instructions Recorded Confirmed Last Taken Type Albuterol Sulfate [Proair 90 mcg IH BID PRN 01/30/22 01/30/22 Unknown History Respiclick] Apixaban [Eliquis] 5 mg PO BID 01/30/22 01/30/22 Unknown History AtorvaSTATin [Lipitor] 40 mg PO QHS 01/30/22 01/30/22 Unknown History Clopidogrel [Plavix] 75 mg PO QDAY 01/30/22 01/30/22 Unknown History Docusate Sodium [Colace] 100 mg PO BID 01/30/22 01/30/22 Unknown History FLUoxetine [PROzac] 20 mg PO QDAY 01/30/22 01/30/22 Unknown History Gabapentin 200 mg PO TID 01/30/22 01/30/22 Unknown History Insulin Degludec (Nf) [Tresiba 40 units SQ DAILY 01/30/22 01/30/22 Unknown History Flextouch U-100 (Nf)] Losartan [Cozaar] 50 mg PO QDAY 01/30/22 01/30/22 Unknown History Quetiapine Fumarate [SEROquel] 50 mg PO BID 01/30/22 01/30/22 Unknown History Tamsulosin [Flomax] 0.8 mg PO HS 01/30/22 01/30/22 Unknown History amLODIPine [Norvasc] 5 mg PO DAILY 01/30/22 01/30/22 Unknown History donepeziL [Aricept] 5 mg PO HS 01/30/22 01/30/22 Unknown History Active Meds: Active Medications Albuterol (Albuterol 2.5 Mg/3 Ml Nebu) 2.5 mg IH Q4HRT PRN PRN Reason: Shortness Of Breath Amlodipine Besylate (Amlodipine 5 Mg Tab) 5 mg PO DAILY [facility] Last Admin: 02/08/22 09:34 Dose: Not Given Atorvastatin Calcium (Atorvastatin 40 Mg Tab) 40 mg PO QHS [facility] Last Admin: 02/08/22 21:41 Dose: 40 mg Clopidogrel Bisulfate (Clopidogrel 75 Mg Tab) 75 mg PO QDAY [facility] Last Admin: 02/08/22 09:25 Dose: 75 mg Dextrose (Dextrose 50% In Water (25gm) 50 Ml Syringe) 50 ml IV Q30MIN PRN; Protocol PRN Reason: Hypoglycemia Docusate Sodium (Docusate Sodium 100 Mg Cap) 100 mg PO BID [facility] Last Admin: 02/08/22 21:42 Dose: 100 mg Donepezil HCl (Donepezil 5 Mg Tab) 5 mg PO [facility] Last Admin: 02/08/22 21:41 Dose: 5 mg Fluoxetine HCl (Fluoxetine 10 Mg Tab) 30 mg PO QDAY [facility] Last Admin: 02/08/22 09:25 Dose: 30 mg Gabapentin (Gabapentin 100 Mg Cap) 200 mg PO TID [facility] Last Admin: 02/08/22 20:52 Dose: 200 mg Insulin Glargine (Insulin Glargine 100 Units/Ml) 40 units SUB-Q QHS [facility] Last Admin: 02/08/22 23:05 Dose: 40 units Insulin Human Lispro (Insulin Lispro 100 Unit/Ml) 0 unit SUB-Q ACHS [facility]; Protocol Last Admin: 02/08/22 23:06 Dose: 8 unit Losartan Potassium (Losartan 50 Mg Tab) 50 mg PO QDAY [facility] Last Admin: 02/08/22 09:34 Dose: Not Given Quetiapine Fumarate (Quetiapine 25 Mg Tab) 50 mg PO BID [facility] Last Admin: 02/08/22 21:42 Dose: 50 mg Tamsulosin HCl (Tamsulosin 0.4 Mg Cap) 0.8 mg PO HS [facility] Last Admin: 02/08/22 21:41 Dose: 0.8 mg Results - Results Labs/Vitals: Laboratory Last Values WBC 5.7 K/mm3 (4.5-11.0) 01/30/22 09:02 RBC 4.87 M/mm3 (3.65-5.03) 01/30/22 09:02 Hgb 13.5 gm/dl (11.8-15.2) 01/30/22 09:02 Hct 41.0 % (35.5-45.6) 01/30/22 09:02 MCV 84 fl (84-94) 01/30/22 09:02 MCH 28 pg (28-32) 01/30/22 09:02 MCHC 33 % (32-34) 01/30/22 09:02 RDW 14.2 % (13.2-15.2) 01/30/22 09:02 Plt Count 116 K/mm3 (140-440) L 01/30/22 09:02 Lymph % (Auto) 26.8 % (13.4-35.0) 01/30/22 09:02 [place] % (Auto) 10.4 % (0.0-7.3) H 01/30/22 09:02 Eos % (Auto) 1.6 % (0.0-4.3) 01/30/22 09:02 Baso % (Auto) 0.5 % (0.0-1.8) 01/30/22 09:02 Lymph # (Auto) 1.5 K/mm3 (1.2-5.4) 01/30/22 09:02 [place] # (Auto) 0.6 K/mm3 (0.0-0.8) 01/30/22 09:02 Eos # (Auto) 0.1 K/mm3 (0.0-0.4) 01/30/22 09:02 Baso # (Auto) 0.0 K/mm3 (0.0-0.1) 01/30/22 09:02 Seg Neutrophils % 60.7 % (40.0-70.0) 01/30/22 09:02 Seg Neutrophils # 3.4 K/mm3 (1.8-7.7) 01/30/22 09:02 Sodium 136 mmol/L (137-145) L 01/30/22 09:02 Potassium 4.2 mmol/L (3.6-5.0) 01/30/22 09:02 Chloride 102.6 mmol/L (98-107) 01/30/22 09:02 Carbon Dioxide 22 mmol/L (22-30) 01/30/22 09:02 Anion Gap 16 mmol/L 01/30/22 09:02 BUN 16 mg/dL (9-20) 01/30/22 09:02 Creatinine 1.2 mg/dL (0.8-1.3) 01/30/22 09:02 Estimated GFR > 60 ml/min 01/30/22 09:02 BUN/Creatinine Ratio 13 % 01/30/22 09:02 Glucose 243 mg/dL (75-100) H 01/30/22 09:02 POC Glucose 154 mg/dL (70-105) H 02/09/22 06:51 Hemoglobin A1c 8.9 % (4-6) H 01/30/22 09:02 Calcium 9.4 mg/dL (8.4-10.2) 01/30/22 09:02 Total Bilirubin 0.50 mg/dL (0.1-1.2) 01/30/22 09:02 AST 17 units/L (5-40) 01/30/22 09:02 ALT 16 units/L (7-56) 01/30/22 09:02 Alkaline Phosphatase 89 units/L (35-129) 01/30/22 09:02 Total Protein 7.6 g/dL (6.3-8.2) 01/30/22 09:02 Albumin 4.1 g/dL (3.9-5) 01/30/22 09:02 Albumin/Globulin Ratio 1.2 % 01/30/22 09:02 Triglycerides 76 mg/dL (2-149) 01/30/22 09:02 Cholesterol 100 mg/dL (50-199) 01/30/22 09:02 LDL Cholesterol Direct 38 mg/dL (50-130) L 01/30/22 09:02 HDL Cholesterol 50 mg/dL (40-59) 01/30/22 09:02 Cholesterol/HDL Ratio 2.00 % 01/30/22 09:02 TSH 1.020 mlU/mL (0.270-4.200) 01/30/22 09:02 Hepatitis A IgM Ab Non-reactive (NonReactive) 01/30/22 09:02 Hep Bs Antigen Non-reactive (Negative) 01/30/22 09:02 Hep B Core IgM Ab Non-reactive (NonReactive) 01/30/22 09:02 Hepatitis C Antibody Non-reactive (NonReactive) 01/30/22 09:02 Last Vital Signs Temp 98.3 F 02/09/22 06:38 Pulse 94 H 02/09/22 06:38 Resp 18 02/09/22 06:38 BP 131/84 02/09/22 06:38 Pulse Ox 97 02/09/22 06:38
[2022-02-09] MEDS: INSULIN LISPRO 100 UNIT/ML SUB-Q SCH ×4 (09:11→22:34)
[2022-02-09] MEDS: GABAPENTIN 100 MG CAP PO SCH ×3 (09:50→21:46)
[2022-02-09] MEDS: QUEtiapine 25 MG TAB PO SCH (10:10)
[2022-02-09] MEDS: amLODIPine 5 MG TAB PO SCH (10:10)
[2022-02-09] MEDS: LOSARTAN 50 MG TAB PO SCH (10:10)
[2022-02-09] MEDS: DOCUSATE SODIUM 100 MG CAP PO SCH ×2 (10:10→21:49)
[2022-02-09] MEDS: FLUoxetine 10 MG TAB PO SCH (10:10)
[2022-02-09] MEDS: CLOPIDOGREL 75 MG TAB PO SCH (10:10)
[2022-02-09] MEDS: INSULIN GLARGINE 100 UNITS/ML SUB-Q SCH (21:46)
[2022-02-09] MEDS: DONEPEZIL 5 MG TAB PO SCH (21:47)
[2022-02-09] MEDS: TAMSULOSIN 0.4 MG CAP PO SCH (21:48)
[2022-02-09] MEDS: QUEtiapine 100 MG TAB PO SCH (21:50)
--- NOTE | 2022-02-10 07:58 | Progress Note ---
Assessment and Plan Assessment and Plan - Patient Problems (1) Vascular dementia with behavioral disturbance Current Visit: Yes Status: Acute Plan to address problem: Verbal prompting, verbal redirection, benzodiazepine therapy as clinically indicated. (2) Cerebral atherosclerosis Current Visit: Yes Status: Acute Plan to address problem: Antiplatelet therapy as clinically indicated, supportive care. (3) Hypertension Current Visit: Yes Status: Acute Qualifiers: Hypertension type: primary hypertension Qualified Code(s): I10 - Essential (primary) hypertension Plan to address problem: Monitor blood pressure every shift, continue medical management. (4) Diabetes Current Visit: Yes Status: Acute Plan to address problem: Consistent carbohydrate diet, Accu-Chek, insulin protocol, hypoglycemia protocol. (5) Advance care planning Current Visit: Yes Status: Acute Plan to address problem: Disease education done, care plan discussed, diagnoses discussed, prognosis discussed, +30 minutes. Subjective Date of service: 02/09/22 Principal diagnosis: Dementia w/behavioral disturbance Interval history: History Interval history: 76 YO Male Vascular Dementia with Behavioral Disturbance, Cerebral Atherosclerosis, DM, HTN, Encephalopathy admitted to [facility] for psychiatric stabilization. Consult placed by Dr. Zhang for medical management. Patient seen and evaluated in the recreation room. Patient resting comfortably. No reported nursing events. Patient exhibits diminished cognition and aphasia. Patient remains at baseline level of cognition and function. Objective - Constitutional General appearance: Present: no acute distress, well-nourished - EENT Eyes: PERRL, EOM intact ENT: hearing intact, clear oral mucosa Ears: bilateral: normal - Neck Neck: supple, normal ROM - Respiratory Respiratory effort: normal Respiratory: bilateral: CTA - Breasts Breasts: normal - Cardiovascular Rhythm: regular Heart Sounds: Present: S1 & S2. Absent: gallop, rub Extremities: pulses intact, No edema, normal color, Full ROM - Gastrointestinal General gastrointestinal: Present: soft, non-tender, non-distended, normal bowel sounds - Genitourinary Male genitourinary: normal - Integumentary Integumentary: clear, warm, dry - Musculoskeletal Musculoskeletal: 1, strength equal bilaterally - Neurologic Neurologic: moves all extremities - Psychiatric Psychiatric: memory intact, appropriate mood/affect, intact judgment & insight - Labs CBC & Chem 7: 01/30/22 09:02 01/30/22 09:02 Labs: Abnormal lab results 05/02/09/22 02/09/22 Range/Units 11:33 16:26 19:41 POC Glucose 270 H 244 H 327 H (70-105) mg/dL 02/10/22 Range/Units 06:20 POC Glucose 159 H (70-105) mg/dL
[2022-02-10] MEDS: GABAPENTIN 100 MG CAP PO SCH ×3 (08:29→22:26)
[2022-02-10] MEDS: INSULIN LISPRO 100 UNIT/ML SUB-Q SCH ×4 (08:41→22:35)
[2022-02-10] MEDS: amLODIPine 5 MG TAB PO SCH (09:16)
[2022-02-10] MEDS: LOSARTAN 50 MG TAB PO SCH (09:17)
[2022-02-10] MEDS: DOCUSATE SODIUM 100 MG CAP PO SCH ×2 (09:17→22:25)
[2022-02-10] MEDS: CLOPIDOGREL 75 MG TAB PO SCH (09:18)
[2022-02-10] MEDS: FLUoxetine 10 MG TAB PO SCH (09:18)
[2022-02-10] MEDS: QUEtiapine 25 MG TAB PO SCH (09:19)
--- NOTE | 2022-02-10 09:57 | Progress Note ---
Subjective Date of service: 02/10/22 Principal diagnosis: Dementia w/behavioral disturbance Subjective Comment: 02/10:The patient was seen in his room this morning.He is calm and cooperative.He continues to be confused and hard to understand. No changes made today. 02/09: The patient was seen in his room this morning. He is calm and cooperative. He continues to be confused. Increase Seroquel to 100mg po QHS. 02/08:The patient was seen in his room this morning. The patient is confused " they're talking about me going back to school. " No changes made. 02/07: The patient was seen today. The patient is tangential and confused. " I would like to call the greens planter; I'm trying to get home." 02/06:The patient was seen today. He is calm and cooperative. the patient continues to present with confusion " I still want to speak with the police." he denies suicidal/homicidal ideation. No changes made today. 02/05: The patient was seen today. He is sitting in the dayroom eating breakfast. He is calm and cooperative. The patient is confused, but pleasant. He says he slept good. The patient says "I'm hoping to go home" he then laughs. He denies SI/HI or hallucinations. 02/04 The patient was seen today. He is calm and cooperative. It's difficult for him to articulate his thoughts. He did say he's feels okay and slept fine. 02/03 The patient was seen today. He has poor insight. He is calm and cooperative. He is confused but answers some simple questions. He says "I have a hard time saying what I want to say." The patient says "I thought I was going home." He could not articulate how he was feeling. 02/02 The patient was seen today. He is a little less confused today. He says he's doing okay. The patient says "I thought I was going home today." He denies SI/HI or hallucinations. He says he slept okay. 02/01 The patient was seen today. He is confused and unable to engage in the evaluation. He is talking nonsensically. He says "I don't know who moved me here." He then says "it was supposed to been three numbers." 01/31 The patient was seen today. He is confused and has poor insight. He says "they woke up with me last night." He's unable to engage in the evaluation due to his insight. REVIEW OF SYSTEMS MENTAL STATUS EXAMINATION Diagnoses: Dementia with behavioral disturbances Treatment Plan: Patient admitted for inpatient psychiatric evaluation, medication adjustment and close monitoring The patient's behavior, mood, sleep and appetite will be closely monitored. Patient enrolled in individual and group therapeutic sessions and encouraged to attend. Patient provided with a safe and structured environment. Patient's physical health needs will be addressed by the Hospitalist. Hospitalist Consulted Labs including CBC, CMP, Lipid profile and Hemoglobin A1C levels ordered for baseline reference Social Assessment will be completed and the City Driver will work with patient and family to ensure a suitable and safe disposition Medication adjustment will be made as clinically indicated No changes made today. Usual Wellness Jewish/Preservation: - Start Trazodone 50 mg po QHS & 50 mg po QHS PRN between 10 PM & 2 AM for insomnia - Start Melatonin 5 mg po QHS to promote circadian rhythm The patient agreed on the treatment plan, understood the risk, benefit, alternative treatment, potential consequence of no treatment, and gave informed consent. Estimated days: 7 Medications and Allergies Medications and Allergies Allergies Allergy/AdvReac Type Severity Reaction Status Date / Time No Known Allergies Allergy Verified 01/29/22 22:41 Home Medications Medication Instructions Recorded Confirmed Last Taken Type Albuterol Sulfate [Proair 90 mcg IH BID PRN 01/30/22 01/30/22 Unknown History Respiclick] Apixaban [Eliquis] 5 mg PO BID 01/30/22 01/30/22 Unknown History AtorvaSTATin [Lipitor] 40 mg PO QHS 01/30/22 01/30/22 Unknown History Clopidogrel [Plavix] 75 mg PO QDAY 01/30/22 01/30/22 Unknown History Docusate Sodium [Colace] 100 mg PO BID 01/30/22 01/30/22 Unknown History FLUoxetine [PROzac] 20 mg PO QDAY 01/30/22 01/30/22 Unknown History Gabapentin 200 mg PO TID 01/30/22 01/30/22 Unknown History Insulin Degludec (Nf) [Tresiba 40 units SQ DAILY 01/30/22 01/30/22 Unknown History Flextouch U-100 (Nf)] Losartan [Cozaar] 50 mg PO QDAY 01/30/22 01/30/22 Unknown History Quetiapine Fumarate [SEROquel] 50 mg PO BID 01/30/22 01/30/22 Unknown History Tamsulosin [Flomax] 0.8 mg PO 01/30/22 01/30/22 Unknown History amLODIPine [Norvasc] 5 mg PO DAILY 01/30/22 01/30/22 Unknown History donepeziL [Aricept] 5 mg PO HS 01/30/22 01/30/22 Unknown History Active Meds: Active Medications Albuterol (Albuterol 2.5 Mg/3 Ml Nebu) 2.5 mg IH Q4HRT PRN PRN Reason: Shortness Of Breath Amlodipine Besylate (Amlodipine 5 Mg Tab) 5 mg PO DAILY [facility] Last Admin: 02/10/22 09:16 Dose: 5 mg Atorvastatin Calcium (Atorvastatin 40 Mg Tab) 40 mg PO QHS [facility] Last Admin: 02/09/22 21:47 Dose: 40 mg Clopidogrel Bisulfate (Clopidogrel 75 Mg Tab) 75 mg PO QDAY [facility] Last Admin: 02/10/22 09:18 Dose: 75 mg Dextrose (Dextrose 50% In Water (25gm) 50 Ml Syringe) 50 ml IV Q30MIN PRN; Protocol PRN Reason: Hypoglycemia Docusate Sodium (Docusate Sodium 100 Mg Cap) 100 mg PO BID [facility] Last Admin: 02/10/22 09:17 Dose: 100 mg Donepezil HCl (Donepezil 5 Mg Tab) 5 mg PO [facility] Last Admin: 02/09/22 21:47 Dose: 5 mg Fluoxetine HCl (Fluoxetine 10 Mg Tab) 30 mg PO QDAY [facility] Last Admin: 02/10/22 09:18 Dose: 30 mg Gabapentin (Gabapentin 100 Mg Cap) 200 mg PO TID [facility] Last Admin: 02/10/22 08:29 Dose: 200 mg Insulin Glargine (Insulin Glargine 100 Units/Ml) 40 units SUB-Q QHS [facility] Last Admin: 02/09/22 21:46 Dose: 40 units Insulin Human Lispro (Insulin Lispro 100 Unit/Ml) 0 unit SUB-Q [facility]; Protocol Last Admin: 02/10/22 08:41 Dose: 1 unit Losartan Potassium (Losartan 50 Mg Tab) 50 mg PO QDAY [facility] Last Admin: 02/10/22 09:17 Dose: 50 mg Quetiapine Fumarate (Quetiapine 100 Mg Tab) 100 mg PO QHS [facility] Last Admin: 02/09/22 21:50 Dose: 100 mg Quetiapine Fumarate (Quetiapine 25 Mg Tab) 50 mg PO DAILY [facility] Last Admin: 02/10/22 09:19 Dose: 50 mg Tamsulosin HCl (Tamsulosin 0.4 Mg Cap) 0.8 mg PO HS [facility] Last Admin: 02/09/22 21:48 Dose: 0.8 mg Results - Results Labs/Vitals: Laboratory Last Values WBC 5.7 K/mm3 (4.5-11.0) 01/30/22 09:02 RBC 4.87 M/mm3 (3.65-5.03) 01/30/22 09:02 Hgb 13.5 gm/dl (11.8-15.2) 01/30/22 09:02 Hct 41.0 % (35.5-45.6) 01/30/22 09:02 MCV 84 fl (84-94) 01/30/22 09:02 MCH 28 pg (28-32) 01/30/22 09:02 MCHC 33 % (32-34) 01/30/22 09:02 RDW 14.2 % (13.2-15.2) 01/30/22 09:02 Plt Count 116 K/mm3 (140-440) L 01/30/22 09:02 Lymph % (Auto) 26.8 % (13.4-35.0) 01/30/22 09:02 [place] % (Auto) 10.4 % (0.0-7.3) H 01/30/22 09:02 Eos % (Auto) 1.6 % (0.0-4.3) 01/30/22 09:02 Baso % (Auto) 0.5 % (0.0-1.8) 01/30/22 09:02 Lymph # (Auto) 1.5 K/mm3 (1.2-5.4) 01/30/22 09:02 [place] # (Auto) 0.6 K/mm3 (0.0-0.8) 01/30/22 09:02 Eos # (Auto) 0.1 K/mm3 (0.0-0.4) 01/30/22 09:02 Baso # (Auto) 0.0 K/mm3 (0.0-0.1) 01/30/22 09:02 Seg Neutrophils % 60.7 % (40.0-70.0) 01/30/22 09:02 Seg Neutrophils # 3.4 K/mm3 (1.8-7.7) 01/30/22 09:02 Sodium 136 mmol/L (137-145) L 01/30/22 09:02 Potassium 4.2 mmol/L (3.6-5.0) 01/30/22 09:02 Chloride 102.6 mmol/L (98-107) 01/30/22 09:02 Carbon Dioxide 22 mmol/L (22-30) 01/30/22 09:02 Anion Gap 16 mmol/L 01/30/22 09:02 BUN 16 mg/dL (9-20) 01/30/22 09:02 Creatinine 1.2 mg/dL (0.8-1.3) 01/30/22 09:02 Estimated GFR > 60 ml/min 01/30/22 09:02 BUN/Creatinine Ratio 13 % 01/30/22 09:02 Glucose 243 mg/dL (75-100) H 01/30/22 09:02 POC Glucose 159 mg/dL (70-105) H 02/10/22 06:20 Hemoglobin A1c 8.9 % (4-6) H 01/30/22 09:02 Calcium 9.4 mg/dL (8.4-10.2) 01/30/22 09:02 Total Bilirubin 0.50 mg/dL (0.1-1.2) 01/30/22 09:02 AST 17 units/L (5-40) 01/30/22 09:02 ALT 16 units/L (7-56) 01/30/22 09:02 Alkaline Phosphatase 89 units/L (35-129) 01/30/22 09:02 Total Protein 7.6 g/dL (6.3-8.2) 01/30/22 09:02 Albumin 4.1 g/dL (3.9-5) 01/30/22 09:02 Albumin/Globulin Ratio 1.2 % 01/30/22 09:02 Triglycerides 76 mg/dL (2-149) 01/30/22 09:02 Cholesterol 100 mg/dL (50-199) 01/30/22 09:02 LDL Cholesterol Direct 38 mg/dL (50-130) L 01/30/22 09:02 HDL Cholesterol 50 mg/dL (40-59) 01/30/22 09:02 Cholesterol/HDL Ratio 2.00 % 01/30/22 09:02 TSH 1.020 mlU/mL (0.270-4.200) 01/30/22 09:02 Hepatitis A IgM Ab Non-reactive (NonReactive) 01/30/22 09:02 Hep Bs Antigen Non-reactive (Negative) 01/30/22 09:02 Hep B Core IgM Ab Non-reactive (NonReactive) 01/30/22 09:02 Hepatitis C Antibody Non-reactive (NonReactive) 01/30/22 09:02 Last Vital Signs Temp 97.4 F L 02/10/22 08:00 Pulse 76 02/10/22 09:17 Resp 18 02/10/22 08:00 BP 120/71 02/10/22 09:17 Pulse Ox 97 02/10/22 07:25
[2022-02-10] MEDS: DONEPEZIL 5 MG TAB PO SCH (22:25)
[2022-02-10] MEDS: QUEtiapine 100 MG TAB PO SCH (22:25)
[2022-02-10] MEDS: TAMSULOSIN 0.4 MG CAP PO SCH (22:25)
[2022-02-10] MEDS: INSULIN GLARGINE 100 UNITS/ML SUB-Q SCH (22:36)
--- NOTE | 2022-02-11 07:55 | Progress Note ---
Assessment and Plan Assessment and Plan - Patient Problems (1) Vascular dementia with behavioral disturbance Current Visit: Yes Status: Acute Plan to address problem: Verbal prompting, verbal redirection, benzodiazepine therapy as clinically indicated. (2) Cerebral atherosclerosis Current Visit: Yes Status: Acute Plan to address problem: Antiplatelet therapy as clinically indicated, supportive care. (3) Hypertension Current Visit: Yes Status: Acute Qualifiers: Hypertension type: primary hypertension Qualified Code(s): I10 - Essential (primary) hypertension Plan to address problem: Monitor blood pressure every shift, continue medical management. (4) Diabetes Current Visit: Yes Status: Acute Plan to address problem: Consistent carbohydrate diet, Accu-Chek, insulin protocol, hypoglycemia protocol. (5) Advance care planning Current Visit: Yes Status: Acute Plan to address problem: Disease education done, care plan discussed, diagnoses discussed, prognosis discussed, +30 minutes. Subjective Date of service: 02/10/22 Principal diagnosis: Dementia w/behavioral disturbance Interval history: History Interval history: 76 YO Male Vascular Dementia with Behavioral Disturbance, Cerebral Atherosclerosis, DM, HTN, Encephalopathy admitted to [facility] for psychiatric stabilization. Consult placed by Dr. Zhang for medical management. Patient seen and evaluated in the recreation room. Patient resting comfortably. No reported nursing events. Patient exhibits diminished cognition and aphasia. Patient remains at baseline level of cognition and function. Objective - Constitutional Vitals: Vital Signs - 12hr 02/10/22 21:14 Temperature 98.2 F Pulse Rate 80 Respiratory 16 Rate Blood Pressure 125/76 [Left] O2 Sat by Pulse 97 Oximetry General appearance: Present: no acute distress, well-nourished - EENT Eyes: PERRL, EOM intact ENT: hearing intact, clear oral mucosa Ears: bilateral: normal - Neck Neck: supple, normal ROM - Respiratory Respiratory effort: normal Respiratory: bilateral: CTA - Breasts Breasts: normal - Cardiovascular Rhythm: regular Heart Sounds: Present: S1 & S2. Absent: gallop, rub Extremities: pulses intact, No edema, normal color, Full ROM - Gastrointestinal General gastrointestinal: Present: soft, non-tender, non-distended, normal bowel sounds - Genitourinary Male genitourinary: normal - Integumentary Integumentary: clear, warm, dry - Musculoskeletal Musculoskeletal: 1, strength equal bilaterally - Neurologic Neurologic: moves all extremities - Psychiatric Psychiatric: memory intact, appropriate mood/affect, intact judgment & insight - Labs CBC & Chem 7: 01/30/22 09:02 01/30/22 09:02 Labs: Abnormal lab results 02/10/22 02/10/22 02/10/22 Range/Units 11:19 15:55 22:30 POC Glucose 234 H 285 H 282 H (70-105) mg/dL 02/11/22 Range/Units 07:36 POC Glucose 135 H (70-105) mg/dL
[2022-02-11] MEDS: INSULIN LISPRO 100 UNIT/ML SUB-Q SCH ×4 (08:17→21:32)
[2022-02-11] MEDS: QUEtiapine 25 MG TAB PO SCH (09:29)
[2022-02-11] MEDS: GABAPENTIN 100 MG CAP PO SCH ×3 (09:29→20:31)
[2022-02-11] MEDS: CLOPIDOGREL 75 MG TAB PO SCH (09:29)
[2022-02-11] MEDS: FLUoxetine 10 MG TAB PO SCH (09:29)
[2022-02-11] MEDS: DOCUSATE SODIUM 100 MG CAP PO SCH ×2 (09:29→21:31)
--- NOTE | 2022-02-11 10:16 | Progress Note ---
Subjective Date of service: 02/11/22 Principal diagnosis: Dementia w/behavioral disturbance Subjective Comment: 02/11:he patient was seen in his room this morning. He states he could not sleep last night. The patient continues to mumble, difficult to understand. 02/10:The patient was seen in his room this morning.He is calm and cooperative. He continues to be confused and hard to understand. No changes made today. 02/09: The patient was seen in his room this morning. He is calm and cooperative. He continues to be confused. Increase Seroquel to 100mg po QHS. 02/08:The patient was seen in his room this morning. The patient is confused " they're talking about me going back to school. " No changes made. 02/07: The patient was seen today. The patient is tangential and confused. " I would like to call the page makeup system operator; I'm trying to get home." 02/06:The patient was seen today. He is calm and cooperative. the patient continues to present with confusion " I still want to speak with the police." he denies suicidal/homicidal ideation. No changes made today. 02/05: The patient was seen today. He is sitting in the dayroom eating breakf ast. He is calm and cooperative. The patient is confused, but pleasant. He says he slept good. The patient says "I'm hoping to go home" he then laughs. He denies SI/HI or hallucinations. 02/04 The patient was seen today. He is calm and cooperative. It's difficult for him to articulate his thoughts. He did say he's feels okay and slept fine. 02/03 The patient was seen today. He has poor insight. He is calm and cooperative. He is confused but answers some simple questions. He says "I have a hard time saying what I want to say." The patient says "I thought I was going home." He could not articulate how he was feeling. 02/02 The patient was seen today. He is a little less confused today. He says he's doing okay. The patient says "I thought I was going home today." He denies SI/HI or hallucinations. He says he slept okay. 02/01 The patient was seen today. He is confused and unable to engage in the evaluation. He is talking nonsensically. He says "I don't know who moved me here." He then says "it was supposed to been three numbers." 01/31 The patient was seen today. He is confused and has poor insight. He says "they woke up with me last night." He's unable to engage in the evaluation due to his insight. REVIEW OF SYSTEMS MENTAL STATUS EXAMINATION Diagnoses: Dementia with behavioral disturbances Treatment Plan: Patient admitted for inpatient psychiatric evaluation, medication adjustment and close monitoring The patient's behavior, mood, sleep and appetite will be closely monitored. Patient enrolled in individual and group therapeutic sessions and encouraged to attend. Patient provided with a safe and structured environment. Patient's physical health needs will be addressed by the Hospitalist. Hospitalist Consulted Labs including CBC, CMP, Lipid profile and Hemoglobin A1C levels ordered for baseline reference Social Assessment will be completed and the Wheat Combine Driver will work with patient and family to ensure a suitable and safe disposition Medication adjustment will be made as clinically indicated No changes made today. Usual Wellness Evangelical/Preservation: - Start Trazodone 50 mg po QHS & 50 mg po QHS PRN between 10 PM & 2 AM for insomnia - Start Melatonin 5 mg po QHS to promote circadian rhythm The patient agreed on the treatment plan, understood the risk, benefit, alternative treatment, potential consequence of no treatment, and gave informed consent. Estimated days: 7 Medications and Allergies Medications and Allergies Allergies Allergy/AdvReac Type Severity Reaction Status Date / Time No Known Allergies Allergy Verified 01/29/22 22:41 Home Medications Medication Instructions Recorded Confirmed Last Taken Type Albuterol Sulfate [Proair 90 mcg IH BID PRN 01/30/22 01/30/22 Unknown History Respiclick] Apixaban [Eliquis] 5 mg PO BID 01/30/22 01/30/22 Unknown History AtorvaSTATin [Lipitor] 40 mg PO QHS 01/30/22 01/30/22 Unknown History Clopidogrel [Plavix] 75 mg PO QDAY 01/30/22 01/30/22 Unknown History Docusate Sodium [Colace] 100 mg PO BID 01/30/22 01/30/22 Unknown History FLUoxetine [PROzac] 20 mg PO QDAY 01/30/22 01/30/22 Unknown History Gabapentin 200 mg PO TID 01/30/22 01/30/22 Unknown History Insulin Degludec (Nf) [Tresiba 40 units SQ DAILY 01/30/22 01/30/22 Unknown History Flextouch U-100 (Nf)] Losartan [Cozaar] 50 mg PO QDAY 01/30/22 01/30/22 Unknown History Quetiapine Fumarate [SEROquel] 50 mg PO BID 01/30/22 01/30/22 Unknown History Tamsulosin [Flomax] 0.8 mg PO HS 01/30/22 01/30/22 Unknown History amLODIPine [Norvasc] 5 mg PO DAILY 01/30/22 01/30/22 Unknown History donepeziL [Aricept] 5 mg PO HS 01/30/22 01/30/22 Unknown History Active Meds: Active Medications Albuterol (Albuterol 2.5 Mg/3 Ml Nebu) 2.5 mg IH Q4HRT PRN PRN Reason: Shortness Of Breath Amlodipine Besylate (Amlodipine 5 Mg Tab) 5 mg PO DAILY [facility] Last Admin: 02/10/22 09:16 Dose: 5 mg Atorvastatin Calcium (Atorvastatin 40 Mg Tab) 40 mg PO QHS [facility] Last Admin: 02/10/22 22:26 Dose: 40 mg Clopidogrel Bisulfate (Clopidogrel 75 Mg Tab) 75 mg PO QDAY [facility] Last Admin: 02/11/22 09:29 Dose: 75 mg Dextrose (Dextrose 50% In Water (25gm) 50 Ml Syringe) 50 ml IV Q30MIN PRN; Protocol PRN Reason: Hypoglycemia Docusate Sodium (Docusate Sodium 100 Mg Cap) 100 mg PO BID [facility] Last Admin: 02/11/22 09:29 Dose: 100 mg Donepezil HCl (Donepezil 5 Mg Tab) 5 mg PO [facility] Last Admin: 02/10/22 22:25 Dose: 5 mg Fluoxetine HCl (Fluoxetine 10 Mg Tab) 30 mg PO QDAY [facility] Last Admin: 02/11/22 09:29 Dose: 30 mg Gabapentin (Gabapentin 100 Mg Cap) 200 mg PO TID [facility] Last Admin: 02/11/22 09:29 Dose: 200 mg Insulin Glargine (Insulin Glargine 100 Units/Ml) 40 units SUB-Q QHS [facility] Last Admin: 02/10/22 22:36 Dose: 40 units Insulin Human Lispro (Insulin Lispro 100 Unit/Ml) 0 unit SUB-Q ACHS [facility]; Protocol Last Admin: 02/11/22 08:17 Dose: Not Given Losartan Potassium (Losartan 50 Mg Tab) 50 mg PO QDAY [facility] Last Admin: 02/10/22 09:17 Dose: 50 mg Quetiapine Fumarate (Quetiapine 100 Mg Tab) 100 mg PO QHS [facility] Last Admin: 02/10/22 22:25 Dose: 100 mg Quetiapine Fumarate (Quetiapine 25 Mg Tab) 50 mg PO DAILY [facility] Last Admin: 02/11/22 09:29 Dose: 50 mg Tamsulosin HCl (Tamsulosin 0.4 Mg Cap) 0.8 mg PO HS [facility] Last Admin: 02/10/22 22:25 Dose: 0.8 mg Results - Results Labs/Vitals: Laboratory Last Values WBC 5.7 K/mm3 (4.5-11.0) 01/30/22 09:02 RBC 4.87 M/mm3 (3.65-5.03) 01/30/22 09:02 Hgb 13.5 gm/dl (11.8-15.2) 01/30/22 09:02 Hct 41.0 % (35.5-45.6) 01/30/22 09:02 MCV 84 fl (84-94) 01/30/22 09:02 MCH 28 pg (28-32) 01/30/22 09:02 MCHC 33 % (32-34) 01/30/22 09:02 RDW 14.2 % (13.2-15.2) 01/30/22 09:02 Plt Count 116 K/mm3 (140-440) L 01/30/22 09:02 Lymph % (Auto) 26.8 % (13.4-35.0) 01/30/22 09:02 [place] % (Auto) 10.4 % (0.0-7.3) H 01/30/22 09:02 Eos % (Auto) 1.6 % (0.0-4.3) 01/30/22 09:02 Baso % (Auto) 0.5 % (0.0-1.8) 01/30/22 09:02 Lymph # (Auto) 1.5 K/mm3 (1.2-5.4) 01/30/22 09:02 [place] # (Auto) 0.6 K/mm3 (0.0-0.8) 01/30/22 09:02 Eos # (Auto) 0.1 K/mm3 (0.0-0.4) 01/30/22 09:02 Baso # (Auto) 0.0 K/mm3 (0.0-0.1) 01/30/22 09:02 Seg Neutrophils % 60.7 % (40.0-70.0) 01/30/22 09:02 Seg Neutrophils # 3.4 K/mm3 (1.8-7.7) 01/30/22 09:02 Sodium 136 mmol/L (137-145) L 01/30/22 09:02 Potassium 4.2 mmol/L (3.6-5.0) 01/30/22 09:02 Chloride 102.6 mmol/L (98-107) 01/30/22 09:02 Carbon Dioxide 22 mmol/L (22-30) 01/30/22 09:02 Anion Gap 16 mmol/L 01/30/22 09:02 BUN 16 mg/dL (9-20) 01/30/22 09:02 Creatinine 1.2 mg/dL (0.8-1.3) 01/30/22 09:02 Estimated GFR > 60 ml/min 01/30/22 09:02 BUN/Creatinine Ratio 13 % 01/30/22 09:02 Glucose 243 mg/dL (75-100) H 01/30/22 09:02 POC Glucose 135 mg/dL (70-105) H 02/11/22 07:36 Hemoglobin A1c 8.9 % (4-6) H 01/30/22 09:02 Calcium 9.4 mg/dL (8.4-10.2) 01/30/22 09:02 Total Bilirubin 0.50 mg/dL (0.1-1.2) 01/30/22 09:02 AST 17 units/L (5-40) 01/30/22 09:02 ALT 16 units/L (7-56) 01/30/22 09:02 Alkaline Phosphatase 89 units/L (35-129) 01/30/22 09:02 Total Protein 7.6 g/dL (6.3-8.2) 01/30/22 09:02 Albumin 4.1 g/dL (3.9-5) 01/30/22 09:02 Albumin/Globulin Ratio 1.2 % 01/30/22 09:02 Triglycerides 76 mg/dL (2-149) 01/30/22 09:02 Cholesterol 100 mg/dL (50-199) 01/30/22 09:02 LDL Cholesterol Direct 38 mg/dL (50-130) L 01/30/22 09:02 HDL Cholesterol 50 mg/dL (40-59) 01/30/22 09:02 Cholesterol/HDL Ratio 2.00 % 01/30/22 09:02 TSH 1.020 mlU/mL (0.270-4.200) 01/30/22 09:02 Hepatitis A IgM Ab Non-reactive (NonReactive) 01/30/22 09:02 Hep Bs Antigen Non-reactive (Negative) 01/30/22 09:02 Hep B Core IgM Ab Non-reactive (NonReactive) 01/30/22 09:02 Hepatitis C Antibody Non-reactive (NonReactive) 01/30/22 09:02 Last Vital Signs Temp 98.2 F 02/10/22 21:14 Pulse 80 02/10/22 21:14 Resp 16 02/10/22 21:14 BP 125/76 02/10/22 21:14 Pulse Ox 97 02/10/22 21:14
[2022-02-11] MEDS: amLODIPine 5 MG TAB PO SCH (11:33)
[2022-02-11] MEDS: LOSARTAN 50 MG TAB PO SCH (11:33)
[2022-02-11] MEDS: DONEPEZIL 5 MG TAB PO SCH (21:31)
[2022-02-11] MEDS: TAMSULOSIN 0.4 MG CAP PO SCH (21:31)
[2022-02-11] MEDS: QUEtiapine 100 MG TAB PO SCH (21:31)
[2022-02-11] MEDS: INSULIN GLARGINE 100 UNITS/ML SUB-Q SCH (21:32)
[2022-02-12] MEDS: INSULIN LISPRO 100 UNIT/ML SUB-Q SCH ×4 (07:30→21:20)
[2022-02-12] MEDS: LOSARTAN 50 MG TAB PO SCH ×2 (08:44→10:22)
[2022-02-12] MEDS: GABAPENTIN 100 MG CAP PO SCH ×3 (08:44→20:48)
[2022-02-12] MEDS: FLUoxetine 10 MG TAB PO SCH ×2 (08:44→10:23)
[2022-02-12] MEDS: amLODIPine 5 MG TAB PO SCH ×2 (08:45→10:22)
[2022-02-12] MEDS: DOCUSATE SODIUM 100 MG CAP PO SCH ×3 (08:45→21:14)
[2022-02-12] MEDS: QUEtiapine 25 MG TAB PO SCH ×2 (08:45→10:22)
[2022-02-12] MEDS: CLOPIDOGREL 75 MG TAB PO SCH ×2 (08:48→10:22)
--- NOTE | 2022-02-12 09:15 | Progress Note ---
Subjective Date of service: 02/12/22 Principal diagnosis: Dementia w/behavioral disturbance Subjective Comment: 02/12:The patient was seen in his room this morning. He is calm and cooperative. He reports doing well. He continues to have periods of confusion. No changes made. 02/11:The patient was seen in his room this morning. He states he could not sleep last night. The patient continues to mumble, difficult to understand. 02/10:The patient was seen in his room this morning.He is calm and cooperative. He continues to be confused and hard to understand. No changes made today. 02/09: The patient was seen in his room this morning. He is calm and cooperative. He continues to be confused. Increase Seroquel to 100mg po QHS. 02/08:The patient was seen in his room this morning. The patient is confused " they're talking about me going back to school. " No changes made. 02/07: The patient was seen today. The patient is tangential and confused. " I would like to call the inspector balance wheel motion; I'm trying to get home." 02/06:The patient was seen today. He is calm and cooperative. the patient continues to present with confusion " I still want to speak with the police." he denies suicidal/homicidal ideation. No changes made today. 02/05: The patient was seen today. He is sitting in the dayroom eating breakfast. He is calm and cooperative. The patient is confused, but pleasant. He says he slept good. The patient says "I'm hoping to go home" he then laughs. He denies SI/HI or hallucinations. 02/04 The patient was seen today. He is calm and cooperative. It's difficult for him to articulate his thoughts. He did say he's feels okay and slept fine. 02/03 The patient was seen today. He has poor insight. He is calm and cooperative. He is confused but answers some simple questions. He says "I have a hard time saying what I want to say." The patient says "I thought I was going home." He could not articulate how he was feeling. 02/02 The patient was seen today. He is a little less confused today. He says he's doing okay. The patient says "I thought I was going home today." He denies SI/HI or hallucinations. He says he slept okay. 02/01 The patient was seen today. He is confused and unable to engage in the evaluation. He is talking nonsensically. He says "I don't know who moved me here." He then says "it was supposed to been three numbers." 01/31 The patient was seen today. He is confused and has poor insight. He says "they woke up with me last night." He's unable to engage in the evaluation due to his insight. REVIEW OF SYSTEMS MENTAL STATUS EXAMINATION Diagnoses: Dementia with behavioral disturbances Treatment Plan: Patient admitted for inpatient psychiatric evaluation, medication adjustment and close monitoring The patient's behavior, mood, sleep and appetite will be closely monitored. Patient enrolled in individual and group therapeutic sessions and encouraged to attend. Patient provided with a safe and structured environment. Patient's physical health needs will be addressed by the Hospitalist. Hospitalist Consulted Labs including CBC, CMP, Lipid profile and Hemoglobin A1C levels ordered for baseline reference Social Assessment will be completed and the Foundry Melt Supervisor will work with patient and family to ensure a suitable and safe disposition Medication adjustment will be made as clinically indicated No changes made today. Usual Wellness Christian/Preservation: - Start Trazodone 50 mg po QHS & 50 mg po QHS PRN between 10 PM & 2 AM for insomnia - Start Melatonin 5 mg po QHS to promote circadian rhythm The patient agreed on the treatment plan, understood the risk, benefit, alternative treatment, potential consequence of no treatment, and gave informed consent. Estimated days: 7 Medications and Allergies Medications and Allergies Allergies Allergy/AdvReac Type Severity Reaction Status Date / Time No Known Allergies Allergy Verified 01/29/22 22:41 Home Medications Medication Instructions Recorded Confirmed Last Taken Type Albuterol Sulfate [Proair 90 mcg IH BID PRN 01/30/22 01/30/22 Unknown History Respiclick] Apixaban [Eliquis] 5 mg PO BID 01/30/22 01/30/22 Unknown History AtorvaSTATin [Lipitor] 40 mg PO QHS 01/30/22 01/30/22 Unknown History Clopidogrel [Plavix] 75 mg PO QDAY 01/30/22 01/30/22 Unknown History Docusate Sodium [Colace] 100 mg PO BID 01/30/22 01/30/22 Unknown History FLUoxetine [PROzac] 20 mg PO QDAY 01/30/22 01/30/22 Unknown History Gabapentin 200 mg PO TID 01/30/22 01/30/22 Unknown History Insulin Degludec (Nf) [Tresiba 40 units SQ DAILY 01/30/22 01/30/22 Unknown History Flextouch U-100 (Nf)] Losartan [Cozaar] 50 mg PO QDAY 01/30/22 01/30/22 Unknown History Quetiapine Fumarate [SEROquel] 50 mg PO BID 01/30/22 01/30/22 Unknown History Tamsulosin [Flomax] 0.8 mg PO HS 01/30/22 01/30/22 Unknown History amLODIPine [Norvasc] 5 mg PO DAILY 01/30/22 01/30/22 Unknown History donepeziL [Aricept] 5 mg PO HS 01/30/22 01/30/22 Unknown History Active Meds: Active Medications Albuterol (Albuterol 2.5 Mg/3 Ml Nebu) 2.5 mg IH Q4HRT PRN PRN Reason: Shortness Of Breath Amlodipine Besylate (Amlodipine 5 Mg Tab) 5 mg PO DAILY [facility] Last Admin: 02/12/22 08:45 Dose: 5 mg Atorvastatin Calcium (Atorvastatin 40 Mg Tab) 40 mg PO QHS [facility] Last Admin: 02/11/22 21:34 Dose: 40 mg Clopidogrel Bisulfate (Clopidogrel 75 Mg Tab) 75 mg PO QDAY [facility] Last Admin: 02/12/22 08:48 Dose: 75 mg Dextrose (Dextrose 50% In Water (25gm) 50 Ml Syringe) 50 ml IV Q30MIN PRN; Protocol PRN Reason: Hypoglycemia Docusate Sodium (Docusate Sodium 100 Mg Cap) 100 mg PO BID [facility] Last Admin: 02/12/22 08:45 Dose: 100 mg Donepezil HCl (Donepezil 5 Mg Tab) 5 mg PO [facility] Last Admin: 02/11/22 21:31 Dose: 5 mg Fluoxetine HCl (Fluoxetine 10 Mg Tab) 30 mg PO QDAY [facility] Last Admin: 02/12/22 08:44 Dose: 30 mg Gabapentin (Gabapentin 100 Mg Cap) 200 mg PO TID [facility] Last Admin: 02/12/22 08:44 Dose: 200 mg Insulin Glargine (Insulin Glargine 100 Units/Ml) 40 units SUB-Q QHS [facility] Last Admin: 02/11/22 21:32 Dose: 40 units Insulin Human Lispro (Insulin Lispro 100 Unit/Ml) 0 unit SUB-Q [facility]; Protocol Last Admin: 02/12/22 07:30 Dose: Not Given Losartan Potassium (Losartan 50 Mg Tab) 50 mg PO QDAY [facility] Last Admin: 02/12/22 08:44 Dose: 50 mg Quetiapine Fumarate (Quetiapine 100 Mg Tab) 100 mg PO QHS [facility] Last Admin: 02/11/22 21:31 Dose: 100 mg Quetiapine Fumarate (Quetiapine 25 Mg Tab) 50 mg PO DAILY [facility] Last Admin: 02/12/22 08:45 Dose: 50 mg Tamsulosin HCl (Tamsulosin 0.4 Mg Cap) 0.8 mg PO [facility] Last Admin: 02/11/22 21:31 Dose: 0.8 mg Results - Results Labs/Vitals: Laboratory Last Values WBC 5.7 K/mm3 (4.5-11.0) 01/30/22 09:02 RBC 4.87 M/mm3 (3.65-5.03) 01/30/22 09:02 Hgb 13.5 gm/dl (11.8-15.2) 01/30/22 09:02 Hct 41.0 % (35.5-45.6) 01/30/22 09:02 MCV 84 fl (84-94) 01/30/22 09:02 MCH 28 pg (28-32) 01/30/22 09:02 MCHC 33 % (32-34) 01/30/22 09:02 RDW 14.2 % (13.2-15.2) 01/30/22 09:02 Plt Count 116 K/mm3 (140-440) L 01/30/22 09:02 Lymph % (Auto) 26.8 % (13.4-35.0) 01/30/22 09:02 [place] % (Auto) 10.4 % (0.0-7.3) H 01/30/22 09:02 Eos % (Auto) 1.6 % (0.0-4.3) 01/30/22 09:02 Baso % (Auto) 0.5 % (0.0-1.8) 01/30/22 09:02 Lymph # (Auto) 1.5 K/mm3 (1.2-5.4) 01/30/22 09:02 [place] # (Auto) 0.6 K/mm3 (0.0-0.8) 01/30/22 09:02 Eos # (Auto) 0.1 K/mm3 (0.0-0.4) 01/30/22 09:02 Baso # (Auto) 0.0 K/mm3 (0.0-0.1) 01/30/22 09:02 Seg Neutrophils % 60.7 % (40.0-70.0) 01/30/22 09:02 Seg Neutrophils # 3.4 K/mm3 (1.8-7.7) 01/30/22 09:02 Sodium 136 mmol/L (137-145) L 01/30/22 09:02 Potassium 4.2 mmol/L (3.6-5.0) 01/30/22 09:02 Chloride 102.6 mmol/L (98-107) 01/30/22 09:02 Carbon Dioxide 22 mmol/L (22-30) 01/30/22 09:02 Anion Gap 16 mmol/L 01/30/22 09:02 BUN 16 mg/dL (9-20) 01/30/22 09:02 Creatinine 1.2 mg/dL (0.8-1.3) 01/30/22 09:02 Estimated GFR > 60 ml/min 01/30/22 09:02 BUN/Creatinine Ratio 13 % 01/30/22 09:02 Glucose 243 mg/dL (75-100) H 01/30/22 09:02 POC Glucose 101 mg/dL (70-105) 02/12/22 06:07 Hemoglobin A1c 8.9 % (4-6) H 01/30/22 09:02 Calcium 9.4 mg/dL (8.4-10.2) 01/30/22 09:02 Total Bilirubin 0.50 mg/dL (0.1-1.2) 01/30/22 09:02 AST 17 units/L (5-40) 01/30/22 09:02 ALT 16 units/L (7-56) 01/30/22 09:02 Alkaline Phosphatase 89 units/L (35-129) 01/30/22 09:02 Total Protein 7.6 g/dL (6.3-8.2) 01/30/22 09: Albumin 4.1 g/dL (3.9-5) 01/30/22 09:02 Albumin/Globulin Ratio 1.2 % 01/30/22 09:02 Triglycerides 76 mg/dL (2-149) 01/30/22 09: Cholesterol 100 mg/dL (50-199) 01/30/22 09:02 LDL Cholesterol Direct 38 mg/dL (50-130) L 01/30/22 09: HDL Cholesterol 50 mg/dL (40-59) 01/30/22 09:02 Cholesterol/HDL Ratio 2.00 % 01/30/22 09: TSH 1.020 mlU/mL (0.270-4.200) 01/30/22 09:02 Hepatitis A IgM Ab Non-reactive (NonReactive) 01/30/22 09: Hep Bs Antigen Non-reactive (Negative) 01/30/22 09: Hep B Core IgM Ab Non-reactive (NonReactive) 01/30/22 09:02 Hepatitis C Antibody Non-reactive (NonReactive) 01/30/22 09:02 Last Vital Signs Temp 97.6 F 02/12/22 08:38 Pulse 90 02/12/22 08:45 Resp 16 02/12/22 08:38 BP 131/77 02/12/22 08:45 Pulse Ox 98 02/12/22 08:38
--- NOTE | 2022-02-12 19:34 | Progress Note ---
Assessment and Plan Assessment and Plan - Patient Problems (1) Vascular dementia with behavioral disturbance Current Visit: Yes Status: Acute Plan to address problem: Verbal prompting, verbal redirection, benzodiazepine therapy as clinically indicated. (2) Cerebral atherosclerosis Current Visit: Yes Status: Acute Plan to address problem: Antiplatelet therapy as clinically indicated, supportive care. (3) Hypertension Current Visit: Yes Status: Acute Qualifiers: Hypertension type: primary hypertension Qualified Code(s): I10 - Essential (primary) hypertension Plan to address problem: Monitor blood pressure every shift, continue medical management. (4) Diabetes Current Visit: Yes Status: Acute Plan to address problem: Consistent carbohydrate diet, Accu-Chek, insulin protocol, hypoglycemia protocol. (5) Advance care planning Current Visit: Yes Status: Acute Plan to address problem: Disease education done, care plan discussed, diagnoses discussed, prognosis discussed, +30 minutes. Subjective Date of service: 02/11/22 Principal diagnosis: Dementia w/behavioral disturbance Interval history: History Interval history: 76 YO Male Vascular Dementia with Behavioral Disturbance, Cerebral Atherosclerosis, DM, HTN, Encephalopathy admitted to [facility] for psychiatric stabilization. Consult placed by Dr. Zhang for medical management. Patient seen and evaluated in the recreation room. Patient resting comfortably. No reported nursing events. Patient exhibits diminished cognition and aphasia. Patient remains at baseline level of cognition and function. Objective - Constitutional Vitals: Vital Signs - 12hr 02/12/22 02/12/22 02/12/22 08:38 08:44 08:45 Temperature 97.6 F Pulse Rate 90 90 90 Respiratory 16 Rate Blood Pressure 131/77 131/77 131/77 O2 Sat by Pulse 98 Oximetry General appearance: Present: no acute distress, well-nourished - EENT Eyes: PERRL, EOM intact ENT: hearing intact, clear oral mucosa Ears: bilateral: normal - Neck Neck: supple, normal ROM - Respiratory Respiratory effort: normal Respiratory: bilateral: CTA - Breasts Breasts: normal - Cardiovascular Rhythm: regular Heart Sounds: Present: S1 & S2. Absent: gallop, rub Extremities: pulses intact, No edema, normal color, Full ROM - Gastrointestinal General gastrointestinal: Present: soft, non-tender, non-distended, normal bowel sounds - Genitourinary Male genitourinary: normal - Integumentary Integumentary: clear, warm, dry - Musculoskeletal Musculoskeletal: 1, strength equal bilaterally - Neurologic Neurologic: moves all extremities - Psychiatric Psychiatric: memory intact, appropriate mood/affect, intact judgment & insight - Labs CBC & Chem 7: 01/30/22 09:02 01/30/22 09:02 Labs: Abnormal lab results 02/11/22 02/12/22 02/12/22 Range/Units 19:48 11:34 16:08 POC Glucose 200 H 178 H 213 H (70-105) mg/dL
[2022-02-12] MEDS: QUEtiapine 100 MG TAB PO SCH (21:14)
[2022-02-12] MEDS: TAMSULOSIN 0.4 MG CAP PO SCH (21:14)
[2022-02-12] MEDS: DONEPEZIL 5 MG TAB PO SCH (21:14)
[2022-02-12] MEDS: INSULIN GLARGINE 100 UNITS/ML SUB-Q SCH (21:20)
[2022-02-13] MEDS: INSULIN LISPRO 100 UNIT/ML SUB-Q SCH ×4 (08:20→21:22)
[2022-02-13] MEDS: FLUoxetine 10 MG TAB PO SCH (09:10)
[2022-02-13] MEDS: QUEtiapine 25 MG TAB PO SCH (09:10)
[2022-02-13] MEDS: GABAPENTIN 100 MG CAP PO SCH ×3 (09:10→20:28)
[2022-02-13] MEDS: LOSARTAN 50 MG TAB PO SCH (09:11)
[2022-02-13] MEDS: amLODIPine 5 MG TAB PO SCH (09:11)
[2022-02-13] MEDS: CLOPIDOGREL 75 MG TAB PO SCH (09:11)
[2022-02-13] MEDS: DOCUSATE SODIUM 100 MG CAP PO SCH ×2 (09:11→21:21)
--- NOTE | 2022-02-13 10:34 | Progress Note ---
Subjective Date of service: 02/13/22 Principal diagnosis: Dementia w/behavioral disturbance Subjective Comment: 02/13: The patient was seen today. He is pleasantly confused. He does not answer questions appropriately and talks incomprehensibly. Per nurses note, he is calm and compliant with medications. He often presents with confusion. Patient is unable to care for self and requires placement and 24-hr supervision 02/12:The patient was seen in his room this morning. He is calm and cooperative. He reports doing well. He continues to have periods of confusion. No changes made. 02/11:The patient was seen in his room this morning. He states he could not sleep last night. The patient continues to mumble, difficult to understand. 02/10:The patient was seen in his room this morning.He is calm and cooperative. He continues to be confused and hard to understand. No changes made today. 02/09: The patient was seen in his room this morning. He is calm and cooperative. He continues to be confused. Increase Seroquel to 100mg po QHS. 02/08:The patient was seen in his room this morning. The patient is confused " they're talking about me going back to school. " No changes made. 02/07: The patient was seen today. The patient is tangential and confused. " I would like to call the sheriff officer; I'm trying to get home." 02/06:The patient was seen today. He is calm and cooperative. the patient continues to present with confusion " I still want to speak with the police." he denies suicidal/homicidal ideation. No changes made today. 02/05: The patient was seen today. He is sitting in the dayroom eating breakfast. He is calm and cooperative. The patient is confused, but pleasant. He says he slept good. The patient says "I'm hoping to go home" he then laughs. He denies SI/HI or hallucinations. 02/04 The patient was seen today. He is calm and cooperative. It's difficult for him to articulate his thoughts. He did say he's feels okay and slept fine. 02/03 The patient was seen today. He has poor insight. He is calm and cooperative. He is confused but answers some simple questions. He says "I have a hard time saying what I want to say." The patient says "I thought I was going home." He could not articulate how he was feeling. 02/02 The patient was seen today. He is a little less confused today. He says he's doing okay. The patient says "I thought I was going home today." He denies SI/HI or hallucinations. He says he slept okay. 02/01 The patient was seen today. He is confused and unable to engage in the evaluation. He is talking nonsensically. He says "I don't know who moved me here." He then says "it was supposed to been three numbers." 01/31 The patient was seen today. He is confused and has poor insight. He says "they woke up with me last night." He's unable to engage in the evaluation due to his insight. REVIEW OF SYSTEMS MENTAL STATUS EXAMINATION Diagnoses: Dementia with behavioral disturbances Treatment Plan: Patient admitted for inpatient psychiatric evaluation, medication adjustment and close monitoring The patient's behavior, mood, sleep and appetite will be closely monitored. Patient enrolled in individual and group therapeutic sessions and encouraged to attend. Patient provided with a safe and structured environment. Patient's physical health needs will be addressed by the Hospitalist. Hospitalist Consulted Labs including CBC, CMP, Lipid profile and Hemoglobin A1C levels ordered for baseline reference Social Assessment will be completed and the Supervising Floorperson will work with patient and family to ensure a suitable and safe disposition Medication adjustment will be made as clinically indicated No changes made today. [employer]: - Start Trazodone 50 mg po QHS & 50 mg po QHS PRN between 10 PM & 2 AM for insomnia - Start Melatonin 5 mg po QHS to promote circadian rhythm The patient agreed on the treatment plan, understood the risk, benefit, alternative treatment, potential consequence of no treatment, and gave informed consent. Estimated days: 7 Medications and Allergies Allergies Allergy/AdvReac Type Severity Reaction Status Date / Time No Known Allergies Allergy Verified 01/29/22 22:41 Home Medications Medication Instructions Recorded Confirmed Last Taken Type Albuterol Sulfate [Proair 90 mcg IH BID PRN 01/30/22 01/30/22 Unknown History Respiclick] Apixaban [Eliquis] 5 mg PO BID 01/30/22 01/30/22 Unknown History AtorvaSTATin [Lipitor] 40 mg PO QHS 01/30/22 01/30/22 Unknown History Clopidogrel [Plavix] 75 mg PO QDAY 01/30/22 01/30/22 Unknown History Docusate Sodium [Colace] 100 mg PO BID 01/30/22 01/30/22 Unknown History FLUoxetine [PROzac] 20 mg PO QDAY 01/30/22 01/30/22 Unknown History Gabapentin 200 mg PO TID 01/30/22 01/30/22 Unknown History Insulin Degludec (Nf) [Tresiba 40 units SQ DAILY 01/30/22 01/30/22 Unknown History Flextouch U-100 (Nf)] Losartan [Cozaar] 50 mg PO QDAY 01/30/22 01/30/22 Unknown History Quetiapine Fumarate [SEROquel] 50 mg PO BID 01/30/22 01/30/22 Unknown History Tamsulosin [Flomax] 0.8 mg PO 01/30/22 01/30/22 Unknown History amLODIPine [Norvasc] 5 mg PO DAILY 01/30/22 01/30/22 Unknown History donepeziL [Aricept] 5 mg PO 01/30/22 01/30/22 Unknown History Active Meds: Active Medications Albuterol (Albuterol 2.5 Mg/3 Ml Nebu) 2.5 mg IH Q4HRT PRN PRN Reason: Shortness Of Breath Amlodipine Besylate (Amlodipine 5 Mg Tab) 5 mg PO DAILY [facility] Last Admin: 02/13/22 09:11 Dose: 5 mg Atorvastatin Calcium (Atorvastatin 40 Mg Tab) 40 mg PO QHS [facility] Last Admin: 02/12/22 21:14 Dose: 40 mg Clopidogrel Bisulfate (Clopidogrel 75 Mg Tab) 75 mg PO QDAY [facility] Last Admin: 02/13/22 09:11 Dose: 75 mg Dextrose (Dextrose 50% In Water (25gm) 50 Ml Syringe) 50 ml IV Q30MIN PRN; Protocol PRN Reason: Hypoglycemia Docusate Sodium (Docusate Sodium 100 Mg Cap) 100 mg PO BID [facility] Last Admin: 02/13/22 09:11 Dose: 100 mg Donepezil HCl (Donepezil 5 Mg Tab) 5 mg PO [facility] Last Admin: 02/12/22 21:14 Dose: 5 mg Fluoxetine HCl (Fluoxetine 10 Mg Tab) 30 mg PO QDAY [facility] Last Admin: 02/13/22 09:10 Dose: 30 mg Gabapentin (Gabapentin 100 Mg Cap) 200 mg PO TID [facility] Last Admin: 02/13/22 09:10 Dose: 200 mg Insulin Glargine (Insulin Glargine 100 Units/Ml) 40 units SUB-Q QHS [facility] Last Admin: 02/12/22 21:20 Dose: 40 units Insulin Human Lispro (Insulin Lispro 100 Unit/Ml) 0 unit SUB-Q ACHS [facility]; Protocol Last Admin: 02/13/22 08:20 Dose: Not Given Losartan Potassium (Losartan 50 Mg Tab) 50 mg PO QDAY [facility] Last Admin: 02/13/22 09:11 Dose: 50 mg Quetiapine Fumarate (Quetiapine 100 Mg Tab) 100 mg PO QHS [facility] Last Admin: 02/12/22 21:14 Dose: 100 mg Quetiapine Fumarate (Quetiapine 25 Mg Tab) 50 mg PO DAILY [facility] Last Admin: 02/13/22 09:10 Dose: 50 mg Tamsulosin HCl (Tamsulosin 0.4 Mg Cap) 0.8 mg PO [facility] Last Admin: 02/12/22 21:14 Dose: 0.8 mg Results - Results Labs/Vitals: Laboratory Last Values WBC 5.7 K/mm3 (4.5-11.0) 01/30/22 09:02 RBC 4.87 M/mm3 (3.65-5.03) 01/30/22 09:02 Hgb 13.5 gm/dl (11.8-15.2) 01/30/22 09:02 Hct 41.0 % (35.5-45.6) 01/30/22 09:02 MCV 84 fl (84-94) 01/30/22 09:02 MCH 28 pg (28-32) 01/30/22 09:02 MCHC 33 % (32-34) 01/30/22 09:02 RDW 14.2 % (13.2-15.2) 01/30/22 09:02 Plt Count 116 K/mm3 (140-440) L 01/30/22 09:02 Lymph % (Auto) 26.8 % (13.4-35.0) 01/30/22 09:02 [place] % (Auto) 10.4 % (0.0-7.3) H 01/30/22 09:02 Eos % (Auto) 1.6 % (0.0-4.3) 01/30/22 09:02 Baso % (Auto) 0.5 % (0.0-1.8) 01/30/22 09:02 Lymph # (Auto) 1.5 K/mm3 (1.2-5.4) 01/30/22 09:02 [place] # (Auto) 0.6 K/mm3 (0.0-0.8) 01/30/22 09:02 Eos # (Auto) 0.1 K/mm3 (0.0-0.4) 01/30/22 09:02 Baso # (Auto) 0.0 K/mm3 (0.0-0.1) 01/30/22 09:02 Seg Neutrophils % 60.7 % (40.0-70.0) 01/30/22 09:02 Seg Neutrophils # 3.4 K/mm3 (1.8-7.7) 01/30/22 09:02 Sodium 136 mmol/L (137-145) L 01/30/22 09:02 Potassium 4.2 mmol/L (3.6-5.0) 01/30/22 09:02 Chloride 102.6 mmol/L (98-107) 01/30/22 09:02 Carbon Dioxide 22 mmol/L (22-30) 01/30/22 09:02 Anion Gap 16 mmol/L 01/30/22 09:02 BUN 16 mg/dL (9-20) 01/30/22 09:02 Creatinine 1.2 mg/dL (0.8-1.3) 01/30/22 09:02 Estimated GFR > 60 ml/min 01/30/22 09:02 BUN/Creatinine Ratio 13 % 01/30/22 09:02 Glucose 243 mg/dL (75-100) H 01/30/22 09:02 POC Glucose 142 mg/dL (70-105) H 02/13/22 06:21 Hemoglobin A1c 8.9 % (4-6) H 01/30/22 09:02 Calcium 9.4 mg/dL (8.4-10.2) 01/30/22 09:02 Total Bilirubin 0.50 mg/dL (0.1-1.2) 01/30/22 09:02 AST 17 units/L (5-40) 01/30/22 09:02 ALT 16 units/L (7-56) 01/30/22 09:02 Alkaline Phosphatase 89 units/L (35-129) 01/30/22 09:02 Total Protein 7.6 g/dL (6.3-8.2) 01/30/22 09:02 Albumin 4.1 g/dL (3.9-5) 01/30/22 09:02 Albumin/Globulin Ratio 1.2 % 01/30/22 09:02 Triglycerides 76 mg/dL (2-149) 01/30/22 09:02 Cholesterol 100 mg/dL (50-199) 01/30/22 09:02 LDL Cholesterol Direct 38 mg/dL (50-130) L 01/30/22 09:02 HDL Cholesterol 50 mg/dL (40-59) 01/30/22 09:02 Cholesterol/HDL Ratio 2.00 % 01/30/22 09:02 TSH 1.020 mlU/mL (0.270-4.200) 01/30/22 09:02 Hepatitis A IgM Ab Non-reactive (NonReactive) 01/30/22 09:02 Hep Bs Antigen Non-reactive (Negative) 01/30/22 09:02 Hep B Core IgM Ab Non-reactive (NonReactive) 01/30/22 09:02 Hepatitis C Antibody Non-reactive (NonReactive) 01/30/22 09:02 Last Vital Signs Temp 97.9 F 02/13/22 09:07 Pulse 92 H 02/13/22 09:11 Resp 18 02/13/22 09:07 BP 113/72 02/13/22 09:11 Pulse Ox 98 02/13/22 09:07
[2022-02-13] MEDS: DONEPEZIL 5 MG TAB PO SCH (21:21)
[2022-02-13] MEDS: TAMSULOSIN 0.4 MG CAP PO SCH (21:22)
[2022-02-13] MEDS: INSULIN GLARGINE 100 UNITS/ML SUB-Q SCH (21:22)
[2022-02-13] MEDS: QUEtiapine 100 MG TAB PO SCH (21:23)
[2022-02-14] MEDS: GABAPENTIN 100 MG CAP PO SCH ×3 (08:55→20:51)
[2022-02-14] MEDS: INSULIN LISPRO 100 UNIT/ML SUB-Q SCH ×4 (08:55→23:00)
[2022-02-14] MEDS: amLODIPine 5 MG TAB PO SCH (09:46)
[2022-02-14] MEDS: FLUoxetine 10 MG TAB PO SCH (09:46)
[2022-02-14] MEDS: QUEtiapine 25 MG TAB PO SCH (09:46)
[2022-02-14] MEDS: CLOPIDOGREL 75 MG TAB PO SCH (09:46)
[2022-02-14] MEDS: DOCUSATE SODIUM 100 MG CAP PO SCH ×2 (09:46→21:24)
[2022-02-14] MEDS: LOSARTAN 50 MG TAB PO SCH (09:47)
--- NOTE | 2022-02-14 15:07 | Progress Note ---
Subjective Date of service: 02/14/22 Principal diagnosis: Dementia w/behavioral disturbance Subjective Comment: 02/14: The patient was seen today. He is pleasantly confused. He does not answer questions appropriately and talks incomprehensibly. Per nurses note, he is calm and compliant with medications. He often presents with confusion. Patient is unable to care for self and requires placement and 24-hr supervision. No medication adjustment today 02/13: The patient was seen today. He is pleasantly confused. He does not answer questions appropriately and talks incomprehensibly. Per nurses note, he is calm and compliant with medications. He often presents with confusion. Patient is unable to care for self and requires placement and 24-hr supervision. No medication adjustment today 02/12:The patient was seen in his room this morning. He is calm and cooperative. He reports doing well. He continues to have periods of confusion. No changes made. 02/11:The patient was seen in his room this morning. He states he could not sleep last night. The patient continues to mumble, difficult to understand. 02/10:The patient was seen in his room this morning.He is calm and cooperative. He continues to be confused and hard to understand. No changes made today. 02/09: The patient was seen in his room this morning. He is calm and cooperat tyson. He continues to be confused. Increase Seroquel to 100mg po QHS. 02/08:The patient was seen in his room this morning. The patient is confused " they're talking about me going back to school. " No changes made. 02/07: The patient was seen today. The patient is tangential and confused. " I would like to call the resistance brazer; I'm trying to get home." 02/06:The patient was seen today. He is calm and cooperative. the patient continues to present with confusion " I still want to speak with the police." he denies suicidal/homicidal ideation. No changes made today. 02/05: The patient was seen today. He is sitting in the dayroom eating breakfast. He is calm and cooperative. The patient is confused, but pleasant. He says he slept good. The patient says "I'm hoping to go home" he then laughs. He denies SI/HI or hallucinations. 02/04 The patient was seen today. He is calm and cooperative. It's difficult for him to articulate his thoughts. He did say he's feels okay and slept fine. 02/03 The patient was seen today. He has poor insight. He is calm and cooperative. He is confused but answers some simple questions. He says "I have a hard time saying what I want to say." The patient says "I thought I was going home." He could not articulate how he was feeling. 02/02 The patient was seen today. He is a little less confused today. He says he's doing okay. The patient says "I thought I was going home today." He denies SI/HI or hallucinations. He says he slept okay. 02/01 The patient was seen today. He is confused and unable to engage in the evaluation. He is talking nonsensically. He says "I don't know who moved me here." He then says "it was supposed to been three numbers." 01/31 The patient was seen today. He is confused and has poor insight. He says "they woke up with me last night." He's unable to engage in the evaluation due to his insight. REVIEW OF SYSTEMS MENTAL STATUS EXAMINATION Diagnoses: Dementia with behavioral disturbances Treatment Plan: The patient's behavior, mood, sleep and appetite will be closely monitored. Patient enrolled in individual and group therapeutic sessions and encouraged to attend. Patient provided with a safe and structured environment. Patient's physical health needs will be addressed by the Hospitalist. Social Assessment will be completed and the Head Sampler will work with patient and family to ensure a suitable and safe disposition Medication adjustment will be made as clinically indicated No changes made today. Estimated days: 2 Medications and Allergies Allergies Allergy/AdvReac Type Severity Reaction Status Date / Time No Known Allergies Allergy Verified 01/29/22 22:41 Home Medications Medication Instructions Recorded Confirmed Last Taken Type Albuterol Sulfate [Proair 90 mcg IH BID PRN 01/30/22 01/30/22 Unknown History Respiclick] Apixaban [Eliquis] 5 mg PO BID 01/30/22 01/30/22 Unknown History AtorvaSTATin [Lipitor] 40 mg PO QHS 01/30/22 01/30/22 Unknown History Clopidogrel [Plavix] 75 mg PO QDAY 01/30/22 01/30/22 Unknown History Docusate Sodium [Colace] 100 mg PO BID 01/30/22 01/30/22 Unknown History FLUoxetine [PROzac] 20 mg PO QDAY 01/30/22 01/30/22 Unknown History Gabapentin 200 mg PO TID 01/30/22 01/30/22 Unknown History Insulin Degludec (Nf) [Tresiba 40 units SQ DAILY 01/30/22 01/30/22 Unknown History Flextouch U-100 (Nf)] Losartan [Cozaar] 50 mg PO QDAY 01/30/22 01/30/22 Unknown History Quetiapine Fumarate [SEROquel] 50 mg PO BID 01/30/22 01/30/22 Unknown History Tamsulosin [Flomax] 0.8 mg PO HS 01/30/22 01/30/22 Unknown History amLODIPine [Norvasc] 5 mg PO DAILY 01/30/22 01/30/22 Unknown History donepeziL [Aricept] 5 mg PO HS 01/30/22 01/30/22 Unknown History Active Meds: Active Medications Albuterol (Albuterol 2.5 Mg/3 Ml Nebu) 2.5 mg IH Q4HRT PRN PRN Reason: Shortness Of Breath Amlodipine Besylate (Amlodipine 5 Mg Tab) 5 mg PO DAILY [facility] Last Admin: 02/14/22 09:46 Dose: 5 mg Atorvastatin Calcium (Atorvastatin 40 Mg Tab) 40 mg PO QHS [facility] Last Admin: 02/13/22 21:23 Dose: 40 mg Clopidogrel Bisulfate (Clopidogrel 75 Mg Tab) 75 mg PO QDAY [facility] Last Admin: 02/14/22 09:46 Dose: 75 mg Dextrose (Dextrose 50% In Water (25gm) 50 Ml Syringe) 50 ml IV Q30MIN PRN; Protocol PRN Reason: Hypoglycemia Docusate Sodium (Docusate Sodium 100 Mg Cap) 100 mg PO BID [facility] Last Admin: 02/14/22 09:46 Dose: 100 mg Donepezil HCl (Donepezil 5 Mg Tab) 5 mg PO [facility] Last Admin: 02/13/22 21:21 Dose: 5 mg Fluoxetine HCl (Fluoxetine 10 Mg Tab) 30 mg PO QDAY [facility] Last Admin: 02/14/22 09:46 Dose: 30 mg Gabapentin (Gabapentin 100 Mg Cap) 200 mg PO TID [facility] Last Admin: 02/14/22 08:55 Dose: 200 mg Insulin Glargine (Insulin Glargine 100 Units/Ml) 40 units SUB-Q QHS [facility] Last Admin: 02/13/22 21:22 Dose: 40 units Insulin Human Lispro (Insulin Lispro 100 Unit/Ml) 0 unit SUB-Q ACHS [facility]; Protocol Last Admin: 02/14/22 08:55 Dose: 1 unit Losartan Potassium (Losartan 50 Mg Tab) 50 mg PO QDAY [facility] Last Admin: 02/14/22 09:47 Dose: Not Given Quetiapine Fumarate (Quetiapine 100 Mg Tab) 100 mg PO QHS [facility] Last Admin: 02/13/22 21:23 Dose: 100 mg Quetiapine Fumarate (Quetiapine 25 Mg Tab) 50 mg PO DAILY [facility] Last Admin: 02/14/22 09:46 Dose: 50 mg Tamsulosin HCl (Tamsulosin 0.4 Mg Cap) 0.8 mg PO [facility] Last Admin: 02/13/22 21:22 Dose: 0.8 mg Results - Results Labs/Vitals: Laboratory Last Values WBC 5.7 K/mm3 (4.5-11.0) 01/30/22 09:02 RBC 4.87 M/mm3 (3.65-5.03) 01/30/22 09:02 Hgb 13.5 gm/dl (11.8-15.2) 01/30/22 09:02 Hct 41.0 % (35.5-45.6) 01/30/22 09:02 MCV 84 fl (84-94) 01/30/22 09:02 MCH 28 pg (28-32) 01/30/22 09:02 MCHC 33 % (32-34) 01/30/22 09:02 RDW 14.2 % (13.2-15.2) 01/30/22 09:02 Plt Count 116 K/mm3 (140-440) L 01/30/22 09:02 Lymph % (Auto) 26.8 % (13.4-35.0) 01/30/22 09:02 [place] % (Auto) 10.4 % (0.0-7.3) H 01/30/22 09:02 Eos % (Auto) 1.6 % (0.0-4.3) 01/30/22 09:02 Baso % (Auto) 0.5 % (0.0-1.8) 01/30/22 09:02 Lymph # (Auto) 1.5 K/mm3 (1.2-5.4) 01/30/22 09:02 [place] # (Auto) 0.6 K/mm3 (0.0-0.8) 01/30/22 09:02 Eos # (Auto) 0.1 K/mm3 (0.0-0.4) 01/30/22 09:02 Baso # (Auto) 0.0 K/mm3 (0.0-0.1) 01/30/22 09:02 Seg Neutrophils % 60.7 % (40.0-70.0) 01/30/22 09:02 Seg Neutrophils # 3.4 K/mm3 (1.8-7.7) 01/30/22 09:02 Sodium 136 mmol/L (137-145) L 01/30/22 09:02 Potassium 4.2 mmol/L (3.6-5.0) 01/30/22 09:02 Chloride 102.6 mmol/L (98-107) 01/30/22 09:02 Carbon Dioxide 22 mmol/L (22-30) 01/30/22 09:02 Anion Gap 16 mmol/L 01/30/22 09:02 BUN 16 mg/dL (9-20) 01/30/22 09:02 Creatinine 1.2 mg/dL (0.8-1.3) 01/30/22 09:02 Estimated GFR > 60 ml/min 01/30/22 09:02 BUN/Creatinine Ratio 13 % 01/30/22 09:02 Glucose 243 mg/dL (75-100) H 01/30/22 09:02 POC Glucose 143 mg/dL (70-105) H 02/14/22 11:43 Hemoglobin A1c 8.9 % (4-6) H 01/30/22 09:02 Calcium 9.4 mg/dL (8.4-10.2) 01/30/22 09:02 Total Bilirubin 0.50 mg/dL (0.1-1.2) 01/30/22 09:02 AST 17 units/L (5-40) 01/30/22 09:02 ALT 16 units/L (7-56) 01/30/22 09:02 Alkaline Phosphatase 89 units/L (35-129) 01/30/22 09:02 Total Protein 7.6 g/dL (6.3-8.2) 01/30/22 09:02 Albumin 4.1 g/dL (3.9-5) 01/30/22 09:02 Albumin/Globulin Ratio 1.2 % 01/30/22 09:02 Triglycerides 76 mg/dL (2-149) 01/30/22 09:02 Cholesterol 100 mg/dL (50-199) 01/30/22 09:02 LDL Cholesterol Direct 38 mg/dL (50-130) L 01/30/22 09:02 HDL Cholesterol 50 mg/dL (40-59) 01/30/22 09:02 Cholesterol/HDL Ratio 2.00 % 01/30/22 09:02 TSH 1.020 mlU/mL (0.270-4.200) 01/30/22 09:02 Hepatitis A IgM Ab Non-reactive (NonReactive) 01/30/22 09: Hep Bs Antigen Non-reactive (Negative) 01/30/22 09: Hep B Core IgM Ab Non-reactive (NonReactive) 01/30/22 09:02 Hepatitis C Antibody Non-reactive (NonReactive) 01/30/22 09:02 Last Vital Signs Temp 98.0 F 02/14/22 09:05 Pulse 88 02/14/22 09:47 Resp 18 02/14/22 09:05 BP 128/62 02/14/22 09:47 Pulse Ox 97 02/14/22 09:05
[2022-02-14] MEDS: DONEPEZIL 5 MG TAB PO SCH (21:24)
[2022-02-14] MEDS: QUEtiapine 100 MG TAB PO SCH (21:24)
[2022-02-14] MEDS: TAMSULOSIN 0.4 MG CAP PO SCH (21:24)
[2022-02-14] MEDS: INSULIN GLARGINE 100 UNITS/ML SUB-Q SCH (23:23)
[2022-02-15] MEDS: GABAPENTIN 100 MG CAP PO SCH ×3 (08:17→21:24)
[2022-02-15] MEDS: INSULIN LISPRO 100 UNIT/ML SUB-Q SCH ×4 (08:22→22:50)
--- NOTE | 2022-02-15 08:38 | Progress Note ---
Subjective Date of service: 02/15/22 Principal diagnosis: Dementia w/behavioral disturbance Subjective Comment: 02/15: The patient was seen today. He is pleasantly confused. Patient is unable to care for self and requires placement and 24-hr supervision. No medication adjustment today Per Nursing Note: pt is pleasantly confused, medication compliant, good appetite, no complaints voiced, slept through the night, no distress noted, will continue to monitor for safety. 02/14: The patient was seen today. He is pleasantly confused. He does not answer questions appropriately and talks incomprehensibly. Per nurses note, he is calm and compliant with medications. He often presents with confusion. Patient is unable to care for self and requires placement and 24-hr supervision. No medication adjustment today 02/13: The patient was seen today. He is pleasantly confused. He does not answer questions appropriately and talks incomprehensibly. Per nurses note, he is calm and compliant with medications. He often presents with confusion. Patient is unable to care for self and requires placement and 24-hr supervision. No medication adjustment today 02/12:The patient was seen in his room this morning. He is calm and cooperative. He reports doing well. He continues to have periods of confusion. No changes made. 02/11:The patient was seen in his room this morning. He states he could not sleep last night. The patient continues to mumble, difficult to understand. 02/10:The patient was seen in his room this morning.He is calm and cooperative. He continues to be confused and hard to understand. No changes made today. 02/09: The patient was seen in his room this morning. He is calm and cooperative. He continues to be confused. Increase Seroquel to 100mg po QHS. 02/08:The patient was seen in his room this morning. The patient is confused " they're talking about me going back to school. " No changes made. 02/07: The patient was seen today. The patient is tangential and confused. " I would like to call the senior actuarial analyst; I'm trying to get home." 02/06:The patient was seen today. He is calm and cooperative. the patient continues to present with confusion " I still want to speak with the police." he denies suicidal/homicidal ideation. No changes made today. 02/05: The patient was seen today. He is sitting in the dayroom eating breakfast. He is calm and cooperative. The patient is confused, but pleasant. He says he slept good. The patient says "I'm hoping to go home" he then laughs. He denies SI/HI or hallucinations. 02/04 The patient was seen today. He is calm and cooperative. It's difficult for him to articulate his thoughts. He did say he's feels okay and slept fine. 02/03 The patient was seen today. He has poor insight. He is calm and c ooperative. He is confused but answers some simple questions. He says "I have a hard time saying what I want to say." The patient says "I thought I was going home." He could not articulate how he was feeling. 02/02 The patient was seen today. He is a little less confused today. He says he's doing okay. The patient says "I thought I was going home today." He denies SI/HI or hallucinations. He says he slept okay. 02/01 The patient was seen today. He is confused and unable to engage in the evaluation. He is talking nonsensically. He says "I don't know who moved me here." He then says "it was supposed to been three numbers." 01/31 The patient was seen today. He is confused and has poor insight. He says "they woke up with me last night." He's unable to engage in the evaluation due to his insight. REVIEW OF SYSTEMS MENTAL STATUS EXAMINATION Diagnoses: Dementia with behavioral disturbances Treatment Plan: The patient's behavior, mood, sleep and appetite will be closely monitored. Patient enrolled in individual and group therapeutic sessions and encouraged to attend. Patient provided with a safe and structured environment. Patient's physical health needs will be addressed by the Hospitalist. Social Assessment will be completed and the Auto Design Checker will work with patient and family to ensure a suitable and safe disposition Medication adjustment will be made as clinically indicated No changes made today. Estimated days: 2 Medications and Allergies Allergies Allergy/AdvReac Type Severity Reaction Status Date / Time No Known Allergies Allergy Verified 01/29/22 22:41 Home Medications Medication Instructions Recorded Confirmed Last Taken Type Albuterol Sulfate [Proair 90 mcg IH BID PRN 01/30/22 01/30/22 Unknown History Respiclick] Apixaban [Eliquis] 5 mg PO BID 01/30/22 01/30/22 Unknown History AtorvaSTATin [Lipitor] 40 mg PO QHS 01/30/22 01/30/22 Unknown History Clopidogrel [Plavix] 75 mg PO QDAY 01/30/22 01/30/22 Unknown History Docusate Sodium [Colace] 100 mg PO BID 01/30/22 01/30/22 Unknown History FLUoxetine [PROzac] 20 mg PO QDAY 01/30/22 01/30/22 Unknown History Gabapentin 200 mg PO TID 01/30/22 01/30/22 Unknown History Insulin Degludec (Nf) [Tresiba 40 units SQ DAILY 01/30/22 01/30/22 Unknown History Flextouch U-100 (Nf)] Losartan [Cozaar] 50 mg PO QDAY 01/30/22 01/30/22 Unknown History Quetiapine Fumarate [SEROquel] 50 mg PO BID 01/30/22 01/30/22 Unknown History Tamsulosin [Flomax] 0.8 mg PO HS 01/30/22 01/30/22 Unknown History amLODIPine [Norvasc] 5 mg PO DAILY 01/30/22 01/30/22 Unknown History donepeziL [Aricept] 5 mg PO HS 01/30/22 01/30/22 Unknown History Active Meds: Active Medications Albuterol (Albuterol 2.5 Mg/3 Ml Nebu) 2.5 mg IH Q4HRT PRN PRN Reason: Shortness Of Breath Amlodipine Besylate (Amlodipine 5 Mg Tab) 5 mg PO DAILY [facility] Last Admin: 02/14/22 09:46 Dose: 5 mg Atorvastatin Calcium (Atorvastatin 40 Mg Tab) 40 mg PO QHS [facility] Last Admin: 02/14/22 21:24 Dose: 40 mg Clopidogrel Bisulfate (Clopidogrel 75 Mg Tab) 75 mg PO QDAY [facility] Last Admin: 02/14/22 09:46 Dose: 75 mg Dextrose (Dextrose 50% In Water (25gm) 50 Ml Syringe) 50 ml IV Q30MIN PRN; Protocol PRN Reason: Hypoglycemia Docusate Sodium (Docusate Sodium 100 Mg Cap) 100 mg PO BID [facility] Last Admin: 02/14/22 21:24 Dose: 100 mg Donepezil HCl (Donepezil 5 Mg Tab) 5 mg PO HS [facility] Last Admin: 02/14/22 21:24 Dose: 5 mg Fluoxetine HCl (Fluoxetine 10 Mg Tab) 30 mg PO QDAY [facility] Last Admin: 02/14/22 09:46 Dose: 30 mg Gabapentin (Gabapentin 100 Mg Cap) 200 mg PO TID [facility] Last Admin: 02/15/22 08:17 Dose: 200 mg Insulin Glargine (Insulin Glargine 100 Units/Ml) 40 units SUB-Q QHS [facility] Last Admin: 02/14/22 23:23 Dose: 40 units Insulin Human Lispro (Insulin Lispro 100 Unit/Ml) 0 unit SUB-Q [facility]; Protocol Last Admin: 02/15/22 08:22 Dose: 1 unit Losartan Potassium (Losartan 50 Mg Tab) 50 mg PO QDAY [facility] Last Admin: 02/14/22 09:47 Dose: Not Given Quetiapine Fumarate (Quetiapine 100 Mg Tab) 100 mg PO QHS [facility] Last Admin: 02/14/22 21:24 Dose: 100 mg Quetiapine Fumarate (Quetiapine 25 Mg Tab) 50 mg PO DAILY [facility] Last Admin: 02/14/22 09:46 Dose: 50 mg Tamsulosin HCl (Tamsulosin 0.4 Mg Cap) 0.8 mg PO [facility] Last Admin: 02/14/22 21:24 Dose: 0.8 mg Results - Results Labs/Vitals: Laboratory Last Values WBC 5.7 K/mm3 (4.5-11.0) 01/30/22 09:02 RBC 4.87 M/mm3 (3.65-5.03) 01/30/22 09:02 Hgb 13.5 gm/dl (11.8-15.2) 01/30/22 09:02 Hct 41.0 % (35.5-45.6) 01/30/22 09:02 MCV 84 fl (84-94) 01/30/22 09:02 MCH 28 pg (28-32) 01/30/22 09:02 MCHC 33 % (32-34) 01/30/22 09:02 RDW 14.2 % (13.2-15.2) 01/30/22 09:02 Plt Count 116 K/mm3 (140-440) L 01/30/22 09:02 Lymph % (Auto) 26.8 % (13.4-35.0) 01/30/22 09:02 [place] % (Auto) 10.4 % (0.0-7.3) H 01/30/22 09:02 Eos % (Auto) 1.6 % (0.0-4.3) 01/30/22 09:02 Baso % (Auto) 0.5 % (0.0-1.8) 01/30/22 09:02 Lymph # (Auto) 1.5 K/mm3 (1.2-5.4) 01/30/22 09:02 [place] # (Auto) 0.6 K/mm3 (0.0-0.8) 01/30/22 09:02 Eos # (Auto) 0.1 K/mm3 (0.0-0.4) 01/30/22 09:02 Baso # (Auto) 0.0 K/mm3 (0.0-0.1) 01/30/22 09:02 Seg Neutrophils % 60.7 % (40.0-70.0) 01/30/22 09:02 Seg Neutrophils # 3.4 K/mm3 (1.8-7.7) 01/30/22 09:02 Sodium 136 mmol/L (137-145) L 01/30/22 09:02 Potassium 4.2 mmol/L (3.6-5.0) 01/30/22 09:02 Chloride 102.6 mmol/L (98-107) 01/30/22 09:02 Carbon Dioxide 22 mmol/L (22-30) 01/30/22 09:02 Anion Gap 16 mmol/L 01/30/22 09:02 BUN 16 mg/dL (9-20) 01/30/22 09:02 Creatinine 1.2 mg/dL (0.8-1.3) 01/30/22 09:02 Estimated GFR > 60 ml/min 01/30/22 09:02 BUN/Creatinine Ratio 13 % 01/30/22 09:02 Glucose 243 mg/dL (75-100) H 01/30/22 09:02 POC Glucose 152 mg/dL (70-105) H 02/15/22 06:12 Hemoglobin A1c 8.9 % (4-6) H 01/30/22 09:02 Calcium 9.4 mg/dL (8.4-10.2) 01/30/22 09:02 Total Bilirubin 0.50 mg/dL (0.1-1.2) 01/30/22 09:02 AST 17 units/L (5-40) 01/30/22 09:02 ALT 16 units/L (7-56) 01/30/22 09:02 Alkaline Phosphatase 89 units/L (35-129) 01/30/22 09:02 Total Protein 7.6 g/dL (6.3-8.2) 01/30/22 09:02 Albumin 4.1 g/dL (3.9-5) 01/30/22 09:02 Albumin/Globulin Ratio 1.2 % 01/30/22 09:02 Triglycerides 76 mg/dL (2-149) 01/30/22 09:02 Cholesterol 100 mg/dL (50-199) 01/30/22 09:02 LDL Cholesterol Direct 38 mg/dL (50-130) L 01/30/22 09:02 HDL Cholesterol 50 mg/dL (40-59) 01/30/22 09:02 Cholesterol/HDL Ratio 2.00 % 01/30/22 09:02 TSH 1.020 mlU/mL (0.270-4.200) 01/30/22 09:02 Hepatitis A IgM Ab Non-reactive (NonReactive) 01/30/22 09:02 Hep Bs Antigen Non-reactive (Negative) 01/30/22 09:02 Hep B Core IgM Ab Non-reactive (NonReactive) 01/30/22 09:02 Hepatitis C Antibody Non-reactive (NonReactive) 01/30/22 09:02 Last Vital Signs Temp 97.6 F 02/14/22 19:41 Pulse 81 02/14/22 19:41 Resp 17 02/14/22 19:41 BP 164/82 02/14/22 19:41 Pulse Ox 95 02/14/22 19:41
[2022-02-15] MEDS: LOSARTAN 50 MG TAB PO SCH (09:01)
[2022-02-15] MEDS: DOCUSATE SODIUM 100 MG CAP PO SCH ×2 (09:01→21:25)
[2022-02-15] MEDS: FLUoxetine 10 MG TAB PO SCH (09:02)
[2022-02-15] MEDS: amLODIPine 5 MG TAB PO SCH (09:02)
[2022-02-15] MEDS: QUEtiapine 25 MG TAB PO SCH (09:03)
[2022-02-15] MEDS: CLOPIDOGREL 75 MG TAB PO SCH (09:03)
--- NOTE | 2022-02-15 10:07 | Progress Note ---
Assessment and Plan - Patient Problems (1) Vascular dementia with behavioral disturbance Current Visit: Yes Status: Acute Plan to address problem: Verbal prompting, verbal redirection, benzodiazepine therapy as clinically indicated. (2) Cerebral atherosclerosis Current Visit: Yes Status: Acute Plan to address problem: Antiplatelet therapy as clinically indicated, supportive care. (3) Hypertension Current Visit: Yes Status: Acute Qualifiers: Hypertension type: primary hypertension Qualified Code(s): I10 - Essential (primary) hypertension Plan to address problem: Monitor blood pressure every shift, continue medical management. (4) Diabetes Current Visit: Yes Status: Acute Plan to address problem: Consistent carbohydrate diet, Accu-Chek, insulin protocol, hypoglycemia protocol. (5) Advance care planning Current Visit: Yes Status: Acute Plan to address problem: Disease education done, care plan discussed, diagnoses discussed, prognosis discussed, +30 minutes. History Interval history: 76 YO Male Vascular Dementia with Behavioral Disturbance, Cerebral Athe rosclerosis, DM, HTN, Encephalopathy admitted to [facility] for psychiatric stabilization. Consult placed by Dr. Zhang for medical management. Patient seen and evaluated in the recreation room. Patient resting comfortably. No reported nursing events. Patient exhibits diminished cognition and aphasia. Patient remains at baseline level of cognition and function. Hospitalist Physical - Constitutional Vitals: Temp Pulse Resp BP Pulse Ox 98.1 F 85 17 116/53 98 02/15/22 09:52 02/15/22 09:52 02/15/22 09:52 02/15/22 09:52 02/15/22 09:52 General appearance: Present: no acute distress, well-nourished - EENT Eyes: Present: PERRL ENT: hearing decreased - Neck Neck: Present: supple - Respiratory Respiratory effort: normal Respiratory: bilateral: diminished - Cardiovascular Rhythm: regular Heart Sounds: Present: S1 & S2 - Extremities Extremities: no ischemia Peripheral Pulses: within normal limits - Abdominal General gastrointestinal: soft, non-tender, non-distended - Integumentary Integumentary: Present: clear, dry - Psychiatric Psychiatric: cooperative - Neurologic Neurologic: CNII-XII intact Results - Labs CBC & Chem 7: 01/30/22 09:02 01/30/22 09:02 Labs: Laboratory Last Values WBC 5.7 K/mm3 (4.5-11.0) 01/30/22 09:02 RBC 4.87 M/mm3 (3.65-5.03) 01/30/22 09:02 Hgb 13.5 gm/dl (11.8-15.2) 01/30/22 09:02 Hct 41.0 % (35.5-45.6) 01/30/22 09:02 MCV 84 fl (84-94) 01/30/22 09:02 MCH 28 pg (28-32) 01/30/22 09:02 MCHC 33 % (32-34) 01/30/22 09:02 RDW 14.2 % (13.2-15.2) 01/30/22 09:02 Plt Count 116 K/mm3 (140-440) L 01/30/22 09:02 Lymph % (Auto) 26.8 % (13.4-35.0) 01/30/22 09:02 [place] % (Auto) 10.4 % (0.0-7.3) H 01/30/22 09:02 Eos % (Auto) 1.6 % (0.0-4.3) 01/30/22 09:02 Baso % (Auto) 0.5 % (0.0-1.8) 01/30/22 09:02 Lymph # (Auto) 1.5 K/mm3 (1.2-5.4) 01/30/22 09:02 [place] # (Auto) 0.6 K/mm3 (0.0-0.8) 01/30/22 09:02 Eos # (Auto) 0.1 K/mm3 (0.0-0.4) 01/30/22 09:02 Baso # (Auto) 0.0 K/mm3 (0.0-0.1) 01/30/22 09:02 Seg Neutrophils % 60.7 % (40.0-70.0) 01/30/22 09:02 Seg Neutrophils # 3.4 K/mm3 (1.8-7.7) 01/30/22 09:02 Sodium 136 mmol/L (137-145) L 01/30/22 09:02 Potassium 4.2 mmol/L (3.6-5.0) 01/30/22 09:02 Chloride 102.6 mmol/L (98-107) 01/30/22 09:02 Carbon Dioxide 22 mmol/L (22-30) 01/30/22 09:02 Anion Gap 16 mmol/L 01/30/22 09:02 BUN 16 mg/dL (9-20) 01/30/22 09:02 Creatinine 1.2 mg/dL (0.8-1.3) 01/30/22 09:02 Estimated GFR > 60 ml/min 01/30/22 09:02 BUN/Creatinine Ratio 13 % 01/30/22 09:02 Glucose 243 mg/dL (75-100) H 01/30/22 09:02 POC Glucose 152 mg/dL (70-105) H 02/15/22 06:12 Hemoglobin A1c 8.9 % (4-6) H 01/30/22 09:02 Calcium 9.4 mg/dL (8.4-10.2) 01/30/22 09:02 Total Bilirubin 0.50 mg/dL (0.1-1.2) 01/30/22 09:02 AST 17 units/L (5-40) 01/30/22 09:02 ALT 16 units/L (7-56) 01/30/22 09:02 Alkaline Phosphatase 89 units/L (35-129) 01/30/22 09:02 Total Protein 7.6 g/dL (6.3-8.2) 01/30/22 09:02 Albumin 4.1 g/dL (3.9-5) 01/30/22 09:02 Albumin/Globulin Ratio 1.2 % 01/30/22 09:02 Triglycerides 76 mg/dL (2-149) 01/30/22 09:02 Cholesterol 100 mg/dL (50-199) 01/30/22 09:02 LDL Cholesterol Direct 38 mg/dL (50-130) L 01/30/22 09:02 HDL Cholesterol 50 mg/dL (40-59) 01/30/22 09:02 Cholesterol/HDL Ratio 2.00 % 01/30/22 09:02 TSH 1.020 mlU/mL (0.270-4.200) 01/30/22 09:02 Hepatitis A IgM Ab Non-reactive (NonReactive) 01/30/22 09:02 Hep Bs Antigen Non-reactive (Negative) 01/30/22: Hep B Core IgM Ab Non-reactive (NonReactive) 01/30/22 09:02 Hepatitis C Antibody Non-reactive (NonReactive) 01/30/22 09:02 Manuel/IV: Voiding Method Toilet Active Medications - Current Medications Current Medications: Generic Name Dose Route Start Last Admin Trade Name Freq PRN Reason Stop Dose Admin Albuterol 2.5 mg 01/30/22 11:23 Albuterol 2.5 Mg/3 Ml Nebu IH Q4HRT PRN Shortness Of Breath Amlodipine Besylate 5 mg 01/30/22 12:00 02/15/22 09:02 Amlodipine 5 Mg Tab PO 5 mg DAILY TIFFANIE Administration Atorvastatin Calcium 40 mg 01/30/22 22:00 02/14/22 21:24 Atorvastatin 40 Mg Tab PO 40 mg QHS TIFFANIE Administration Clopidogrel Bisulfate 75 mg 01/30/22 12:00 02/15/22 09:03 Clopidogrel 75 Mg Tab PO 75 mg QDAY TIFFANIE Administration Dextrose 50 ml 01/30/22 15:15 Dextrose 50% In Water (25gm) 50 Ml Syringe IV Q30MIN PRN Hypoglycemia Protocol Docusate Sodium 100 mg 01/30/22 12:00 02/15/22 09:01 Docusate Sodium 100 Mg Cap PO 100 mg BID TIFFANIE Administration Donepezil HCl 5 mg 01/30/22 22:00 02/14/22 21:24 Donepezil 5 Mg Tab PO 5 mg HS TIFFANIE Administration Fluoxetine HCl 30 mg 01/31/22 10:00 02/15/22 09:02 Fluoxetine 10 Mg Tab PO 30 mg QDAY TIFFANIE Administration Gabapentin 200 mg 01/30/22 14:00 02/15/22 08:17 Gabapentin 100 Mg Cap PO 200 mg TID TIFFANIE Administration Insulin Glargine 40 units 01/30/22 22:00 02/14/22 23:23 Insulin Glargine 100 Units/Ml SUB-Q 40 units QHS TIFFANIE Administration Insulin Human Lispro 0 unit 01/30/22 16:30 02/15/22 08:22 Insulin Lispro 100 Unit/Ml SUB-Q 1 unit ACHS TIFFANIE Administration Protocol Losartan Potassium 50 mg 01/30/22 12:00 02/15/22 09:01 Losartan 50 Mg Tab PO 50 mg QDAY TIFFANIE Administration Quetiapine Fumarate 100 mg 02/09/22 22:00 02/14/22 21:24 Quetiapine 100 Mg Tab PO 100 mg QHS TIFFANIE Administration Quetiapine Fumarate 50 mg 02/09/22 10:00 02/15/22 09:03 Quetiapine 25 Mg Tab PO 50 mg DAILY TIFFANIE Administration Tamsulosin HCl 0.8 mg 01/30/22 22:00 02/14/22 21:24 Tamsulosin 0.4 Mg Cap PO 0.8 mg HS TIFFANIE Administration Nutrition/Malnutrition Assess - Dietary Evaluation Nutrition/Malnutrition Findings: Nutrition Notes Start: 02/06/22 11:26 Freq: Status: Active Protocol: Document 02/06/22 11:26 JAMAR (Rec: 02/06/22 11:28 [facility] [id number]) Nutrition Notes Need for Assessment generated from: LOS Initial or Follow up Brief Note Current Diet Cardiac/Consistent CHO Height 5 ft 8 in Weight 80 kg [place] Body Weight (kg) 70.00 BMI 26.8 Weight Status Appropriate Subjective/Other Information Pt screened for LOS. He has consumed 100% of meals since admission. Percent of energy/protein needs met: 100% energy and pro Current % PO Good (75-100%) Minimum of two criteria No Is patient on ventilator? No Is Patient Ambulatory and/or Out of Bed Yes REE-([place]. Jeor-ambulatory/OOB) [ [id number] [id number]] Calculation Used for Recommendations [place] or Additional Notes Pro needs 1-1.2g/k-96g/ day Fluid needs 1ml/kcal Nutrition Intervention Revisit per MD consult or patient Sign Off request:
[2022-02-15] MEDS: TAMSULOSIN 0.4 MG CAP PO SCH (21:24)
[2022-02-15] MEDS: DONEPEZIL 5 MG TAB PO SCH (21:25)
[2022-02-15] MEDS: QUEtiapine 100 MG TAB PO SCH (21:25)
[2022-02-15] MEDS: INSULIN GLARGINE 100 UNITS/ML SUB-Q SCH (22:50)
[2022-02-16] MEDS: FLUoxetine 10 MG TAB PO SCH (09:07)
[2022-02-16] MEDS: CLOPIDOGREL 75 MG TAB PO SCH (09:07)
[2022-02-16] MEDS: INSULIN LISPRO 100 UNIT/ML SUB-Q SCH ×4 (09:07→21:25)
[2022-02-16] MEDS: QUEtiapine 25 MG TAB PO SCH (09:07)
[2022-02-16] MEDS: DOCUSATE SODIUM 100 MG CAP PO SCH ×2 (09:08→21:10)
[2022-02-16] MEDS: LOSARTAN 50 MG TAB PO SCH (09:08)
[2022-02-16] MEDS: GABAPENTIN 100 MG CAP PO SCH ×3 (09:08→20:02)
[2022-02-16] MEDS: amLODIPine 5 MG TAB PO SCH (09:08)
--- NOTE | 2022-02-16 10:58 | Progress Note ---
Subjective Date of service: 02/16/22 Principal diagnosis: Dementia w/behavioral disturbance Subjective Comment: History of Present Illness Date of admission: 01/29/22 Reason for Admission: Danger to self, Failure of Outpatient Treatment, Severe anxiety/depression History of Present Illness: HPI: Pt reportedly had made suicidal statements & had been a little bit threatening to others physically & verbally. He is a 76y/o male patient who was admitted to the ted-psych unit for suicidal statements and threats toward others. The patient is confused. He has poor insight and unable to be engaged in the evaluation due to his cognition. The patient could not tell me why he was brought to the hospital. He is rambling about "my life, and what they want me to do." Progress: 02/16: The patient was seen by me today. He is pleasantly confused. I met him pacing slowly up and down the corridor, stopped to talk with me, able to state his name correctly otherwise unable to engage in meaningful conversation. Patient is unable to care for self and requires placement and 24-hr supervision. No medication adjustment today Per Nursing Note: Pt received in the activity room sitting quietly with depressive look. "I don't why they are doing this to me. Please let me go home. I can take care of my self," he stated. Verbal support given, but unable to comprehend. Denies pain, SI, or HI. No acute distress observed. Plan: No medication adjustment indicated. Patient is ready for discharge. Patient requires 24-hour supervision 02/15: The patient was seen today. He is pleasantly confused. Patient is unable to care for self and requires placement and 24-hr supervision. No medication adjustment today Per Nursing Note: pt is pleasantly confused, medication compliant, good appetite, no complaints voiced, slept through the night, no distress noted, will continue to monitor for safety. 02/14: The patient was seen today. He is pleasantly confused. He does not answer questions appropriately and talks incomprehensibly. Per nurses note, he is calm and compliant with medications. He often presents with confusion. Patient is unable to care for self and requires placement and 24-hr supervision. No medication adjustment today 02/13: The patient was seen today. He is pleasantly confused. He does not answer questions appropriately and talks incomprehensibly. Per nurses note, he is calm and compliant with medications. He often presents with confusion. Patient is unable to care for self and requires placement and 24-hr supervision. No medication adjustment today 02/12:The patient was seen in his room this morning. He is calm and cooperative. He reports doing well. He continues to have periods of confusion. No changes made. 02/11:The patient was seen in his room this morning. He states he could not sleep last night. The patient continues to mumble, difficult to understand. 02/10:The patient was seen in his room this morning.He is calm and cooperative. He continues to be confused and hard to understand. No changes made today. 02/09: The patient was seen in his room this morning. He is calm and cooperative. He continues to be confused. Increase Seroquel to 100mg po QHS. 02/08:The patient was seen in his room this morning. The patient is confused " they're talking about me going back to school. " No changes made. 02/07: The patient was seen today. The patient is tangential and confused. " I would like to call the body liner; I'm trying to get home." 02/06:The patient was seen today. He is calm and cooperative. the patient continues to present with confusion " I still want to speak with the police." he denies suicidal/homicidal ideation. No changes made today. 02/05: The patient was seen today. He is sitting in the dayroom eating breakfast. He is calm and cooperative. The patient is confused, but pleasant. He says he slept good. The patient says "I'm hoping to go home" he then laughs. He denies SI/HI or hallucinations. 02/04 The patient was seen today. He is calm and cooperative. It's difficult for him to articulate his thoughts. He did say he's feels okay and slept fine. 02/03 The patient was seen today. He has poor insight. He is calm and cooperative. He is confused but answers some simple questions. He says "I have a hard time saying what I want to say." The patient says "I thought I was going home." He could not articulate how he was feeling. 02/02 The patient was seen today. He is a little less confused today. He says he's doing okay. The patient says "I thought I was going home today." He denies SI/HI or hallucinations. He says he slept okay. 02/01 The patient was seen today. He is confused and unable to engage in the evaluation. He is talking nonsensically. He says "I don't know who moved me here." He then says "it was supposed to been three numbers." 01/31 The patient was seen today. He is confused and has poor insight. He says "they woke up with me last night." He's unable to engage in the evaluation due to his insight. REVIEW OF SYSTEMS ROS cannot be reliably obtained from the patient due to his level of confusion MENTAL STATUS EXAMINATION Cannot be reliably be done due to his confusion. Diagnoses: Dementia with behavioral disturbances Treatment Plan: The patient's behavior, mood, sleep and appetite will be closely monitored. Patient enrolled in individual and group therapeutic sessions and encouraged to attend. Patient provided with a safe and structured environment. Patient's physical health needs will be addressed by the Hospitalist. Social Assessment will be completed and the Roller Skate Repairer will work with patient and family to ensure a suitable and safe disposition Medication adjustment will be made as clinically indicated Objective - Criteria for Continued Treatment Criteria for Continued Treatment: Improving Level of Functioning - Mental Status Mental Status: Alert - Objective Observation Participation Level: None Reason(s) For Not Participating: Unable Assessment and Plan - Patient Problems (1) Vascular dementia with behavioral disturbance Current Visit: Yes Status: Acute Medications and Allergies Allergies Allergy/AdvReac Type Severity Reaction Status Date / Time No Known Allergies Allergy Verified 01/29/22 22:41 Home Medications Medication Instructions Recorded Confirmed Last Taken Type Albuterol Sulfate [Proair 90 mcg IH BID PRN 01/30/22 01/30/22 Unknown History Respiclick] Apixaban [Eliquis] 5 mg PO BID 01/30/22 01/30/22 Unknown History AtorvaSTATin [Lipitor] 40 mg PO QHS 01/30/22 01/30/22 Unknown History Clopidogrel [Plavix] 75 mg PO QDAY 01/30/22 01/30/22 Unknown History Docusate Sodium [Colace] 100 mg PO BID 01/30/22 01/30/22 Unknown History FLUoxetine [PROzac] 20 mg PO QDAY 01/30/22 01/30/22 Unknown History Gabapentin 200 mg PO TID 01/30/22 01/30/22 Unknown History Insulin Degludec (Nf) [Tresiba 40 units SQ DAILY 01/30/22 01/30/22 Unknown History Flextouch U-100 (Nf)] Losartan [Cozaar] 50 mg PO QDAY 01/30/22 01/30/22 Unknown History Quetiapine Fumarate [SEROquel] 50 mg PO BID 01/30/22 01/30/22 Unknown History Tamsulosin [Flomax] 0.8 mg PO HS 01/30/22 01/30/22 Unknown History amLODIPine [Norvasc] 5 mg PO DAILY 01/30/22 01/30/22 Unknown History donepeziL [Aricept] 5 mg PO HS 01/30/22 01/30/22 Unknown History Active Meds: Active Medications Albuterol (Albuterol 2.5 Mg/3 Ml Nebu) 2.5 mg IH Q4HRT PRN PRN Reason: Shortness Of Breath Amlodipine Besylate (Amlodipine 5 Mg Tab) 5 mg PO DAILY [facility] Last Admin: 02/16/22 09:08 Dose: 5 mg Atorvastatin Calcium (Atorvastatin 40 Mg Tab) 40 mg PO QHS [facility] Last Admin: 02/15/22 21:25 Dose: 40 mg Clopidogrel Bisulfate (Clopidogrel 75 Mg Tab) 75 mg PO QDAY [facility] Last Admin: 02/16/22 09:07 Dose: 75 mg Dextrose (Dextrose 50% In Water (25gm) 50 Ml Syringe) 50 ml IV Q30MIN PRN; Protocol PRN Reason: Hypoglycemia Docusate Sodium (Docusate Sodium 100 Mg Cap) 100 mg PO BID [facility] Last Admin: 02/16/22 09:08 Dose: 100 mg Donepezil HCl (Donepezil 5 Mg Tab) 5 mg PO [facility] Last Admin: 02/15/22 21:25 Dose: 5 mg Fluoxetine HCl (Fluoxetine 10 Mg Tab) 30 mg PO QDAY [facility] Last Admin: 02/16/22 09:07 Dose: 30 mg Gabapentin (Gabapentin 100 Mg Cap) 200 mg PO TID [facility] Last Admin: 02/16/22 09:08 Dose: 200 mg Insulin Glargine (Insulin Glargine 100 Units/Ml) 40 units SUB-Q QHS [facility] Last Admin: 02/15/22 22:50 Dose: 40 units Insulin Human Lispro (Insulin Lispro 100 Unit/Ml) 0 unit SUB-Q ACHS TIFFANIE; Prot ocol Last Admin: 02/16/22 09:07 Dose: Not Given Losartan Potassium (Losartan 50 Mg Tab) 50 mg PO QDAY [facility] Last Admin: 02/16/22 09:08 Dose: 50 mg Quetiapine Fumarate (Quetiapine 100 Mg Tab) 100 mg PO QHS [facility] Last Admin: 02/15/22 21:25 Dose: 100 mg Quetiapine Fumarate (Quetiapine 25 Mg Tab) 50 mg PO DAILY [facility] Last Admin: 02/16/22 09:07 Dose: 50 mg Tamsulosin HCl (Tamsulosin 0.4 Mg Cap) 0.8 mg PO HS [facility] Last Admin: 02/15/22 21:24 Dose: 0.8 mg Results - Results Labs/Vitals: Laboratory Last Values WBC 5.7 K/mm3 (4.5-11.0) 01/30/22 09:02 RBC 4.87 M/mm3 (3.65-5.03) 01/30/22 09:02 Hgb 13.5 gm/dl (11.8-15.2) 01/30/22 09:02 Hct 41.0 % (35.5-45.6) 01/30/22 09:02 MCV 84 fl (84-94) 01/30/22 09:02 MCH 28 pg (28-32) 01/30/22 09:02 MCHC 33 % (32-34) 01/30/22 09:02 RDW 14.2 % (13.2-15.2) 01/30/22 09:02 Plt Count 116 K/mm3 (140-440) L 01/30/22 09:02 Lymph % (Auto) 26.8 % (13.4-35.0) 01/30/22 09:02 [place] % (Auto) 10.4 % (0.0-7.3) H 01/30/22 09:02 Eos % (Auto) 1.6 % (0.0-4.3) 01/30/22 09:02 Baso % (Auto) 0.5 % (0.0-1.8) 01/30/22 09:02 Lymph # (Auto) 1.5 K/mm3 (1.2-5.4) 01/30/22 09:02 [place] # (Auto) 0.6 K/mm3 (0.0-0.8) 01/30/22 09:02 Eos # (Auto) 0.1 K/mm3 (0.0-0.4) 01/30/22 09:02 Baso # (Auto) 0.0 K/mm3 (0.0-0.1) 01/30/22 09:02 Seg Neutrophils % 60.7 % (40.0-70.0) 01/30/22 09:02 Seg Neutrophils # 3.4 K/mm3 (1.8-7.7) 01/30/22 09:02 Sodium 136 mmol/L (137-145) L 01/30/22 09:02 Potassium 4.2 mmol/L (3.6-5.0) 01/30/22 09:02 Chloride 102.6 mmol/L (98-107) 01/30/22 09:02 Carbon Dioxide 22 mmol/L (22-30) 01/30/22 09:02 Anion Gap 16 mmol/L 01/30/22 09:02 BUN 16 mg/dL (9-20) 01/30/22 09:02 Creatinine 1.2 mg/dL (0.8-1.3) 01/30/22 09:02 Estimated GFR > 60 ml/min 01/30/22 09:02 BUN/Creatinine Ratio 13 % 01/30/22 09:02 Glucose 243 mg/dL (75-100) H 01/30/22 09:02 POC Glucose 125 mg/dL (70-105) H 02/16/22 07:35 Hemoglobin A1c 8.9 % (4-6) H 01/30/22 09:02 Calcium 9.4 mg/dL (8.4-10.2) 01/30/22 09:02 Total Bilirubin 0.50 mg/dL (0.1-1.2) 01/30/22 09:02 AST 17 units/L (5-40) 01/30/22 09:02 ALT 16 units/L (7-56) 01/30/22 09:02 Alkaline Phosphatase 89 units/L (35-129) 01/30/22 09:02 Total Protein 7.6 g/dL (6.3-8.2) 01/30/22 09:02 Albumin 4.1 g/dL (3.9-5) 01/30/22 09:02 Albumin/Globulin Ratio 1.2 % 01/30/22 09:02 Triglycerides 76 mg/dL (2-149) 01/30/22 09:02 Cholesterol 100 mg/dL (50-199) 01/30/22 09:02 LDL Cholesterol Direct 38 mg/dL (50-130) L 01/30/22 09:02 HDL Cholesterol 50 mg/dL (40-59) 01/30/22 09:02 Cholesterol/HDL Ratio 2.00 % 01/30/22 09:02 TSH 1.020 mlU/mL (0.270-4.200) 01/30/22 09:02 Hepatitis A IgM Ab Non-reactive (NonReactive) 01/30/22 09:02 Hep Bs Antigen Non-reactive (Negative) 01/30/22 09:02 Hep B Core IgM Ab Non-reactive (NonReactive) 01/30/22 09:02 Hepatitis C Antibody Non-reactive (NonReactive) 01/30/22 09:02 Last Vital Signs Temp 98.4 F 02/16/22 08:49 Pulse 79 02/16/22 09:08 Resp 20 02/16/22 08:49 BP 131/70 02/16/22 09:08 Pulse Ox 98 02/16/22 08:49
[2022-02-16] MEDS: TAMSULOSIN 0.4 MG CAP PO SCH (21:09)
[2022-02-16] MEDS: QUEtiapine 100 MG TAB PO SCH (21:10)
[2022-02-16] MEDS: DONEPEZIL 5 MG TAB PO SCH (21:10)
[2022-02-16] MEDS: INSULIN GLARGINE 100 UNITS/ML SUB-Q SCH (21:25)
[2022-02-17] MEDS: QUEtiapine 25 MG TAB PO SCH (09:27)
[2022-02-17] MEDS: FLUoxetine 10 MG TAB PO SCH (09:27)
[2022-02-17] MEDS: DOCUSATE SODIUM 100 MG CAP PO SCH ×2 (09:27→22:10)
[2022-02-17] MEDS: GABAPENTIN 100 MG CAP PO SCH ×3 (09:27→22:10)
[2022-02-17] MEDS: amLODIPine 5 MG TAB PO SCH (09:28)
[2022-02-17] MEDS: CLOPIDOGREL 75 MG TAB PO SCH (09:28)
[2022-02-17] MEDS: LOSARTAN 50 MG TAB PO SCH (09:30)
[2022-02-17] MEDS: INSULIN LISPRO 100 UNIT/ML SUB-Q SCH ×4 (09:31→23:48)
--- NOTE | 2022-02-17 17:35 | Progress Note ---
Subjective Date of service: 02/17/22 Principal diagnosis: Dementia w/behavioral disturbance Subjective Comment: The patient was seen today. He is more organized than last week when I evaluated him. He is pleasant. He says "how are to with your beautiful self." He says he slept well/ The patient says his appetite is good. He denies SI/HI or hallucinations of any kind. Will discuss with the discharge planning for the patient. REVIEW OF SYSTEMS MENTAL STATUS EXAMINATION Diagnoses: Dementia with behavioral disturbances Treatment Plan: Patient admitted for inpatient psychiatric evaluation, medication adjustment and close monitoring The patient's behavior, mood, sleep and appetite will be closely monitored. Patient enrolled in individual and group therapeutic sessions and encouraged to attend. Patient provided with a safe and structured environment. Patient's physical health needs will be addressed by the Hospitalist. Hospitalist Consulted Labs including CBC, CMP, Lipid profile and Hemoglobin A1C levels ordered for baseline reference Social Assessment will be completed and the Food Writer will work with patient and family to ensure a suitable and safe disposition Medication adjustment will be made as clinically indicated No changes made today. Usual Wellness Adventism/Preservation: - Start Trazodone 50 mg po QHS & 50 mg po QHS PRN between 10 PM & 2 AM for insomnia - Start Melatonin 5 mg po QHS to promote circadian rhythm The patient agreed on the treatment plan, understood the risk, benefit, alternative treatment, potential consequence of no treatment, and gave informed consent. Estimated days: 7 Medications and Allergies Allergies Allergy/AdvReac Type Severity Reaction Status Date / Time No Known Allergies Allergy Verified 01/29/22 22:41 Home Medications Medication Instructions Recorded Confirmed Last Taken Type Albuterol Sulfate [Proair 90 mcg IH BID PRN 01/30/22 01/30/22 Unknown History Respiclick] Apixaban [Eliquis] 5 mg PO BID 01/30/22 01/30/22 Unknown History AtorvaSTATin [Lipitor] 40 mg PO QHS 01/30/22 01/30/22 Unknown History Clopidogrel [Plavix] 75 mg PO QDAY 01/30/22 01/30/22 Unknown History Docusate Sodium [Colace] 100 mg PO BID 01/30/22 01/30/22 Unknown History FLUoxetine [PROzac] 20 mg PO QDAY 01/30/22 01/30/22 Unknown History Gabapentin 200 mg PO TID 01/30/22 01/30/22 Unknown History Insulin Degludec (Nf) [Tresiba 40 units SQ DAILY 01/30/22 01/30/22 Unknown History Flextouch U-100 (Nf)] Losartan [Cozaar] 50 mg PO QDAY 01/30/22 01/30/22 Unknown History Quetiapine Fumarate [SEROquel] 50 mg PO BID 01/30/22 01/30/22 Unknown History Tamsulosin [Flomax] 0.8 mg PO HS 01/30/22 01/30/22 Unknown History amLODIPine [Norvasc] 5 mg PO DAILY 01/30/22 01/30/22 Unknown History donepeziL [Aricept] 5 mg PO HS 01/30/22 01/30/22 Unknown History Active Meds: Active Medications Albuterol (Albuterol 2.5 Mg/3 Ml Nebu) 2.5 mg IH Q4HRT PRN PRN Reason: Shortness Of Breath Amlodipine Besylate (Amlodipine 5 Mg Tab) 5 mg PO DAILY [facility] Last Admin: 02/17/22 09:28 Dose: 5 mg Atorvastatin Calcium (Atorvastatin 40 Mg Tab) 40 mg PO QHS [facility] Last Admin: 02/16/22 21:09 Dose: 40 mg Clopidogrel Bisulfate (Clopidogrel 75 Mg Tab) 75 mg PO QDAY [facility] Last Admin: 02/17/22 09:28 Dose: 75 mg Dextrose (Dextrose 50% In Water (25gm) 50 Ml Syringe) 50 ml IV Q30MIN PRN; Protocol PRN Reason: Hypoglycemia Docusate Sodium (Docusate Sodium 100 Mg Cap) 100 mg PO BID [facility] Last Admin: 02/17/22 09:27 Dose: 100 mg Donepezil HCl (Donepezil 5 Mg Tab) 5 mg PO [facility] Last Admin: 02/16/22 21:10 Dose: 5 mg Fluoxetine HCl (Fluoxetine 10 Mg Tab) 30 mg PO QDAY [facility] Last Admin: 02/17/22 09:27 Dose: 30 mg Gabapentin (Gabapentin 100 Mg Cap) 200 mg PO TID [facility] Last Admin: 02/17/22 14:31 Dose: 200 mg Insulin Glargine (Insulin Glargine 100 Units/Ml) 40 units SUB-Q QHS [facility] Last Admin: 02/16/22 21:25 Dose: 40 units Insulin Human Lispro (Insulin Lispro 100 Unit/Ml) 0 unit SUB-Q ACHS [facility]; Protocol Last Admin: 02/17/22 12:42 Dose: 3 unit Losartan Potassium (Losartan 50 Mg Tab) 50 mg PO QDAY [facility] Last Admin: 02/17/22 09:30 Dose: 50 mg Quetiapine Fumarate (Quetiapine 100 Mg Tab) 100 mg PO QHS [facility] Last Admin: 02/16/22 21:10 Dose: 100 mg Quetiapine Fumarate (Quetiapine 25 Mg Tab) 50 mg PO DAILY [facility] Last Admin: 02/17/22 09:27 Dose: 50 mg Tamsulosin HCl (Tamsulosin 0.4 Mg Cap) 0.8 mg PO HS [facility] Last Admin: 02/16/22 21:09 Dose: 0.8 mg Results - Results Labs/Vitals: Laboratory Last Values WBC 5.7 K/mm3 (4.5-11.0) 01/30/22 09:02 RBC 4.87 M/mm3 (3.65-5.03) 01/30/22 09:02 Hgb 13.5 gm/dl (11.8-15.2) 01/30/22 09:02 Hct 41.0 % (35.5-45.6) 01/30/22 09:02 MCV 84 fl (84-94) 01/30/22 09:02 MCH 28 pg (28-32) 01/30/22 09:02 MCHC 33 % (32-34) 01/30/22 09:02 RDW 14.2 % (13.2-15.2) 01/30/22 09:02 Plt Count 116 K/mm3 (140-440) L 01/30/22 09:02 Lymph % (Auto) 26.8 % (13.4-35.0) 01/30/22 09:02 [place] % (Auto) 10.4 % (0.0-7.3) H 01/30/22 09:02 Eos % (Auto) 1.6 % (0.0-4.3) 01/30/22 09:02 Baso % (Auto) 0.5 % (0.0-1.8) 01/30/22 09:02 Lymph # (Auto) 1.5 K/mm3 (1.2-5.4) 01/30/22 09:02 [place] # (Auto) 0.6 K/mm3 (0.0-0.8) 01/30/22 09:02 Eos # (Auto) 0.1 K/mm3 (0.0-0.4) 01/30/22 09:02 Baso # (Auto) 0.0 K/mm3 (0.0-0.1) 01/30/22 09:02 Seg Neutrophils % 60.7 % (40.0-70.0) 01/30/22 09:02 Seg Neutrophils # 3.4 K/mm3 (1.8-7.7) 01/30/22 09:02 Sodium 136 mmol/L (137-145) L 01/30/22 09:02 Potassium 4.2 mmol/L (3.6-5.0) 01/30/22 09:02 Chloride 102.6 mmol/L (98-107) 01/30/22 09:02 Carbon Dioxide 22 mmol/L (22-30) 01/30/22 09:02 Anion Gap 16 mmol/L 01/30/22 09:02 BUN 16 mg/dL (9-20) 01/30/22 09:02 Creatinine 1.2 mg/dL (0.8-1.3) 01/30/22 09:02 Estimated GFR > 60 ml/min 01/30/22 09:02 BUN/Creatinine Ratio 13 % 01/30/22 09:02 Glucose 243 mg/dL (75-100) H 01/30/22 09:02 POC Glucose 288 mg/dL (70-105) H 02/17/22 16:23 Hemoglobin A1c 8.9 % (4-6) H 01/30/22 09:02 Calcium 9.4 mg/dL (8.4-10.2) 01/30/22 09:02 Total Bilirubin 0.50 mg/dL (0.1-1.2) 01/30/22 09:02 AST 17 units/L (5-40) 01/30/22 09:02 ALT 16 units/L (7-56) 01/30/22 09:02 Alkaline Phosphatase 89 units/L (35-129) 01/30/22 09:02 Total Protein 7.6 g/dL (6.3-8.2) 01/30/22 09:02 Albumin 4.1 g/dL (3.9-5) 01/30/22 09:02 Albumin/Globulin Ratio 1.2 % 01/30/22 09:02 Triglycerides 76 mg/dL (2-149) 01/30/22 09:02 Cholesterol 100 mg/dL (50-199) 01/30/22 09:02 LDL Cholesterol Direct 38 mg/dL (50-130) L 01/30/22 09:02 HDL Cholesterol 50 mg/dL (40-59) 01/30/22 09:02 Cholesterol/HDL Ratio 2.00 % 01/30/22 09:02 TSH 1.020 mlU/mL (0.270-4.200) 01/30/22 09:02 Hepatitis A IgM Ab Non-reactive (NonReactive) 01/30/22 09:02 Hep Bs Antigen Non-reactive (Negative) 01/30/22 09: Hep B Core IgM Ab Non-reactive (NonReactive) 01/30/22 09:02 Hepatitis C Antibody Non-reactive (NonReactive) 01/30/22 09:02 Last Vital Signs Temp 98.1 F 02/17/22 07:23 Pulse 82 02/17/22 09:28 Resp 16 02/17/22 07:23 BP 117/70 02/17/22 09:28 Pulse Ox 98 02/17/22 07:23
[2022-02-17] MEDS: DONEPEZIL 5 MG TAB PO SCH (22:10)
[2022-02-17] MEDS: QUEtiapine 100 MG TAB PO SCH (22:10)
[2022-02-17] MEDS: TAMSULOSIN 0.4 MG CAP PO SCH (22:11)
[2022-02-17] MEDS: INSULIN GLARGINE 100 UNITS/ML SUB-Q SCH (23:49)
[2022-02-18] MEDS: INSULIN LISPRO 100 UNIT/ML SUB-Q SCH ×4 (08:08→21:09)
[2022-02-18] MEDS: FLUoxetine 10 MG TAB PO SCH (09:12)
[2022-02-18] MEDS: QUEtiapine 25 MG TAB PO SCH (09:12)
[2022-02-18] MEDS: GABAPENTIN 100 MG CAP PO SCH ×3 (09:12→20:56)
[2022-02-18] MEDS: amLODIPine 5 MG TAB PO SCH (09:13)
[2022-02-18] MEDS: DOCUSATE SODIUM 100 MG CAP PO SCH ×2 (09:13→21:08)
[2022-02-18] MEDS: LOSARTAN 50 MG TAB PO SCH (09:13)
[2022-02-18] MEDS: CLOPIDOGREL 75 MG TAB PO SCH (09:13)
--- NOTE | 2022-02-18 10:06 | Progress Note ---
Subjective Date of service: 02/18/22 Principal diagnosis: Dementia w/behavioral disturbance Subjective Comment: The patient was seen today. He is calm and cooperative. He is pleasant and says he slept well. The patient says he feels "pretty good." He denies SI/HI or hallucinations of any kind. He is awaiting placement. 02/17 The patient was seen today. He is more organized than last week when I evaluated him. He is pleasant. He says "how are to with your beautiful self." He says he slept well/ The patient says his appetite is good. He denies SI/HI or hallucinations of any kind. Will discuss with the discharge planning for the patient. REVIEW OF SYSTEMS MENTAL STATUS EXAMINATION Diagnoses: Dementia with behavioral disturbances Treatment Plan: Patient admitted for inpatient psychiatric evaluation, medication adjustment and close monitoring The patient's behavior, mood, sleep and appetite will be closely monitored. Patient enrolled in individual and group therapeutic sessions and encouraged to attend. Patient provided with a safe and structured environment. Patient's physical health needs will be addressed by the Hospitalist. Hospitalist Consulted Labs including CBC, CMP, Lipid profile and Hemoglobin A1C levels ordered for baseline reference Social Assessment will be completed and the Stage Set Up Worker will work with patient and family to ensure a suitable and safe disposition Medication adjustment will be made as clinically indicated No changes made today. Usual Wellness Zoroastrian/Preservation: - Start Trazodone 50 mg po QHS & 50 mg po QHS PRN between 10 PM & 2 AM for insomnia - Start Melatonin 5 mg po QHS to promote circadian rhythm The patient agreed on the treatment plan, understood the risk, benefit, alternative treatment, potential consequence of no treatment, and gave informed consent. Estimated days: 7 Medications and Allergies Allergies Allergy/AdvReac Type Severity Reaction Status Date / Time No Known Allergies Allergy Verified 01/29/22 22:41 Home Medications Medication Instructions Recorded Confirmed Last Taken Type Albuterol Sulfate [Proair 90 mcg IH BID PRN 01/30/22 01/30/22 Unknown History Respiclick] Apixaban [Eliquis] 5 mg PO BID 01/30/22 01/30/22 Unknown History AtorvaSTATin [Lipitor] 40 mg PO QHS 01/30/22 01/30/22 Unknown History Clopidogrel [Plavix] 75 mg PO QDAY 01/30/22 01/30/22 Unknown History Docusate Sodium [Colace] 100 mg PO BID 01/30/22 01/30/22 Unknown History FLUoxetine [PROzac] 20 mg PO QDAY 01/30/22 01/30/22 Unknown History Gabapentin 200 mg PO TID 01/30/22 01/30/22 Unknown History Insulin Degludec (Nf) [Tresiba 40 units SQ DAILY 01/30/22 01/30/22 Unknown History Flextouch U-100 (Nf)] Losartan [Cozaar] 50 mg PO QDAY 01/30/22 01/30/22 Unknown History Quetiapine Fumarate [SEROquel] 50 mg PO BID 01/30/22 01/30/22 Unknown History Tamsulosin [Flomax] 0.8 mg PO HS 01/30/22 01/30/22 Unknown History amLODIPine [Norvasc] 5 mg PO DAILY 01/30/22 01/30/22 Unknown History donepeziL [Aricept] 5 mg PO HS 01/30/22 01/30/22 Unknown History Active Meds: Active Medications Albuterol (Albuterol 2.5 Mg/3 Ml Nebu) 2.5 mg IH Q4HRT PRN PRN Reason: Shortness Of Breath Amlodipine Besylate (Amlodipine 5 Mg Tab) 5 mg PO DAILY [facility] Last Admin: 02/18/22 09:13 Dose: 5 mg Atorvastatin Calcium (Atorvastatin 40 Mg Tab) 40 mg PO QHS [facility] Last Admin: 02/17/22 22:10 Dose: 40 mg Clopidogrel Bisulfate (Clopidogrel 75 Mg Tab) 75 mg PO QDAY [facility] Last Admin: 02/18/22 09:13 Dose: 75 mg Dextrose (Dextrose 50% In Water (25gm) 50 Ml Syringe) 50 ml IV Q30MIN PRN; Protocol PRN Reason: Hypoglycemia Docusate Sodium (Docusate Sodium 100 Mg Cap) 100 mg PO BID [facility] Last Admin: 02/18/22 09:13 Dose: 100 mg Donepezil HCl (Donepezil 5 Mg Tab) 5 mg PO [facility] Last Admin: 02/17/22 22:10 Dose: 5 mg Fluoxetine HCl (Fluoxetine 10 Mg Tab) 30 mg PO QDAY [facility] Last Admin: 02/18/22 09:12 Dose: 30 mg Gabapentin (Gabapentin 100 Mg Cap) 200 mg PO TID [facility] Last Admin: 02/18/22 09:12 Dose: 200 mg Insulin Glargine (Insulin Glargine 100 Units/Ml) 40 units SUB-Q QHS [facility] Last Admin: 02/17/22 23:49 Dose: Not Given Insulin Human Lispro (Insulin Lispro 100 Unit/Ml) 0 unit SUB-Q ACHS [facility]; Protocol Last Admin: 02/18/22 08:08 Dose: Not Given Losartan Potassium (Losartan 50 Mg Tab) 50 mg PO QDAY [facility] Last Admin: 02/18/22 09:13 Dose: 50 mg Quetiapine Fumarate (Quetiapine 100 Mg Tab) 100 mg PO QHS [facility] Last Admin: 02/17/22 22:10 Dose: 100 mg Quetiapine Fumarate (Quetiapine 25 Mg Tab) 50 mg PO DAILY [facility] Last Admin: 02/18/22 09:12 Dose: 50 mg Tamsulosin HCl (Tamsulosin 0.4 Mg Cap) 0.8 mg PO [facility] Last Admin: 02/17/22 22:11 Dose: 0.8 mg Results - Results Labs/Vitals: Laboratory Last Values WBC 5.7 K/mm3 (4.5-11.0) 01/30/22 09:02 RBC 4.87 M/mm3 (3.65-5.03) 01/30/22 09:02 Hgb 13.5 gm/dl (11.8-15.2) 01/30/22 09:02 Hct 41.0 % (35.5-45.6) 01/30/22 09:02 MCV 84 fl (84-94) 01/30/22 09:02 MCH 28 pg (28-32) 01/30/22 09:02 MCHC 33 % (32-34) 01/30/22 09:02 RDW 14.2 % (13.2-15.2) 01/30/22 09:02 Plt Count 116 K/mm3 (140-440) L 01/30/22 09:02 Lymph % (Auto) 26.8 % (13.4-35.0) 01/30/22 09:02 [place] % (Auto) 10.4 % (0.0-7.3) H 01/30/22 09:02 Eos % (Auto) 1.6 % (0.0-4.3) 01/30/22 09:02 Baso % (Auto) 0.5 % (0.0-1.8) 01/30/22 09:02 Lymph # (Auto) 1.5 K/mm3 (1.2-5.4) 01/30/22 09:02 [place] # (Auto) 0.6 K/mm3 (0.0-0.8) 01/30/22 09:02 Eos # (Auto) 0.1 K/mm3 (0.0-0.4) 01/30/22 09:02 Baso # (Auto) 0.0 K/mm3 (0.0-0.1) 01/30/22 09:02 Seg Neutrophils % 60.7 % (40.0-70.0) 01/30/22 09:02 Seg Neutrophils # 3.4 K/mm3 (1.8-7.7) 01/30/22 09:02 Sodium 136 mmol/L (137-145) L 01/30/22 09:02 Potassium 4.2 mmol/L (3.6-5.0) 01/30/22 09:02 Chloride 102.6 mmol/L (98-107) 01/30/22 09:02 Carbon Dioxide 22 mmol/L (22-30) 01/30/22 09:02 Anion Gap 16 mmol/L 01/30/22 09:02 BUN 16 mg/dL (9-20) 01/30/22 09:02 Creatinine 1.2 mg/dL (0.8-1.3) 01/30/22 09:02 Estimated GFR > 60 ml/min 01/30/22 09:02 BUN/Creatinine Ratio 13 % 01/30/22 09:02 Glucose 243 mg/dL (75-100) H 01/30/22 09:02 POC Glucose 149 mg/dL (70-105) H 02/18/22 06:46 Hemoglobin A1c 8.9 % (4-6) H 01/30/22 09:02 Calcium 9.4 mg/dL (8.4-10.2) 01/30/22 09:02 Total Bilirubin 0.50 mg/dL (0.1-1.2) 01/30/22 09:02 AST 17 units/L (5-40) 01/30/22 09:02 ALT 16 units/L (7-56) 01/30/22 09:02 Alkaline Phosphatase 89 units/L (35-129) 01/30/22 09:02 Total Protein 7.6 g/dL (6.3-8.2) 01/30/22 09:02 Albumin 4.1 g/dL (3.9-5) 01/30/22 09:02 Albumin/Globulin Ratio 1.2 % 01/30/22 09:02 Triglycerides 76 mg/dL (2-149) 01/30/22 09: Cholesterol 100 mg/dL (50-199) 01/30/22 09:02 LDL Cholesterol Direct 38 mg/dL (50-130) L 01/30/22 09:02 HDL Cholesterol 50 mg/dL (40-59) 01/30/22 09:02 Cholesterol/HDL Ratio 2.00 % 01/30/22 09:02 TSH 1.020 mlU/mL (0.270-4.200) 01/30/22 09:02 Hepatitis A IgM Ab Non-reactive (NonReactive) 01/30/22 09: Hep Bs Antigen Non-reactive (Negative) 01/30/22 09: Hep B Core IgM Ab Non-reactive (NonReactive) 01/30/22 09:02 Hepatitis C Antibody Non-reactive (NonReactive) 01/30/22 09:02 Last Vital Signs Temp 98.6 F 02/17/22 19:29 Pulse 82 02/18/22 09:13 Resp 17 02/17/22 19:29 BP 111/74 02/18/22 09:13 Pulse Ox 98 02/17/22 19:29
[2022-02-18] MEDS: DONEPEZIL 5 MG TAB PO SCH (21:08)
[2022-02-18] MEDS: QUEtiapine 100 MG TAB PO SCH (21:08)
[2022-02-18] MEDS: INSULIN GLARGINE 100 UNITS/ML SUB-Q SCH (21:09)
[2022-02-18] MEDS: TAMSULOSIN 0.4 MG CAP PO SCH (21:09)
[2022-02-19] MEDS: INSULIN LISPRO 100 UNIT/ML SUB-Q SCH ×4 (07:18→21:16)
[2022-02-19] MEDS: GABAPENTIN 100 MG CAP PO SCH ×3 (07:19→20:38)
[2022-02-19] MEDS: FLUoxetine 10 MG TAB PO SCH (09:30)
[2022-02-19] MEDS: QUEtiapine 25 MG TAB PO SCH (09:30)
[2022-02-19] MEDS: DOCUSATE SODIUM 100 MG CAP PO SCH ×2 (09:30→21:09)
[2022-02-19] MEDS: CLOPIDOGREL 75 MG TAB PO SCH (09:30)
[2022-02-19] MEDS: LOSARTAN 50 MG TAB PO SCH (09:31)
[2022-02-19] MEDS: amLODIPine 5 MG TAB PO SCH (09:31)
--- NOTE | 2022-02-19 09:41 | Progress Note ---
Subjective Date of service: 02/19/22 Principal diagnosis: Dementia w/behavioral disturbance Subjective Comment: The patient was seen today. He is calm, and cooperative. He is articulating his thoughts much better. He says he feels pretty good and he slept well. He denies SI/HI or hallucinations. 02/18 The patient was seen today. He is calm and cooperative. He is pleasant and says he slept well. The patient says he feels "pretty good." He denies SI/HI or hallucinations of any kind. He is awaiting placement. 02/17 The patient was seen today. He is more organized than last week when I evaluated him. He is pleasant. He says "how are to with your beautiful self." He says he slept well/ The patient says his appetite is good. He denies SI/HI or hallucinations of any kind. Will discuss with the discharge planning for the patient. REVIEW OF SYSTEMS MENTAL STATUS EXAMINATION Diagnoses: Dementia with behavioral disturbances Treatment Plan: Patient admitted for inpatient psychiatric evaluation, medication adjustment and close monitoring The patient's behavior, mood, sleep and appetite will be closely monitored. Patient enrolled in individual and group therapeutic sessions and encouraged to attend. Patient provided with a safe and structured environment. Patient's physical health needs will be addressed by the Hospitalist. Hospitalist Consulted Labs including CBC, CMP, Lipid profile and Hemoglobin A1C levels ordered for baseline reference Social Assessment will be completed and the Clinical Asst will work with pat ient and family to ensure a suitable and safe disposition Medication adjustment will be made as clinically indicated No changes made today. Usual Wellness Hinduism/Preservation: - Start Trazodone 50 mg po QHS & 50 mg po QHS PRN between 10 PM & 2 AM for insomnia - Start Melatonin 5 mg po QHS to promote circadian rhythm The patient agreed on the treatment plan, understood the risk, benefit, alternative treatment, potential consequence of no treatment, and gave informed consent. Estimated days: 7 Medications and Allergies Allergies Allergy/AdvReac Type Severity Reaction Status Date / Time No Known Allergies Allergy Verified 01/29/22 22:41 Home Medications Medication Instructions Recorded Confirmed Last Taken Type Albuterol Sulfate [Proair 90 mcg IH BID PRN 01/30/22 01/30/22 Unknown History Respiclick] Apixaban [Eliquis] 5 mg PO BID 01/30/22 01/30/22 Unknown History AtorvaSTATin [Lipitor] 40 mg PO QHS 01/30/22 01/30/22 Unknown History Clopidogrel [Plavix] 75 mg PO QDAY 01/30/22 01/30/22 Unknown History Docusate Sodium [Colace] 100 mg PO BID 01/30/22 01/30/22 Unknown History FLUoxetine [PROzac] 20 mg PO QDAY 01/30/22 01/30/22 Unknown History Gabapentin 200 mg PO TID 01/30/22 01/30/22 Unknown History Insulin Degludec (Nf) [Tresiba 40 units SQ DAILY 01/30/22 01/30/22 Unknown History Flextouch U-100 (Nf)] Losartan [Cozaar] 50 mg PO QDAY 01/30/22 01/30/22 Unknown History Quetiapine Fumarate [SEROquel] 50 mg PO BID 01/30/22 01/30/22 Unknown History Tamsulosin [Flomax] 0.8 mg PO 01/30/22 01/30/22 Unknown History amLODIPine [Norvasc] 5 mg PO DAILY 01/30/22 01/30/22 Unknown History donepeziL [Aricept] 5 mg PO 01/30/22 01/30/22 Unknown History Active Meds: Active Medications Albuterol (Albuterol 2.5 Mg/3 Ml Nebu) 2.5 mg IH Q4HRT PRN PRN Reason: Shortness Of Breath Amlodipine Besylate (Amlodipine 5 Mg Tab) 5 mg PO DAILY [facility] Last Admin: 02/19/22 09:31 Dose: 5 mg Atorvastatin Calcium (Atorvastatin 40 Mg Tab) 40 mg PO QHS [facility] Last Admin: 02/18/22 21:08 Dose: 40 mg Clopidogrel Bisulfate (Clopidogrel 75 Mg Tab) 75 mg PO QDAY [facility] Last Admin: 02/19/22 09:30 Dose: 75 mg Dextrose (Dextrose 50% In Water (25gm) 50 Ml Syringe) 50 ml IV Q30MIN PRN; Protocol PRN Reason: Hypoglycemia Docusate Sodium (Docusate Sodium 100 Mg Cap) 100 mg PO BID [facility] Last Admin: 02/19/22 09:30 Dose: 100 mg Donepezil HCl (Donepezil 5 Mg Tab) 5 mg PO [facility] Last Admin: 02/18/22 21:08 Dose: 5 mg Fluoxetine HCl (Fluoxetine 10 Mg Tab) 30 mg PO QDAY [facility] Last Admin: 02/19/22 09:30 Dose: 30 mg Gabapentin (Gabapentin 100 Mg Cap) 200 mg PO TID [facility] Last Admin: 02/19/22 07:19 Dose: 200 mg Insulin Glargine (Insulin Glargine 100 Units/Ml) 40 units SUB-Q QHS [facility] Last Admin: 02/18/22 21:09 Dose: 40 units Insulin Human Lispro (Insulin Lispro 100 Unit/Ml) 0 unit SUB-Q [facility]; Protocol Last Admin: 02/19/22 07:18 Dose: 3 unit Losartan Potassium (Losartan 50 Mg Tab) 50 mg PO QDAY [facility] Last Admin: 02/19/22 09:31 Dose: Not Given Quetiapine Fumarate (Quetiapine 100 Mg Tab) 100 mg PO QHS [facility] Last Admin: 02/18/22 21:08 Dose: 100 mg Quetiapine Fumarate (Quetiapine 25 Mg Tab) 50 mg PO DAILY [facility] Last Admin: 02/19/22 09:30 Dose: 50 mg Tamsulosin HCl (Tamsulosin 0.4 Mg Cap) 0.8 mg PO [facility] Last Admin: 02/18/22 21:09 Dose: 0.8 mg Results - Results Labs/Vitals: Laboratory Last Values WBC 5.7 K/mm3 (4.5-11.0) 01/30/22 09:02 RBC 4.87 M/mm3 (3.65-5.03) 01/30/22 09:02 Hgb 13.5 gm/dl (11.8-15.2) 01/30/22 09:02 Hct 41.0 % (35.5-45.6) 01/30/22 09:02 MCV 84 fl (84-94) 01/30/22 09:02 MCH 28 pg (28-32) 01/30/22 09:02 MCHC 33 % (32-34) 01/30/22 09:02 RDW 14.2 % (13.2-15.2) 01/30/22 09:02 Plt Count 116 K/mm3 (140-440) L 01/30/22 09:02 Lymph % (Auto) 26.8 % (13.4-35.0) 01/30/22 09:02 [place] % (Auto) 10.4 % (0.0-7.3) H 01/30/22 09:02 Eos % (Auto) 1.6 % (0.0-4.3) 01/30/22 09:02 Baso % (Auto) 0.5 % (0.0-1.8) 01/30/22 09:02 Lymph # (Auto) 1.5 K/mm3 (1.2-5.4) 01/30/22 09:02 [place] # (Auto) 0.6 K/mm3 (0.0-0.8) 01/30/22 09:02 Eos # (Auto) 0.1 K/mm3 (0.0-0.4) 01/30/22 09:02 Baso # (Auto) 0.0 K/mm3 (0.0-0.1) 01/30/22 09:02 Seg Neutrophils % 60.7 % (40.0-70.0) 01/30/22 09:02 Seg Neutrophils # 3.4 K/mm3 (1.8-7.7) 01/30/22 09:02 Sodium 136 mmol/L (137-145) L 01/30/22 09:02 Potassium 4.2 mmol/L (3.6-5.0) 01/30/22 09:02 Chloride 102.6 mmol/L (98-107) 01/30/22 09:02 Carbon Dioxide 22 mmol/L (22-30) 01/30/22 09:02 Anion Gap 16 mmol/L 01/30/22 09:02 BUN 16 mg/dL (9-20) 01/30/22 09:02 Creatinine 1.2 mg/dL (0.8-1.3) 01/30/22 09:02 Estimated GFR > 60 ml/min 01/30/22 09:02 BUN/Creatinine Ratio 13 % 01/30/22 09:02 Glucose 243 mg/dL (75-100) H 01/30/22 09:02 POC Glucose 270 mg/dL (70-105) H 02/18/22 20:06 Hemoglobin A1c 8.9 % (4-6) H 01/30/22 09:02 Calcium 9.4 mg/dL (8.4-10.2) 01/30/22 09:02 Total Bilirubin 0.50 mg/dL (0.1-1.2) 01/30/22 09:02 AST 17 units/L (5-40) 01/30/22 09:02 ALT 16 units/L (7-56) 01/30/22 09:02 Alkaline Phosphatase 89 units/L (35-129) 01/30/22 09:02 Total Protein 7.6 g/dL (6.3-8.2) 01/30/22 09:02 Albumin 4.1 g/dL (3.9-5) 01/30/22 09:02 Albumin/Globulin Ratio 1.2 % 01/30/22 09:02 Triglycerides 76 mg/dL (2-149) 01/30/22 09:02 Cholesterol 100 mg/dL (50-199) 01/30/22 09:02 LDL Cholesterol Direct 38 mg/dL (50-130) L 01/30/22 09:02 HDL Cholesterol 50 mg/dL (40-59) 01/30/22 09:02 Cholesterol/HDL Ratio 2.00 % 01/30/22 09:02 TSH 1.020 mlU/mL (0.270-4.200) 01/30/22 09:02 Hepatitis A IgM Ab Non-reactive (NonReactive) 01/30/22 09:02 Hep Bs Antigen Non-reactive (Negative) 01/30/22 09:02 Hep B Core IgM Ab Non-reactive (NonReactive) 01/30/22 09:02 Hepatitis C Antibody Non-reactive (NonReactive) 01/30/22 09:02 Last Vital Signs Temp 97.6 F 02/19/22 07:42 Pulse 69 02/19/22 09:31 Resp 18 02/19/22 07:42 BP 121/57 02/19/22 09:31 Pulse Ox 99 02/19/22 07:42
--- NOTE | 2022-02-19 13:24 | Event Note ---
Date: 02/19/22 Spoke the patient's daughter, Filippo. Discussed with her the patient's progress, treatment plan and discharge plan. I informed her that her father has improved significantly and no longer meets requirement for inpatient psych treatment. She says she's is trying to get him in an assisted living facility and would have the answer today. I informed her that Mr. Wisdom would discharge tomorrow. She thanks me and states she is okay with this decision.
[2022-02-19] MEDS: TAMSULOSIN 0.4 MG CAP PO SCH (21:09)
[2022-02-19] MEDS: DONEPEZIL 5 MG TAB PO SCH (21:09)
[2022-02-19] MEDS: QUEtiapine 100 MG TAB PO SCH (21:09)
--- NOTE | 2022-02-19 21:09 | Progress Note ---
Assessment and Plan - Patient Problems (1) Vascular dementia with behavioral disturbance Current Visit: Yes Status: Acute Plan to address problem: Verbal prompting, verbal redirection, benzodiazepine therapy as clinically indicated. (2) Cerebral atherosclerosis Current Visit: Yes Status: Acute Plan to address problem: Antiplatelet therapy as clinically indicated, supportive care. (3) Hypertension Current Visit: Yes Status: Acute Qualifiers: Hypertension type: primary hypertension Qualified Code(s): I10 - Essential (primary) hypertension Plan to address problem: Monitor blood pressure every shift, continue medical management. (4) Diabetes Current Visit: Yes Status: Acute Plan to address problem: Consistent carbohydrate diet, Accu-Chek, insulin protocol, hypoglycemia protocol. (5) Advance care planning Current Visit: Yes Status: Acute Plan to address problem: Disease education done, care plan discussed, diagnoses discussed, prognosis discussed, +30 minutes. History Interval history: 76 YO Male Vascular Dementia with Behavioral Disturbance, Cerebral Athe rosclerosis, DM, HTN, Encephalopathy admitted to [facility] for psychiatric stabilization. Consult placed by Dr. Zhang for medical management. Patient seen and evaluated in the recreation room. Patient resting comfortably. No reported nursing events. Patient exhibits diminished cognition and aphasia. Patient remains at baseline level of cognition and function. Hospitalist Physical - Constitutional Vitals: Temp Pulse Resp BP Pulse Ox 97.6 F 69 18 121/57 99 02/19/22 07:42 02/19/22 09:31 02/19/22 07:42 02/19/22 09:31 02/19/22 07:42 General appearance: Present: no acute distress, well-nourished - EENT Eyes: Present: PERRL ENT: hearing decreased - Neck Neck: Present: supple - Respiratory Respiratory effort: normal Respiratory: bilateral: diminished - Cardiovascular Rhythm: regular Heart Sounds: Present: S1 & S2 - Extremities Extremities: no ischemia Peripheral Pulses: within normal limits - Abdominal General gastrointestinal: soft, non-tender, non-distended - Integumentary Integumentary: Present: clear, dry - Psychiatric Psychiatric: cooperative - Neurologic Neurologic: CNII-XII intact Results - Labs CBC & Chem 7: 01/30/22 09:02 01/30/22 09:02 Labs: Laboratory Last Values WBC 5.7 K/mm3 (4.5-11.0) 01/30/22 09:02 RBC 4.87 M/mm3 (3.65-5.03) 01/30/22 09:02 Hgb 13.5 gm/dl (11.8-15.2) 01/30/22 09:02 Hct 41.0 % (35.5-45.6) 01/30/22 09:02 MCV 84 fl (84-94) 01/30/22 09:02 MCH 28 pg (28-32) 01/30/22 09:02 MCHC 33 % (32-34) 01/30/22 09:02 RDW 14.2 % (13.2-15.2) 01/30/22 09:02 Plt Count 116 K/mm3 (140-440) L 01/30/22 09:02 Lymph % (Auto) 26.8 % (13.4-35.0) 01/30/22 09:02 [place] % (Auto) 10.4 % (0.0-7.3) H 01/30/22 09:02 Eos % (Auto) 1.6 % (0.0-4.3) 01/30/22 09:02 Baso % (Auto) 0.5 % (0.0-1.8) 01/30/22 09:02 Lymph # (Auto) 1.5 K/mm3 (1.2-5.4) 01/30/22 09:02 [place] # (Auto) 0.6 K/mm3 (0.0-0.8) 01/30/22 09:02 Eos # (Auto) 0.1 K/mm3 (0.0-0.4) 01/30/22 09:02 Baso # (Auto) 0.0 K/mm3 (0.0-0.1) 01/30/22 09:02 Seg Neutrophils % 60.7 % (40.0-70.0) 01/30/22 09:02 Seg Neutrophils # 3.4 K/mm3 (1.8-7.7) 01/30/22 09:02 Sodium 136 mmol/L (137-145) L 01/30/22 09:02 Potassium 4.2 mmol/L (3.6-5.0) 01/30/22 09:02 Chloride 102.6 mmol/L (98-107) 01/30/22 09:02 Carbon Dioxide 22 mmol/L (22-30) 01/30/22 09:02 Anion Gap 16 mmol/L 01/30/22 09:02 BUN 16 mg/dL (9-20) 01/30/22 09:02 Creatinine 1.2 mg/dL (0.8-1.3) 01/30/22 09:02 Estimated GFR > 60 ml/min 01/30/22 09:02 BUN/Creatinine Ratio 13 % 01/30/22 09:02 Glucose 243 mg/dL (75-100) H 01/30/22 09:02 POC Glucose 221 mg/dL (70-105) H 02/19/22 19:54 Hemoglobin A1c 8.9 % (4-6) H 01/30/22 09:02 Calcium 9.4 mg/dL (8.4-10.2) 01/30/22 09:02 Total Bilirubin 0.50 mg/dL (0.1-1.2) 01/30/22 09:02 AST 17 units/L (5-40) 01/30/22 09:02 ALT 16 units/L (7-56) 01/30/22 09:02 Alkaline Phosphatase 89 units/L (35-129) 01/30/22 09:02 Total Protein 7.6 g/dL (6.3-8.2) 01/30/22 09:02 Albumin 4.1 g/dL (3.9-5) 01/30/22 09:02 Albumin/Globulin Ratio 1.2 % 01/30/22 09:02 Triglycerides 76 mg/dL (2-149) 01/30/22 09:02 Cholesterol 100 mg/dL (50-199) 01/30/22 09:02 LDL Cholesterol Direct 38 mg/dL (50-130) L 01/30/22 09:02 HDL Cholesterol 50 mg/dL (40-59) 01/30/22 09:02 Cholesterol/HDL Ratio 2.00 % 01/30/22 09:02 TSH 1.020 mlU/mL (0.270-4.200) 01/30/22 09:02 Hepatitis A IgM Ab Non-reactive (NonReactive) 01/30/22 09:02 Hep Bs Antigen Non-reactive (Negative) 01/30/22: Hep B Core IgM Ab Non-reactive (NonReactive) 01/30/22 09:02 Hepatitis C Antibody Non-reactive (NonReactive) 01/30/22 09:02 Manuel/IV: Voiding Method Toilet Active Medications - Current Medications Current Medications: Generic Name Dose Route Start Last Admin Trade Name Freq PRN Reason Stop Dose Admin Albuterol 2.5 mg 01/30/22 11:23 Albuterol 2.5 Mg/3 Ml Nebu IH Q4HRT PRN Shortness Of Breath Amlodipine Besylate 5 mg 01/30/22 12:00 02/19/22 09:31 Amlodipine 5 Mg Tab PO 5 mg DAILY TIFFANIE Administration Atorvastatin Calcium 40 mg 01/30/22 22:00 02/18/22 21:08 Atorvastatin 40 Mg Tab PO 40 mg QHS TIFFANIE Administration Clopidogrel Bisulfate 75 mg 01/30/22 12:00 02/19/22 09:30 Clopidogrel 75 Mg Tab PO 75 mg QDAY TIFFANIE Administration Dextrose 50 ml 01/30/22 15:15 Dextrose 50% In Water (25gm) 50 Ml Syringe IV Q30MIN PRN Hypoglycemia Protocol Docusate Sodium 100 mg 01/30/22 12:00 02/19/22 09:30 Docusate Sodium 100 Mg Cap PO 100 mg BID TIFFANIE Administration Donepezil HCl 5 mg 01/30/22 22:00 02/18/22 21:08 Donepezil 5 Mg Tab PO 5 mg HS TIFFANIE Administration Fluoxetine HCl 30 mg 01/31/22 10:00 02/19/22 09:30 Fluoxetine 10 Mg Tab PO 30 mg QDAY TIFFANIE Administration Gabapentin 200 mg 01/30/22 14:00 02/19/22 20:38 Gabapentin 100 Mg Cap PO 200 mg TID TIFFANIE Administration Insulin Glargine 40 units 01/30/22 22:00 02/18/22 21:09 Insulin Glargine 100 Units/Ml SUB-Q 40 units QHS TIFFANIE Administration Insulin Human Lispro 0 unit 01/30/22 16:30 02/19/22 16:02 Insulin Lispro 100 Unit/Ml SUB-Q Not Given ACHS TIFFANIE Protocol Losartan Potassium 50 mg 01/30/22 12:00 02/19/22 09:31 Losartan 50 Mg Tab PO Not Given QDAY TIFFANIE Quetiapine Fumarate 100 mg 02/09/22 22:00 02/18/22 21:08 Quetiapine 100 Mg Tab PO 100 mg QHS TIFFANIE Administration Quetiapine Fumarate 50 mg 02/09/22 10:00 06/09/22 09:30 Quetiapine 25 Mg Tab PO 50 mg DAILY TIFFANIE Administration Tamsulosin HCl 0.8 mg 01/30/22 22:00 02/18/22 21:09 Tamsulosin 0.4 Mg Cap PO 0.8 mg HS TIFFANIE Administration Nutrition/Malnutrition Assess - Dietary Evaluation Nutrition/Malnutrition Findings: Nutrition Notes Start: 02/06/22 11:26 Freq: Status: Active Protocol: Document 02/06/22 11:26 [facility] (Rec: 02/06/22 11:28 [facility] [id number]) Nutrition Notes Need for Assessment generated from: LOS Initial or Follow up Brief Note Current Diet Cardiac/Consistent CHO Height 5 ft 8 in Weight 80 kg [place] Body Weight (kg) 70.00 BMI 26.8 Weight Status Appropriate Subjective/Other Information Pt screened for LOS. He has consumed 100% of meals since admission. Percent of energy/protein needs met: 100% energy and pro Current % PO Good (75-100%) Minimum of two criteria No Is patient on ventilator? No Is Patient Ambulatory and/or Out of Bed Yes REE-([place]-St. Jeor-ambulatory/OOB) [ [id number]] Calculation Used for Recommendations [place]-St Jeor Additional Notes Pro needs 1-1.2g/k-96g/ day Fluid needs 1ml/kcal Nutrition Intervention Revisit per MD consult or patient Sign Off request:
--- NOTE | 2022-02-19 21:11 | Progress Note ---
Assessment and Plan - Patient Problems (1) Vascular dementia with behavioral disturbance Current Visit: Yes Status: Acute Plan to address problem: Verbal prompting, verbal redirection, benzodiazepine therapy as clinically indicated. (2) Cerebral atherosclerosis Current Visit: Yes Status: Acute Plan to address problem: Antiplatelet therapy as clinically indicated, supportive care. (3) Hypertension Current Visit: Yes Status: Acute Qualifiers: Hypertension type: primary hypertension Qualified Code(s): I10 - Essential (primary) hypertension Plan to address problem: Monitor blood pressure every shift, continue medical management. (4) Diabetes Current Visit: Yes Status: Acute Plan to address problem: Consistent carbohydrate diet, Accu-Chek, insulin protocol, hypoglycemia protocol. (5) Advance care planning Current Visit: Yes Status: Acute Plan to address problem: Disease education done, care plan discussed, diagnoses discussed, prognosis discussed, +30 minutes. History Interval history: 76 YO Male Vascular Dementia with Behavioral Disturbance, Cerebral Athe rosclerosis, DM, HTN, Encephalopathy admitted to [facility] for psychiatric stabilization. Consult placed by Dr. Zhang for medical management. Patient seen and evaluated in the recreation room. Patient resting comfortably. No reported nursing events. Patient exhibits diminished cognition and aphasia. Patient remains at baseline level of cognition and function. Hospitalist Physical - Constitutional Vitals: Temp Pulse Resp BP Pulse Ox 97.6 F 69 18 121/57 99 02/19/22 07:42 02/19/22 09:31 02/19/22 07:42 02/19/22 09:31 02/19/22 07:42 General appearance: Present: no acute distress, well-nourished - EENT Eyes: Present: PERRL ENT: hearing decreased - Neck Neck: Present: supple - Respiratory Respiratory effort: normal Respiratory: bilateral: diminished - Cardiovascular Rhythm: regular Heart Sounds: Present: S1 & S2 - Extremities Extremities: no ischemia Peripheral Pulses: within normal limits - Abdominal General gastrointestinal: soft, non-tender, non-distended - Integumentary Integumentary: Present: clear, dry - Psychiatric Psychiatric: cooperative - Neurologic Neurologic: CNII-XII intact Results - Labs CBC & Chem 7: 01/30/22 09:02 01/30/22 09:02 Labs: Laboratory Last Values WBC 5.7 K/mm3 (4.5-11.0) 01/30/22 09:02 RBC 4.87 M/mm3 (3.65-5.03) 01/30/22 09:02 Hgb 13.5 gm/dl (11.8-15.2) 01/30/22 09:02 Hct 41.0 % (35.5-45.6) 01/30/22 09:02 MCV 84 fl (84-94) 01/30/22 09:02 MCH 28 pg (28-32) 01/30/22 09:02 MCHC 33 % (32-34) 01/30/22 09:02 RDW 14.2 % (13.2-15.2) 01/30/22 09:02 Plt Count 116 K/mm3 (140-440) L 01/30/22 09:02 Lymph % (Auto) 26.8 % (13.4-35.0) 01/30/22 09:02 [place] % (Auto) 10.4 % (0.0-7.3) H 01/30/22 09:02 Eos % (Auto) 1.6 % (0.0-4.3) 01/30/22 09:02 Baso % (Auto) 0.5 % (0.0-1.8) 01/30/22 09:02 Lymph # (Auto) 1.5 K/mm3 (1.2-5.4) 01/30/22 09:02 [place] # (Auto) 0.6 K/mm3 (0.0-0.8) 01/30/22 09:02 Eos # (Auto) 0.1 K/mm3 (0.0-0.4) 01/30/22 09:02 Baso # (Auto) 0.0 K/mm3 (0.0-0.1) 01/30/22 09:02 Seg Neutrophils % 60.7 % (40.0-70.0) 01/30/22 09:02 Seg Neutrophils # 3.4 K/mm3 (1.8-7.7) 01/30/22 09:02 Sodium 136 mmol/L (137-145) L 01/30/22 09:02 Potassium 4.2 mmol/L (3.6-5.0) 01/30/22 09:02 Chloride 102.6 mmol/L (98-107) 01/30/22 09:02 Carbon Dioxide 22 mmol/L (22-30) 01/30/22 09:02 Anion Gap 16 mmol/L 01/30/22 09:02 BUN 16 mg/dL (9-20) 01/30/22 09:02 Creatinine 1.2 mg/dL (0.8-1.3) 01/30/22 09:02 Estimated GFR > 60 ml/min 01/30/22 09:02 BUN/Creatinine Ratio 13 % 01/30/22 09:02 Glucose 243 mg/dL (75-100) H 01/30/22 09:02 POC Glucose 221 mg/dL (70-105) H 02/19/22 19:54 Hemoglobin A1c 8.9 % (4-6) H 01/30/22 09:02 Calcium 9.4 mg/dL (8.4-10.2) 01/30/22 09:02 Total Bilirubin 0.50 mg/dL (0.1-1.2) 01/30/22 09:02 AST 17 units/L (5-40) 01/30/22 09:02 ALT 16 units/L (7-56) 01/30/22 09:02 Alkaline Phosphatase 89 units/L (35-129) 01/30/22 09:02 Total Protein 7.6 g/dL (6.3-8.2) 01/30/22 09:02 Albumin 4.1 g/dL (3.9-5) 01/30/22 09:02 Albumin/Globulin Ratio 1.2 % 01/30/22 09:02 Triglycerides 76 mg/dL (2-149) 01/30/22 09:02 Cholesterol 100 mg/dL (50-199) 01/30/22 09:02 LDL Cholesterol Direct 38 mg/dL (50-130) L 01/30/22 09:02 HDL Cholesterol 50 mg/dL (40-59) 01/30/22 09:02 Cholesterol/HDL Ratio 2.00 % 01/30/22 09:02 TSH 1.020 mlU/mL (0.270-4.200) 01/30/22 09:02 Hepatitis A IgM Ab Non-reactive (NonReactive) 01/30/22 09:02 Hep Bs Antigen Non-reactive (Negative) 01/30/22: Hep B Core IgM Ab Non-reactive (NonReactive) 01/30/22 09:02 Hepatitis C Antibody Non-reactive (NonReactive) 01/30/22 09:02 Manuel/IV: Voiding Method Toilet Active Medications - Current Medications Current Medications: Generic Name Dose Route Start Last Admin Trade Name Freq PRN Reason Stop Dose Admin Albuterol 2.5 mg 01/30/22 11:23 Albuterol 2.5 Mg/3 Ml Nebu IH Q4HRT PRN Shortness Of Breath Amlodipine Besylate 5 mg 01/30/22 12:00 02/19/22 09:31 Amlodipine 5 Mg Tab PO 5 mg DAILY TIFFANIE Administration Atorvastatin Calcium 40 mg 01/30/22 22:00 02/19/22 21:09 Atorvastatin 40 Mg Tab PO 40 mg QHS TIFFANIE Administration Clopidogrel Bisulfate 75 mg 01/30/22 12:00 02/19/22 09:30 Clopidogrel 75 Mg Tab PO 75 mg QDAY TIFFANIE Administration Dextrose 50 ml 01/30/22 15:15 Dextrose 50% In Water (25gm) 50 Ml Syringe IV Q30MIN PRN Hypoglycemia Protocol Docusate Sodium 100 mg 01/30/22 12:00 02/19/22 21:09 Docusate Sodium 100 Mg Cap PO 100 mg BID TIFFANIE Administration Donepezil HCl 5 mg 01/30/22 22:00 02/19/22 21:09 Donepezil 5 Mg Tab PO 5 mg HS TIFFANIE Administration Fluoxetine HCl 30 mg 01/31/22 10:00 02/19/22 09:30 Fluoxetine 10 Mg Tab PO 30 mg QDAY TIFFANIE Administration Gabapentin 200 mg 01/30/22 14:00 02/19/22 20:38 Gabapentin 100 Mg Cap PO 200 mg TID TIFFANIE Administration Insulin Glargine 40 units 01/30/22 22:00 02/18/22 21:09 Insulin Glargine 100 Units/Ml SUB-Q 40 units QHS TIFFANIE Administration Insulin Human Lispro 0 unit 01/30/22 16:30 02/19/22 16:02 Insulin Lispro 100 Unit/Ml SUB-Q Not Given ACHS TIFFANIE Protocol Losartan Potassium 50 mg 01/30/22 12:00 02/19/22 09:31 Losartan 50 Mg Tab PO Not Given QDAY TIFFANIE Quetiapine Fumarate 100 mg 02/09/22 22:00 02/19/22 21:09 Quetiapine 100 Mg Tab PO 100 mg QHS TIFFANIE Administration Quetiapine Fumarate 50 mg 02/09/22 10:00 06/09/22 09:30 Quetiapine 25 Mg Tab PO 50 mg DAILY TIFFANIE Administration Tamsulosin HCl 0.8 mg 01/30/22 22:00 02/19/22 21:09 Tamsulosin 0.4 Mg Cap PO 0.8 mg HS TIFFANIE Administration Nutrition/Malnutrition Assess - Dietary Evaluation Nutrition/Malnutrition Findings: Nutrition Notes Start: 02/06/22 11:26 Freq: Status: Active Protocol: Document 02/06/22 11:26 [facility] (Rec: 02/06/22 11:28 [facility] [id number]) Nutrition Notes Need for Assessment generated from: LOS Initial or Follow up Brief Note Current Diet Cardiac/Consistent CHO Height 5 ft 8 in Weight 80 kg [place] Body Weight (kg) 70.00 BMI 26.8 Weight Status Appropriate Subjective/Other Information Pt screened for LOS. He has consumed 100% of meals since admission. Percent of energy/protein needs met: 100% energy and pro Current % PO Good (75-100%) Minimum of two criteria No Is patient on ventilator? No Is Patient Ambulatory and/or Out of Bed Yes REE-(Webb-St. Jeor-ambulatory/OOB) [ [id number] [id number]] Calculation Used for Recommendations Webb-St Jeor Additional Notes Pro needs 1-1.2g/k-96g/ day Fluid needs 1ml/kcal Nutrition Intervention Revisit per MD consult or patient Sign Off request:
[2022-02-19] MEDS: INSULIN GLARGINE 100 UNITS/ML SUB-Q SCH (21:15)
[2022-02-20] MEDS: INSULIN LISPRO 100 UNIT/ML SUB-Q SCH ×2 (08:49→14:05)
[2022-02-20] MEDS: GABAPENTIN 100 MG CAP PO SCH (08:51)
[2022-02-20 09:57] VITALS: BP 122/71
[2022-02-20] MEDS: DOCUSATE SODIUM 100 MG CAP PO SCH (09:58)
[2022-02-20] MEDS: amLODIPine 5 MG TAB PO SCH (09:58)
[2022-02-20] MEDS: FLUoxetine 10 MG TAB PO SCH (09:59)
[2022-02-20] MEDS: QUEtiapine 25 MG TAB PO SCH (09:59)
[2022-02-20] MEDS: CLOPIDOGREL 75 MG TAB PO SCH (10:00)
[2022-02-20] MEDS: LOSARTAN 50 MG TAB PO SCH (10:01)
--- NOTE | 2022-02-20 10:37 | Discharge Summary ---
Providers - Providers Date of Admission: 01/30/22 00:20 Date of discharge: 02/20/22 Attending physician: DAVID MAS MD 01/29/22 22:41 Consult to Physician [CONS] Routine Comment: Consulting Provider: CHERRY NICHOLS Physician Instructions: Reason For Exam: New psych admit Primary care physician: DRAMATIC ART TEACHER Hospitalization Reason for admission: Agitation Admitting Diagnosis: F02.81 - DEMENTIA IN OTH DISEASES CLASSD ELSWHR W BEHAVIORAL DISTURB Condition: Stable Hospital course: The patient was provided inpatient psychiatric treatment with safe and supportive environment, group/individual therapy, psychiatric medication, medication adjustment, adverse effect monitor, medical evaluation, medical treatment, social service assessment, social support meeting, placement assessment and psycho-education. The patients mood, cognition, behavior, motivation, compliance to treatment and appreciation on family/social support are improved and stabilized. At the time of discharge, the patient had no suicidal ideas, no homicidal ideas, no aggressive thoughts, no endangering b ehavior and no debilitating adverse effects. The patient agreed on the treatment plan, understood the risk, benefit, alternative treatment, potential consequence of no treatment, and gave informed consent. Progress Note: 02/19:The patient was seen today. He is calm, and cooperative. He is articulating his thoughts much better. He says he feels pretty good and he slept well. He denies SI/HI or hallucinations. 02/18 The patient was seen today. He is calm and cooperative. He is pleasant and says he slept well. The patient says he feels "pretty good." He denies SI/HI or hallucinations of any kind. He is awaiting placement. 02/17 The patient was seen today. He is more organized than last week when I evaluated him. He is pleasant. He says "how are to with your beautiful self." He says he slept well/ The patient says his appetite is good. He denies SI/HI or hallucinations of any kind. Will discuss with the discharge planning for the patient. 02/16 The patient was seen by me today. He is pleasantly confused. I met him pacing slowly up and down the corridor, stopped to talk with me, able to state his name correctly otherwise unable to engage in meaningful conversation. Patient is unable to care for self and requires placement and 24-hr supervision. No medication adjustment today. Per Nursing Note: Pt received in the activity room sitting quietly with depressive look. "I don't why they are doing this to me. Please let me go home. I can take care of my self," he stated. Verbal support given, but unable to comprehend. Denies pain, SI, or HI. No acute distress observed. Plan: No medication adjustment indicated. Patient is ready for discharge. Patient requires 24-hour supervision 02/15: The patient was seen today. He is pleasantly confused. Patient is unable to care for self and requires placement and 24-hr supervision. No medication adjustment today. Per Nursing Note: pt is pleasantly confused, medication compliant, good appetite, no complaints voiced, slept through the night, no distress noted, will continue to monitor for safety. 02/14: The patient was seen today. He is pleasantly confused. He does not answer questions appropriately and talks incomprehensibly. Per nurses note, he is calm and compliant with medications. He often presents with confusion. Patient is unable to care for self and requires. placement and 24-hr supervision. No medication adjustment today 02/13: The patient was seen today. He is pleasantly confused. He does not answer questions appropriately and talks incomprehensibly. Per nurses note, he is calm and compliant with medications. He often presents with confusion. Patient is unable to care for self and requires placement and 24-hr supervision 02/12:The patient was seen in his room this morning. He is calm and cooperative. He reports doing well. He continues to have periods of confusion. No changes made. 02/11:The patient was seen in his room this morning. He states he could not sleep last night. The patient continues to mumble, difficult to understand. 02/10:The patient was seen in his room this morning.He is calm and cooperative. He continues to be confused and hard to understand. No changes made today. 02/09: The patient was seen in his room this morning. He is calm and cooperative. He continues to be confused. Increase Seroquel to 100mg po QHS. 02/08:The patient was seen in his room this morning. The patient is confused " they're talking about me going back to school. " No changes made. 02/07: The patient was seen today. The patient is tangential and confused. " I would like to call the applied exercise physiologist; I'm trying to get home." 02/06:The patient was seen today. He is calm and cooperative. the patient continues to present with confusion " I still want to speak with the police." he denies suicidal/homicidal ideation. No changes made today. 02/05: The patient was seen today. He is sitting in the dayroom eating breakfast. He is calm and cooperative. The patient is confused, but pleasant. He says he slept good. The patient says "I'm hoping to go home" he then laughs. He denies SI/HI or hallucinations. 02/04 The patient was seen today. He is calm and cooperative. It's difficult for him to articulate his thoughts. He did say he's feels okay and slept fine. 02/03 The patient was seen today. He has poor insight. He is calm and cooperative. He is confused but answers some simple questions. He says "I have a hard time saying what I want to say." The patient says "I thought I was going home." He could not articulate how he was feeling. 02/02 The patient was seen today. He is a little less confused today. He says he's doing okay. The patient says "I thought I was going home today." He denies SI/HI or hallucinations. He says he slept okay. 02/01 The patient was seen today. He is confused and unable to engage in the evaluation. He is talking nonsensically. He says "I don't know who moved me here." He then says "it was supposed to been three numbers." 01/31 The patient was seen today. He is confused and has poor insight. He says "they woke up with me last night." He's unable to engage in the evaluation due to his insight. Disposition: 30 STILL A PATIENT Allergies/Adverse Reactions: Allergies No Known Allergies Allergy (Verified 01/29/22 22:41) Vital Signs: Last Vital Signs Temp 98.4 F 02/20/22 08:59 Pulse 87 02/20/22 10:01 Resp 18 02/20/22 08:59 BP 122/71 02/20/22 10:01 Pulse Ox 97 02/20/22 08:59 Last Lab: Laboratory Last Values WBC 5.7 K/mm3 (4.5-11.0) 01/30/22 09:02 RBC 4.87 M/mm3 (3.65-5.03) 01/30/22 09:02 Hgb 13.5 gm/dl (11.8-15.2) 01/30/22 09:02 Hct 41.0 % (35.5-45.6) 01/30/22 09:02 MCV 84 fl (84-94) 01/30/22 09:02 MCH 28 pg (28-32) 01/30/22 09:02 MCHC 33 % (32-34) 01/30/22 09:02 RDW 14.2 % (13.2-15.2) 01/30/22 09:02 Plt Count 116 K/mm3 (140-440) L 01/30/22 09:02 Lymph % (Auto) 26.8 % (13.4-35.0) 01/30/22 09:02 [place] % (Auto) 10.4 % (0.0-7.3) H 01/30/22 09:02 Eos % (Auto) 1.6 % (0.0-4.3) 01/30/22 09:02 Baso % (Auto) 0.5 % (0.0-1.8) 01/30/22 09:02 Lymph # (Auto) 1.5 K/mm3 (1.2-5.4) 01/30/22 09:02 [place] # (Auto) 0.6 K/mm3 (0.0-0.8) 01/30/22 09:02 Eos # (Auto) 0.1 K/mm3 (0.0-0.4) 01/30/22 09:02 Baso # (Auto) 0.0 K/mm3 (0.0-0.1) 01/30/22 09:02 Seg Neutrophils % 60.7 % (40.0-70.0) 01/30/22 09:02 Seg Neutrophils # 3.4 K/mm3 (1.8-7.7) 01/30/22 09:02 Sodium 136 mmol/L (137-145) L 01/30/22 09:02 Potassium 4.2 mmol/L (3.6-5.0) 01/30/22 09:02 Chloride 102.6 mmol/L (98-107) 01/30/22 09:02 Carbon Dioxide 22 mmol/L (22-30) 01/30/22 09:02 Anion Gap 16 mmol/L 01/30/22 09:02 BUN 16 mg/dL (9-20) 01/30/22 09:02 Creatinine 1.2 mg/dL (0.8-1.3) 01/30/22 09:02 Estimated GFR > 60 ml/min 01/30/22 09:02 BUN/Creatinine Ratio 13 % 01/30/22 09:02 Glucose 243 mg/dL (75-100) H 01/30/22 09:02 POC Glucose 136 mg/dL (70-105) H 02/20/22 06:47 Hemoglobin A1c 8.9 % (4-6) H 01/30/22 09:02 Calcium 9.4 mg/dL (8.4-10.2) 01/30/22 09:02 Total Bilirubin 0.50 mg/dL (0.1-1.2) 01/30/22 09:02 AST 17 units/L (5-40) 01/30/22 09:02 ALT 16 units/L (7-56) 01/30/22 09:02 Alkaline Phosphatase 89 units/L (35-129) 01/30/22 09:02 Total Protein 7.6 g/dL (6.3-8.2) 01/30/22 09:02 Albumin 4.1 g/dL (3.9-5) 01/30/22 09:02 Albumin/Globulin Ratio 1.2 % 01/30/22 09:02 Triglycerides 76 mg/dL (2-149) 01/30/22 09:02 Cholesterol 100 mg/dL (50-199) 01/30/22 09:02 LDL Cholesterol Direct 38 mg/dL (50-130) L 01/30/22 09:02 HDL Cholesterol 50 mg/dL (40-59) 01/30/22 09:02 Cholesterol/HDL Ratio 2.00 % 01/30/22 09:02 TSH 1.020 mlU/mL (0.270-4.200) 01/30/22 09:02 Hepatitis A IgM Ab Non-reactive (NonReactive) 01/30/22 09:02 Hep Bs Antigen Non-reactive (Negative) 01/30/22 09:02 Hep B Core IgM Ab Non-reactive (NonReactive) 01/30/22 09:02 Hepatitis C Antibody Non-reactive (NonReactive) 01/30/22 09:02 Core Measure Documentation - Palliative Care Palliative Care/ Comfort Measures: Not Applicable - Core Measures Any of the following diagnoses?: none - VTE Discharge Requirements Deep Vein Thrombosis/Pulmonary Embolism Present on Admission: No Exam - Constitutional Vitals: Temp Pulse Resp BP Pulse Ox 98.4 F 87 18 122/71 97 02/20/22 08:59 02/20/22 10:01 02/20/22 08:59 02/20/22 10:01 02/20/22 08:59 Plan Activity: advance as tolerated Weight Bearing Status: Weight Bear as Tolerated Care Plan Goals: Maintain good and stable mental health. Plan of Treatment: The patient should be compliant with medications, not to use drugs and not to drink alcohol.The patient understands that if suicidal ideas, homicidal ideas, or any endangering thoughts/behavior arise, they should immediately seek for emergent assistance including but not limited to crisis hot line and emergency room. Follow up with outpatient Psychiatrist and PCP within 7 - 14 days of discharge. Follow up with: PRIMARY CARE, [Primary Care Provider] - 7 Days Prescriptions: QUEtiapine [SEROquel] 100 mg PO QHS 30 Days #30 tablet Gabapentin 200 mg PO TID 30 Days #90 cap FLUoxetine [PROzac] 30 mg PO QDAY 30 Days #30 tablet QUEtiapine [SEROquel] 50 mg PO DAILY 30 Days #30 tablet
== END 2022-02-20 14:00 | disposition home or self-care (01) | DRG 884 ==
LOC: UNDOADMIN 15:57 → 3A 15:57 → 5A 01-30 00:20
PROVIDERS: ADMIT Psychiatry & Neurology Psychiatry; ATTEND Psychiatry & Neurology Psychiatry
DX: F03.91 Unspecified dementia, unspecified severity, with behavioral disturbance (principal); I67.2 Cerebral atherosclerosis; I10 Essential (primary) hypertension; E11.9 Type 2 diabetes mellitus without complications; Z82.49 Family history of ischemic heart disease and other diseases of the circulatory system; Z20.822 Contact with and (suspected) exposure to COVID-19
CPT/HCPCS: 36415; 80053; 80061; 80074; 82962; 83036; 84443; 85025; G0378; Q9967; J1815

== ENCOUNTER 2022-05-17 10:42 | Emergency (ER) | payer MEDICARE ==
[2022-05-17 11:28] VITALS: BP 128/90
== END 2022-05-18 05:05 | disposition left against medical advice (07) ==
LOC: ED 10:42
DX: R41.82 Altered mental status, unspecified (principal); Z53.21 Procedure and treatment not carried out due to patient leaving prior to being seen by health care provider